=== PATIENT | male | born 1980 | race American Indian/Alaskan Native ===

== ENCOUNTER 2016-11-07 16:03 | Emergency (ER) | payer OTHER ==
[2016-11-07] MEDS ORDERED: MOTRIN PO ONE (19:18)
[2016-11-07] MEDS ORDERED: ULTRAM PO ONE (19:21)
[2016-11-07] MEDS ORDERED: MOTRIN ONE (19:38)
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
[2016-11-07 21:09] VITALS: BP 116/77
== END 2016-11-07 21:07 | disposition home or self-care (01) ==
LOC: ED 16:03
DX: S13.4XXA Sprain of ligaments of cervical spine, initial encounter (principal); S39.012A Strain of muscle, fascia and tendon of lower back, initial encounter; J45.909 Unspecified asthma, uncomplicated; V49.49XA Driver injured in collision with other motor vehicles in traffic accident, initial encounter; Y93.89 Activity, other specified; Y99.9 Unspecified external cause status; Y92.410 Unspecified street and highway as the place of occurrence of the external cause
CPT/HCPCS: 70450; 72072; 72100

== ENCOUNTER 2016-12-21 07:32 | Outpatient (CLI) | payer OTHER ==
[2016-12-21] MEDS ORDERED: PROVENTIL IH ONE (07:56)
== END 2016-12-21 07:33 | disposition home or self-care (01) ==
LOC: PF 07:32
PROVIDERS: ATTEND Internal Medicine
DX: J45.909 Unspecified asthma, uncomplicated (principal); J18.9 Pneumonia, unspecified organism; J47.9 Bronchiectasis, uncomplicated; Z22.321 Carrier or suspected carrier of Methicillin susceptible Staphylococcus aureus
CPT/HCPCS: 94060; 94640

== ENCOUNTER 2017-01-23 04:10 | Inpatient (IN) | payer OTHER ==
[~2017-01-23 04:10] MED LIST: INTROPIN DRIP 800 MG/D5W 250 ML IV ONE; SODIUM BICARBONATE IV ONE
[2017-01-23] MEDS ORDERED: PROVENTIL IH ONE ×2 (04:14→04:25)
[2017-01-23] MEDS ORDERED: ATROVENT IH ONE ×2 (04:14→04:25)
[2017-01-23] MEDS ORDERED: LEVOPHED DRIP 4 MG/NS 250 ML 4 MG/250 ML BAG IV ONE (04:23)
[2017-01-23] MEDS ORDERED: MAGNESIUM SULFATE 2GM/50ML 2 GM/50 ML BAG IV ONE (04:25)
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
[2017-01-23] MEDS ORDERED: XOPENEX IH ONE ×2 (04:43→05:19)
[2017-01-23 04:53] LABS: Urine Drugs of Abuse Note Disclamer
[2017-01-23] MEDS ORDERED: ARTIFICIAL TEARS OPHTH OINT OU PRN (04:53)
[2017-01-23] MEDS ORDERED: VASELINE LIP THERAPY TP PRN (04:53)
[2017-01-23] MEDS ORDERED: ATIVAN 100 MG in NACL 0.9% 50 ML, VIAFLEX EMPTY CONTAINER 0 ML IV SCH (05:00)
[2017-01-23] MEDS ORDERED: NACL 0.9% 500 ML IV SCH (05:00)
[2017-01-23] MEDS ORDERED: LEVOPHED DRIP 4 MG/NS 250 ML 4 MG/250 ML BAG IV SCH (05:00)
[2017-01-23] MEDS ORDERED: ATIVAN ONE (05:00)
[2017-01-23] MEDS ORDERED: ATIVAN IV ONE (05:01)
[2017-01-23 05:15] LABS: Bilirubin,Urine NEG (Negative); Blood,Urine NEG (Negative); Ketones,Urine NEG (Negative); Leukocyte Esterase,Urine NEG (Negative); Mucus,Urine FEW /HPF; Nitrite,Urine NEG (Negative); Protein,Urine <15 mg/dL mg/dL (Negative); Sperm,Urine 2+ /HPF (NP); Urobilinogen,Urine < 2.0 mg/dL (<2.0)
[2017-01-23 05:19] LABS: Hematocrit 46.3 % (35.5-45.6); Hemoglobin 14.9 gm/dl (11.8-15.2); Mean Corpuscular HGB Conc 32 % (32-34); Mean Corpuscular Hemoglobin 30 pg (28-32); Mean Corpuscular Volume 93 fl (84-94)
[2017-01-23 05:26] LABS: INR 0.98 (0.87-1.13); Partial Thromboplastin Time 27.6 Sec. (24.2-36.6)
[2017-01-23 05:29] LABS: ISTAT Base Excess 6; ISTAT HCO3 31.8; ISTAT PCO2 61.9 (35-45); ISTAT PH 7.318 (7.35-7.45); ISTAT PO2 325 (80-105); ISTAT SO2 100; ISTAT TCO2 34
[2017-01-23 05:29] LABS: ISTAT Base Excess 1; ISTAT HCO3 29.7; ISTAT PCO2 79.2 (35-45); ISTAT PH 7.182 (7.35-7.45); ISTAT PO2 50 (80-105); ISTAT SO2 74; ISTAT TCO2 32
[2017-01-23 05:31] LABS: White Blood Count 24.4 K/mm3 (4.5-11.0)
[2017-01-23] MEDS ORDERED: NACL 0.9% 1000 ML 500 ML IV ONE (05:38)
[2017-01-23 05:44] LABS: Creatine Kinase MB 7.1 ng/mL (0.0-4.0)
[2017-01-23 05:46] LABS: Alanine Aminotransferase 25 units/L (7-56); Albumin 4.8 g/dL (3.9-5); Albumin/Globulin Ratio 1.5 %; Alkaline Phosphatase 83 units/L (35-129); Anion Gap 29 mmol/L; BUN/Creatinine Ratio 11.11; Blood Urea Nitrogen 10 mg/dL (9-20); Calcium 9.9 mg/dL (8.4-10.2); Carbon Dioxide 23 mmol/L (22-30); Chloride 99.4 mmol/L (98-107); Creatine Kinase 471 units/L (55-170); Glucose 71 mg/dL (75-100); Potassium 5.6 mmol/L (3.6-5.0); Sodium 146 mmol/L (137-145); Total Protein 8.1 g/dL (6.3-8.2)
[2017-01-23 06:04] LABS: Basophils % (Manual) 0 % (0.0-1.8); Blastocytes % (Manual) 0 %; Platelet Clumps 1+
[2017-01-23 06:05] LABS: Anisocytosis 1+; Diff Status Complete; Platelet Estimate Appe
[2017-01-23 06:08] LABS: Platelet Count 55 K/mm3 (140-440)
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
[2017-01-23] MEDS ORDERED: DUONEB *Not for PRN Use IH ONE (07:47)
[2017-01-23] MEDS: DUONEB *Not for PRN Use IH SCH ×3 (07:49→13:42)
[2017-01-23 08:17] LABS: Creatine Kinase MB 6.9 ng/mL (0.0-4.0)
[2017-01-23 08:18] LABS: Creatine Kinase 503 units/L (55-170)
--- NOTE | 2017-01-23 08:56 | Event Note ---
Date: 01/23/17 Patient is 36yo presented with asthma exacerbation, then collapsed in ED, cardio -resp arrest.Code asif run for 12 mins , intubated,resuscitated and now admitted to ICU. I have seen and examined him. Will obtain CT head. Obtain cardiology consult, Echo. I discussed with his mother on phone.
--- NOTE | 2017-01-23 09:14 | XRay Report ---
AP CHEST :01/23/17 04:10:00 CLINICAL: Respiratory arrest. Post intubation. COMPARISON:11/22/15 FINDINGS: The endotracheal tube is in satisfactory position. A nasogastric tube tip is below the diaphragm and not included on the image. Normal heart and pulmonary vessels. The lungs are normally expanded and clear. No pneumothorax. IMPRESSION: Satisfactory position of the endotracheal tube.No CHF or pneumonia.
[2017-01-23] MEDS ORDERED: DIPRIVAN 10 MG/ML 1,000 MG/100 ML BOTTLE IV ONE (09:18)
[2017-01-23] MEDS: DIPRIVAN 10 MG/ML 1,000 MG/100 ML BOTTLE IV SCH ×2 (09:35→20:26)
[2017-01-23] MEDS: LOVENOX SUB-Q SCH (10:04)
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
[2017-01-23] MEDS: VITAMIN B-1 PO SCH (11:06)
[2017-01-23] MEDS ORDERED: PANCREAZE DR 10,500 UNIT FEEDTUBE PRN (11:06)
[2017-01-23] MEDS ORDERED: SODIUM BICARBONATE FEEDTUBE PRN (11:06)
[2017-01-23] MEDS ORDERED: SIMPLE SYRUP FEEDTUBE PRN ×2 (11:06)
[2017-01-23] MEDS: FOLVITE PO SCH (11:06)
[2017-01-23 12:53] LABS: Creatine Kinase MB 9.2 ng/mL (0.0-4.0)
[2017-01-23 12:54] LABS: Creatine Kinase 523 units/L (55-170)
[2017-01-23] MEDS ORDERED: SODIUM PHOSPHATE 30 MMOL in NACL 0.9% 500 ML 500 ML IV ONE (12:56)
[2017-01-23] MEDS ORDERED: MORPHINE IV ONE (15:24)
[2017-01-23] MEDS: TYLENOL PO PRN (15:56)
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
[2017-01-23] MEDS ORDERED: D5/0.45NS 1,000 ML IV SCH (17:00)
[2017-01-23] MEDS: NACL 0.45% 1000 ML 1,000 ML IV SCH (17:13)
[2017-01-23] MEDS: XOPENEX IH SCH ×2 (18:19→23:30)
[2017-01-23] MEDS: BROVANA NEBU IH SCH (19:39)
[2017-01-23] MEDS: PULMICORT IH SCH (19:39)
[2017-01-24] MEDS: NACL 0.45% 1000 ML 1,000 ML IV SCH (02:42)
[2017-01-24 05:04] LABS: Hematocrit 40.5 % (35.5-45.6); Hemoglobin 13.6 gm/dl (11.8-15.2); Mean Corpuscular HGB Conc 34 % (32-34); Mean Corpuscular Hemoglobin 30 pg (28-32); Mean Corpuscular Volume 90 fl (84-94); Red Blood Count 4.52 M/mm3 (3.65-5.03); Red Cell Distribution Width 14.5 % (13.2-15.2)
[2017-01-24 05:05] LABS: ISTAT Base Excess 6; ISTAT HCO3 29.6; ISTAT PCO2 40.5 (35-45); ISTAT PH 7.472 (7.35-7.45); ISTAT PO2 92 (80-105); ISTAT SO2 98; ISTAT TCO2 31
[2017-01-24 05:22] LABS: Anion Gap 18 mmol/L; BUN/Creatinine Ratio 17.14; Blood Urea Nitrogen 12 mg/dL (9-20); Calcium 8.6 mg/dL (8.4-10.2); Carbon Dioxide 25 mmol/L (22-30); Chloride 97.3 mmol/L (98-107); Glucose 197 mg/dL (75-100); Potassium 4.3 mmol/L (3.6-5.0); Sodium 136 mmol/L (137-145)
[2017-01-24 05:24] LABS: Platelet Count 45 K/mm3 (140-440); White Blood Count 24.7 K/mm3 (4.5-11.0)
[2017-01-24 06:12] LABS: Anisocytosis 1+; Basophils % (Manual) 0 % (0.0-1.8); Blastocytes % (Manual) 0 %; Eosinophils % (Manual) 0 % (0.0-4.3); Platelet Clumps 1+; Platelet Estimate Consistent w Auto
[2017-01-24 06:13] LABS: Diff Status Complete
[2017-01-24] MEDS ORDERED: NACL 0.9% 1000 ML 1,000 ML IV SCH (07:00)
--- NOTE | 2017-01-24 07:36 | XRay Report ---
AP CHEST: HISTORY: Followup respiratory failure The endotracheal tube and nasogastric tube remain in adequate position. AP view of the chest demonstrates a normal mediastinal and cardiac contour with clear lungs and normal bony and soft tissue structures. IMPRESSION: Unremarkable AP chest. No change since yesterday's exam.
--- NOTE | 2017-01-24 07:57 | Progress Note ---
Assessment and Plan Assessment and plan: Cardio-respiratory arrest. Patient collapsed as soon as he walked into ED. Donta asif was called and he was resuscitated, intubated. Pulm following Acute asthma exacerbation. On solu-medrol, Duoneb Acute respiratory failure due to asthma exacerbation. Cont vent management Fever may be SIRS. To rule out sepsis. Start iv Antibiotics. Leukocytosis. WBC 24.2. Start empiric Antibiotics Thrombocytopenia. etiology unclear. Platelets 45 today. requested records from [facility] DVT prophylaxis with SCDs only. Not on heparin/Lovenox because of thrombocytopenia Full code status History Interval history: Patient with asthma exacerbation, cardio-respiratory arrest, Still intubated, Now has fever Hospitalist Physical - Physical exam Narrative exam: Gen Appearance: Intubated, sedated HEENT: normocephalic, atraumatic Neck: supple, no JVD Lungs: clear to auscultation bilaterally, no crackles or wheezes Heart: S1 and S2 regular, no murmurs or gallop Abdomen: Soft, non-tender, non-distended, normal bowel sounds Extremity: No edema, clubbing or cyanosis Neuro : Intubated,sedated - Constitutional Vitals: Temp Pulse Resp BP Pulse Ox 100.9 F H 100 H 20 129/79 99 01/24/17 03:36 01/24/17 06:00 01/24/17 06:00 01/24/17 06:00 01/24/17 06:00 General appearance: Present: other (patient is intubated.) Results - Labs CBC & Chem 7: 01/24/17 03:38 01/24/17 03:38 Labs: Laboratory Last Values WBC 24.7 K/mm3 (4.5-11.0) H 01/24/17 03:38 RBC 4.52 M/mm3 (3.65-5.03) 01/24/17 03:38 Hgb 13.6 gm/dl (11.8-15.2) 01/24/17 03:38 Hct 40.5 % (35.5-45.6) 01/24/17 03:38 MCV 90 fl (84-94) D 01/24/17 03:38 MCH 30 pg (28-32) 01/24/17 03:38 MCHC 34 % (32-34) 01/24/17 03:38 RDW 14.5 % (13.2-15.2) 01/24/17 03:38 Plt Count 45 K/mm3 (140-440) L 01/24/17 03:38 Lymph # Frame Gate Mortiser Operator 01/23/17 04:22 Add Manual Diff Complete 01/24/17 03:38 Total Counted 100 01/24/17 03:38 Seg Neutrophils % Frame Gate Mortiser Operator 01/23/17 04:22 Seg Neuts % (Manual) 77.0 % (40.0-70.0) H 01/24/17 03:38 Band Neutrophils % 11.0 % 01/24/17 03:38 Lymphocytes % (Manual) 6.0 % (13.4-35.0) L 01/24/17 03:38 Reactive Lymphs % (Man) 0 % 01/24/17 03:38 Monocytes % (Manual) 6.0 % (0.0-7.3) 01/24/17 03:38 Eosinophils % (Manual) 0 % (0.0-4.3) 01/24/17 03:38 Basophils % (Manual) 0 % (0.0-1.8) 01/24/17 03:38 Metamyelocytes % 0 % 01/24/17 03:38 Myelocytes % 0 % 01/24/17 03:38 Promyelocytes % 0 % 01/24/17 03:38 Blast Cells % 0 % 01/24/17 03:38 Nucleated RBC % Not Reportable 01/24/17 03:38 Seg Neutrophils # Man 19.0 K/mm3 (1.8-7.7) H 01/24/17 03:38 Band Neutrophils # 2.7 K/mm3 01/24/17 03:38 Lymphocytes # (Manual) 1.5 K/mm3 (1.2-5.4) 01/24/17 03:38 Abs React Lymphs (Man) 0.0 K/mm3 01/24/17 03:38 Monocytes # (Manual) 1.5 K/mm3 (0.0-0.8) H 01/24/17 03:38 Eosinophils # (Manual) 0.0 K/mm3 (0.0-0.4) 01/24/17 03:38 Basophils # (Manual) 0.0 K/mm3 (0.0-0.1) 01/24/17 03:38 Metamyelocytes # 0.0 K/mm3 01/24/17 03:38 Myelocytes # 0.0 K/mm3 01/24/17 03:38 Promyelocytes # 0.0 K/mm3 01/24/17 03:38 Blast Cells # 0.0 K/mm3 01/24/17 03:38 WBC Morphology Not Reportable 01/24/17 03:38 Hypersegmented Neuts Not Reportable 01/24/17 03:38 Hyposegmented Neuts Not Reportable 01/24/17 03:38 Hypogranular Neuts Not Reportable 01/24/17 03:38 Smudge Cells Not Reportable 01/24/17 03:38 Toxic Granulation Not Reportable 01/24/17 03:38 Toxic Vacuolation Not Reportable 01/24/17 03:38 Dohle Bodies Not Reportable 01/24/17 03:38 Pelger-Huet Anomaly Not Reportable 01/24/17 03:38 Noe Rods Not Reportable 01/24/17 03:38 Platelet Estimate Consistent w auto 01/24/17 03:38 Clumped Platelets 1+ 01/24/17 03:38 Plt Clumps, EDTA Not Reportable 01/24/17 03:38 Large Platelets Not Reportable 01/24/17 03:38 Giant Platelets Not Reportable 01/24/17 03:38 Platelet Satelliting Not Reportable 01/24/17 03:38 Plt Morphology Comment Not Reportable 01/24/17 03:38 RBC Morphology Not Reportable 01/24/17 03:38 Dimorphic RBCs Not Reportable 01/24/17 03:38 Polychromasia Not Reportable 01/24/17 03:38 Hypochromasia Not Reportable 01/24/17 03:38 Poikilocytosis Not Reportable 01/24/17 03:38 Anisocytosis 1+ 01/24/17 03:38 Microcytosis Not Reportable 01/24/17 03:38 Macrocytosis Not Reportable 01/24/17 03:38 Spherocytes Not Reportable 01/24/17 03:38 Pappenheimer Bodies Not Reportable 01/24/17 03:38 Sickle Cells Not Reportable 01/24/17 03:38 Target Cells Not Reportable 01/24/17 03:38 Tear Drop Cells Not Reportable 01/24/17 03:38 Ovalocytes Not Reportable 01/24/17 03:38 Helmet Cells Not Reportable 01/24/17 03:38 Dawkins-Kismet Bodies Not Reportable 01/24/17 03:38 [place] Rings Not Reportable 01/24/17 03:38 [place] Cells Not Reportable 01/24/17 03:38 Bite Cells Not Reportable 01/24/17 03:38 Crenated Cell Not Reportable 01/24/17 03:38 Elliptocytes Not Reportable 01/24/17 03:38 Acanthocytes (Spur) Not Reportable 01/24/17 03:38 Rouleaux Not Reportable 01/24/17 03:38 Hemoglobin C Crystals Not Reportable 01/24/17 03:38 Schistocytes Not Reportable 01/24/17 03:38 Malaria parasites Not Reportable 01/24/17 03:38 Luis Carlos Bodies Not Reportable 01/24/17 03:38 Hem Pathologist Commnt No 01/24/17 03:38 PT 13.5 Sec. (12.2-14.9) 01/23/17 04:22 INR 0.98 (0.87-1.13) 01/23/17 04:22 APTT 27.6 Sec. (24.2-36.6) 01/23/17 04:22 D-Dimer 204.60 ng/mlDDU (0-234) 01/23/17 Unknown POC ABG pH 7.472 (7.35-7.45) H 01/24/17 04:46 POC ABG pCO2 40.5 (35-45) 01/24/17 04:46 POC ABG pO2 92 (80-105) 01/24/17 04:46 POC ABG HCO3 29.6 01/24/17 04:46 POC ABG Total CO2 31 01/24/17 04:46 POC ABG O2 Sat 98 01/24/17 04:46 POC ABG Base Excess 6 01/24/17 04:46 FiO2 40 % 01/24/17 04:46 Sodium 136 mmol/L (137-145) L D 01/24/17 03:38 Potassium 4.3 mmol/L (3.6-5.0) 01/24/17 03:38 Chloride 97.3 mmol/L (98-107) L 01/24/17 03:38 Carbon Dioxide 25 mmol/L (22-30) 01/24/17 03:38 Anion Gap 18 mmol/L 01/24/17 03:38 BUN 12 mg/dL (9-20) 01/24/17 03:38 Creatinine 0.7 mg/dL (0.8-1.5) L 01/24/17 03:38 Estimated GFR > 60 ml/min 01/24/17 03:38 BUN/Creatinine Ratio 17.14 % 01/24/17 03:38 Glucose 197 mg/dL (75-100) H 01/24/17 03:38 POC Glucose 193 (70-105) H 01/24/17 05:04 Calcium 8.6 mg/dL (8.4-10.2) 01/24/17 03:38 Phosphorus 1.30 mg/dL (2.5-4.5) L 01/23/17 12:27 Magnesium 3.30 mg/dL (1.7-2.3) H 01/23/17 10:24 Total Bilirubin 0.70 mg/dL (0.1-1.2) 01/23/17 04:23 AST 26 units/L (5-40) 01/23/17 04:23 ALT 25 units/L (7-56) 01/23/17 04:23 Alkaline Phosphatase 83 units/L (35-129) 01/23/17 04:23 Total Creatine Kinase 523 units/L (55-170) H 01/23/17 12:27 CK-MB (CK-2) 9.2 ng/mL (0.0-4.0) H 01/23/17 12:27 CK-MB (CK-2) Rel Index 1.7 (0-4) 01/23/17 12:27 Troponin T < 0.010 ng/mL (0.00-0.029) 01/23/17 12:27 NT-Pro-B Natriuret Pep 22.36 pg/mL (0-450) 01/23/17 04:23 Total Protein 8.1 g/dL (6.3-8.2) 01/23/17 04:23 Albumin 4.8 g/dL (3.9-5) 01/23/17 04:23 Albumin/Globulin Ratio 1.5 % 01/23/17 04:23 Urine Color Yellow (Yellow) 01/23/17 Unknown Urine Turbidity Clear (Clear) 01/23/17 Unknown Urine pH 5.0 (5.0-7.0) 01/23/17 Unknown Ur Specific [place] 1.018 (1.003-1.030) 01/23/17 Unknown Urine Protein <15 mg/dl mg/dL (Negative) 01/23/17 Unknown Urine Glucose (UA) Neg mg/dL (Negative) 01/23/17 Unknown Urine Ketones Neg mg/dL (Negative) 01/23/17 Unknown Urine Blood Neg (Negative) 01/23/17 Unknown Urine Nitrite Neg (Negative) 01/23/17 Unknown Urine Bilirubin Neg (Negative) 01/23/17 Unknown Urine Urobilinogen < 2.0 mg/dL (<2.0) 01/23/17 Unknown Ur Leukocyte Esterase Neg (Negative) 01/23/17 Unknown Urine WBC (Auto) 2.0 /HPF (0.0-6.0) 01/23/17 Unknown Urine RBC (Auto) 1.0 /HPF (0.0-6.0) 01/23/17 Unknown Urine Mucus Few /HPF 01/23/17 Unknown Urine Sperm 2+ /HPF (REGISTERED PHARMACIST) 01/23/17 Unknown Urine Opiates Screen Presumptive positive 01/23/17 Unknown Urine Methadone Screen Presumptive negative 01/23/17 Unknown Ur Barbiturates Screen Presumptive positive 01/23/17 Unknown Ur Phencyclidine Scrn Presumptive negative 01/23/17 Unknown Ur Amphetamines Screen Presumptive negative 01/23/17 Unknown U Benzodiazepines Scrn Presumptive positive 01/23/17 Unknown Urine Cocaine Screen Presumptive negative 01/23/17 Unknown U Marijuana (THC) Screen Presumptive negative 01/23/17 Unknown Drugs of Abuse Note Disclamer 01/23/17 Unknown
[2017-01-24] MEDS: PULMICORT IH SCH ×2 (08:05→20:18)
[2017-01-24] MEDS: BROVANA NEBU IH SCH ×2 (08:05→20:20)
[2017-01-24] MEDS: XOPENEX IH SCH ×2 (08:07→15:35)
[2017-01-24] MEDS: PEPCID PO SCH ×2 (09:34→22:20)
[2017-01-24] MEDS: FOLVITE PO SCH (09:34)
[2017-01-24] MEDS: VITAMIN B-1 PO SCH (09:34)
[2017-01-24] MEDS: LOVENOX SUB-Q SCH (09:35)
[2017-01-24] MEDS ORDERED: VANCOMYCIN VIAL IV ONE (10:49)
[2017-01-24] MEDS ORDERED: VANCOMYCIN PHARMACY TO DOSE IV SCH (11:00)
--- NOTE | 2017-01-24 11:48 | Progress Note ---
Assessment and Plan 36 y/o male with acute respiratory failure, thought secondary to asthma exacerbation. 1. Changed steroids to 60q6, continue 2. Added pulmicort and brovana, continue 3. continue scheduled short acting nebs 4. Will obtain EEG off sedation. Appreciate neuro assistance 5. DVT and GI prophylaxis 6. Feed patient, continue CCT 31 minutes. Subjective Date of service: 01/24/17 Interval history: No acute events. Still with jerking movements. Maintained with propofol. Family at bedside. I spoke with mom on yesterday. Platelets. Objective Vital Signs - 12hr 01/23/17 01/23/17 01/24/17 23:47 23:50 00:00 Temperature Pulse Rate 113 H 111 H Pulse Rate [ 112 H Anterior Bilateral Throughout] Respiratory 16 17 Rate Respiratory 18 Rate [Anterior Bilateral Throughout] Blood Pressure 136/82 128/80 O2 Sat by Pulse 98 98 Oximetry 01/24/17 01/24/17 01/24/17 00:10 00:20 00:30 Temperature Pulse Rate 110 H 109 H 116 H Pulse Rate [ Anterior Bilateral Throughout] Respiratory 18 19 19 Rate Respiratory Rate [Anterior Bilateral Throughout] Blood Pressure 128/80 135/80 131/78 O2 Sat by Pulse 98 99 97 Oximetry 01/24/17 01/24/17 01/24/17 00:40 00:50 01:00 Temperature Pulse Rate 114 H 117 H 117 H Pulse Rate [ Anterior Bilateral Throughout] Respiratory 18 18 18 Rate Respiratory Rate [Anterior Bilateral Throughout] Blood Pressure 131/78 135/80 123/78 O2 Sat by Pulse 99 98 97 Oximetry 01/24/17 01/24/17 01/24/17 01:10 01:20 01:30 Temperature Pulse Rate 114 H 108 H 112 H Pulse Rate [ Anterior Bilateral Throughout] Respiratory 19 19 19 Rate Respiratory Rate [Anterior Bilateral Throughout] Blood Pressure 123/78 136/78 138/76 O2 Sat by Pulse 98 98 97 Oximetry 01/24/17 01/24/17 01/24/17 01:40 01:50 02:00 Temperature Pulse Rate 108 H 111 H 118 H Pulse Rate [ Anterior Bilateral Throughout] Respiratory 19 19 17 Rate Respiratory Rate [Anterior Bilateral Throughout] Blood Pressure 138/76 134/82 134/83 O2 Sat by Pulse 98 98 97 Oximetry 01/24/17 01/24/17 01/24/17 02:10 02:20 02:30 Temperature Pulse Rate 119 H 123 H 126 H Pulse Rate [ Anterior Bilateral Throughout] Respiratory 18 20 24 Rate Respiratory Rate [Anterior Bilateral Throughout] Blood Pressure 134/83 133/91 122/92 O2 Sat by Pulse 98 99 97 Oximetry 01/24/17 01/24/17 01/24/17 02:40 02:50 03:00 Temperature Pulse Rate 122 H 116 H 105 H Pulse Rate [ Anterior Bilateral Throughout] Respiratory 21 19 18 Rate Respiratory Rate [Anterior Bilateral Throughout] Blood Pressure 122/92 134/83 132/87 O2 Sat by Pulse 99 98 Oximetry 01/24/17 01/24/17 01/24/17 03:10 03:20 03:30 Temperature Pulse Rate 105 H 109 H 105 H Pulse Rate [ Anterior Bilateral Throughout] Respiratory 19 19 18 Rate Respiratory Rate [Anterior Bilateral Throughout] Blood Pressure 132/87 139/81 139/81 O2 Sat by Pulse 99 98 98 Oximetry 01/24/17 01/24/17 01/24/17 03:36 03:40 03:41 Temperature 100.9 F H Pulse Rate 108 H 109 H Pulse Rate [ Anterior Bilateral Throughout] Respiratory 19 Rate Respiratory Rate [Anterior Bilateral Throughout] Blood Pressure 122/74 122/74 O2 Sat by Pulse 97 97 Oximetry 01/24/17 01/24/17 01/24/17 03:50 04:00 04:10 Temperature Pulse Rate 111 H 110 H 109 H Pulse Rate [ Anterior Bilateral Throughout] Respiratory 19 19 19 Rate Respiratory Rate [Anterior Bilateral Throughout] Blood Pressure 126/76 120/76 120/76 O2 Sat by Pulse 98 96 97 Oximetry 01/24/17 01/24/17 01/24/17 04:20 04:30 04:40 Temperature Pulse Rate 108 H 104 H 110 H Pulse Rate [ Anterior Bilateral Throughout] Respiratory 19 18 19 Rate Respiratory Rate [Anterior Bilateral Throughout] Blood Pressure 134/84 134/86 134/86 O2 Sat by Pulse 97 95 99 Oximetry 01/24/17 01/24/17 01/24/17 04:50 05:00 05:10 Temperature Pulse Rate 111 H Pulse Rate [ Anterior Bilateral Throughout] Respiratory 19 Rate Respiratory Rate [Anterior Bilateral Throughout] Blood Pressure 134/86 134/84 134/84 O2 Sat by Pulse 100 100 100 Oximetry 01/24/17 01/24/17 01/24/17 05:20 05:30 05:40 Temperature Pulse Rate 101 H 97 H 94 H Pulse Rate [ Anterior Bilateral Throughout] Respiratory 18 20 20 Rate Respiratory Rate [Anterior Bilateral Throughout] Blood Pressure 135/84 141/83 141/83 O2 Sat by Pulse 100 100 100 Oximetry 01/24/17 01/24/17 01/24/17 05:50 06:00 06:10 Temperature Pulse Rate 97 H 100 H 102 H Pulse Rate [ Anterior Bilateral Throughout] Respiratory 20 20 20 Rate Respiratory Rate [Anterior Bilateral Throughout] Blood Pressure 141/83 129/79 129/79 O2 Sat by Pulse 99 99 99 Oximetry 01/24/17 01/24/17 01/24/17 06:20 06:30 06:40 Temperature Pulse Rate 105 H 109 H 100 H Pulse Rate [ Anterior Bilateral Throughout] Respiratory 17 18 21 Rate Respiratory Rate [Anterior Bilateral Throughout] Blood Pressure 129/79 116/86 116/86 O2 Sat by Pulse 96 97 99 Oximetry 01/24/17 01/24/17 01/24/17 06:50 07:00 07:10 Temperature Pulse Rate 102 H 105 H 101 H Pulse Rate [ Anterior Bilateral Throughout] Respiratory 17 21 18 Rate Respiratory Rate [Anterior Bilateral Throughout] Blood Pressure 116/86 136/77 136/77 O2 Sat by Pulse 99 98 98 Oximetry 01/24/17 01/24/17 01/24/17 07:20 07:30 07:40 Temperature Pulse Rate 105 H 94 H 96 H Pulse Rate [ Anterior Bilateral Throughout] Respiratory 19 19 20 Rate Respiratory Rate [Anterior Bilateral Throughout] Blood Pressure 136/77 139/69 139/69 O2 Sat by Pulse 98 98 98 Oximetry 01/24/17 01/24/17 01/24/17 07:50 08:00 08:10 Temperature 99.9 F H Pulse Rate 116 H 102 H 117 H Pulse Rate [ 115 H Anterior Bilateral Throughout] Respiratory 20 16 19 Rate Respiratory 20 Rate [Anterior Bilateral Throughout] Blood Pressure 139/69 132/98 132/98 O2 Sat by Pulse 97 98 97 Oximetry 01/24/17 01/24/17 01/24/17 08:15 08:20 08:30 Temperature Pulse Rate 114 H 112 H 100 H Pulse Rate [ 114 H Anterior Bilateral Throughout] Respiratory 19 19 Rate Respiratory 18 Rate [Anterior Bilateral Throughout] Blood Pressure 132/98 132/98 131/89 O2 Sat by Pulse 97 97 100 Oximetry 01/24/17 11:23 Temperature Pulse Rate 112 H Pulse Rate [ Anterior Bilateral Throughout] Respiratory Rate Respiratory Rate [Anterior Bilateral Throughout] Blood Pressure 148/90 O2 Sat by Pulse 98 Oximetry Constitutional: no acute distress, comatose (secondary to medications) Eyes: non-icteric ENT: other (orally intubated sedated) Neck: supple Effort: mildly labored Ascultation: Bilateral: clear Percussion: Bilateral: not dull Cardiovascular: regular rate and rhythm (but sinus tach) Gastrointestinal: normoactive bowel sounds, other (abdominal muscles are contracted) Integumentary: normal Extremities: no cyanosis, no edema, pink and warm, pulses normal CBC and BMP: 01/24/17 03:38 01/24/17 03:38 ABG, PT/INR, D-dimer: ABG POC ABG pH 7.472 (7.35-7.45) H 01/24/17 04:46 POC ABG pCO2 40.5 (35-45) 01/24/17 04:46 POC ABG pO2 92 (80-105) 01/24/17 04:46 POC ABG HCO3 29.6 01/24/17 04:46 POC ABG Total CO2 31 01/24/17 04:46 POC ABG O2 Sat 98 01/24/17 04:46 PT/INR, D-dimer PT 13.5 Sec. (12.2-14.9) 01/23/17 04:22 INR 0.98 (0.87-1.13) 01/23/17 04:22 D-Dimer 204.60 ng/mlDDU (0-234) 01/23/17 Unknown Abnormal lab findings: Abnormal Labs 01/23/17 01/23/17 01/23/17 07:37 10:24 12:27 WBC Plt Count Seg Neuts % (Manual) Lymphocytes % (Manual) Seg Neutrophils # Man Monocytes # (Manual) POC ABG pH Sodium Chloride Creatinine Glucose POC Glucose Phosphorus Magnesium 3.30 H Total Creatine Kinase 503 H 523 H CK-MB (CK-2) 6.9 H 9.2 H 01/23/17 01/23/17 01/23/17 12:27 16:50 21:21 WBC Plt Count Seg Neuts % (Manual) Lymphocytes % (Manual) Seg Neutrophils # Man Monocytes # (Manual) POC ABG pH Sodium Chloride Creatinine Glucose POC Glucose 166 H 158 H Phosphorus 1.30 L Magnesium Total Creatine Kinase CK-MB (CK-2) 01/24/17 01/24/17 01/24/17 01:49 03:38 03:38 WBC 24.7 H Plt Count 45 L Seg Neuts % (Manual) 77.0 H Lymphocytes % (Manual) 6.0 L Seg Neutrophils # Man 19.0 H Monocytes # (Manual) 1.5 H POC ABG pH Sodium 136 L D Chloride 97.3 L Creatinine 0.7 L Glucose 197 H POC Glucose 183 H Phosphorus Magnesium Total Creatine Kinase CK-MB (CK-2) 01/24/17 01/24/17 01/24/17 04:46 05:04 09:00 WBC Plt Count Seg Neuts % (Manual) Lymphocytes % (Manual) Seg Neutrophils # Man Monocytes # (Manual) POC ABG pH 7.472 H Sodium Chloride Creatinine Glucose POC Glucose 193 H 220 H Phosphorus Magnesium Total Creatine Kinase CK-MB (CK-2)
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
--- NOTE | 2017-01-24 12:28 | Cat Scan Report ---
CT HEAD WITHOUT CONTRAST INDICATION: Collapse, jerky movement. COMPARISON: 11/07/2016. FINDINGS: Noncontrast head CT repeated for motion, though again suggests normal ventricles and sulci. No definite acute infarct, hemorrhage, mass effect or midline shift. No abnormal extra axial fluid collections. Normal posterior fossa with preserved basilar cisterns. Normal eye globes. A new nasogastric tube courses the left nasal passage. Mild pansinusitis also seen except for right frontal sinus involvement. Clear bilateral mastoid air cells. Normal calvarium and scalp. Few radiopaque dental material. ET tube also now noted. CONCLUSION: Interval intubation, nasogastric tube placement and mild increased sinusitis without definite acute intracranial CT abnormality on this limited exam, as described. Please correlate. Thank you for the opportunity to participate in this patient's care.
--- NOTE | 2017-01-24 12:58 | Progress Note ---
Assessment and Plan To continue present management. Possible anoxic encephalopathy. Prognosis is guarded. Discussed with family members at bedside. - Patient Problems (1) Cardiorespiratory arrest Current Visit: Yes Status: Acute (2) Myoclonus Current Visit: Yes Status: Acute (3) Shortness of breath Current Visit: Yes Status: Acute (4) Status asthmaticus Current Visit: Yes Status: Acute Qualifiers: Asthma severity: A Subjective Date of service: 01/24/17 Interval history: Remains comatose, not responding to painful stimuli. Intubated on assisted mechanical ventilation. Known to have normal left ventricular systolic function by echocardiogram. He has thrombocytopenia with platelet count of 45.Has myoclonic jerks. (Seen by Neurologist). Objective Vital Signs Temp Pulse Pulse Pulse Pulse Resp Resp 01/24/17 12:10 126 H 01/24/17 12:00 100.2 F H 01/24/17 11:23 112 H 01/24/17 08:30 100 H 01/24/17 08:20 112 H 01/24/17 08:15 114 H 114 H 18 01/24/17 08:10 117 H 19 01/24/17 08:00 99.9 F H 102 H 115 H 16 01/24/17 07:50 116 H 20 01/24/17 07:40 96 H 20 01/24/17 07:30 94 H 01/24/17 07:20 105 H 01/24/17 07:10 101 H 01/24/17 07:00 105 H 01/24/17 06:50 102 H 01/24/17 06:40 100 H 01/24/17 06:30 109 H 18 01/24/17 06:20 105 H 01/24/17 06:10 102 H 01/24/17 06:00 100 H 01/24/17 05:50 97 H 01/24/17 05:40 94 H 01/24/17 05:30 97 H 01/24/17 05:20 101 H 01/24/17 05:10 111 H 01/24/17 05:00 01/24/17 04:50 01/24/17 04:40 110 H 01/24/17 04:30 104 H 01/24/17 04:20 108 H 01/24/17 04:10 109 H 19 01/24/17 04:00 110 H 19 01/24/17 03:50 111 H 19 01/24/17 03:41 109 H 01/24/17 03:40 108 H 01/24/17 03:36 100.9 F H 01/24/17 03:30 105 H 18 01/24/17 03:20 109 H 19 01/24/17 03:10 105 H 19 01/24/17 03:00 105 H 18 01/24/17 02:50 116 H 19 01/24/17 02:40 122 H 21 01/24/17 02:30 126 H 24 01/24/17 02:20 123 H 20 01/24/17 02:10 119 H 18 01/24/17 02:00 118 H 17 01/24/17 01:50 111 H 01/24/17 01:40 108 H 01/24/17 01:30 112 H 01/24/17 01:20 108 H 01/24/17 01:10 114 H 01/24/17 01:00 117 H 18 01/24/17 00:50 117 H 18 01/24/17 00:40 114 H 18 01/24/17 00:30 116 H 01/24/17 00:20 109 H 01/24/17 00:10 110 H 18 01/24/17 00:00 111 H 01/23/17 23:50 113 H 16 01/23/17 23:47 112 H 18 01/23/17 23:40 112 H 01/23/17 23:30 113 H 109 H 16 01/23/17 23:27 106 H 01/23/17 23:26 100.1 F H 01/23/17 23:20 109 H 18 01/23/17 23:10 107 H 18 01/23/17 23:00 104 H 18 01/23/17 22:50 113 H 16 01/23/17 22:40 115 H 19 01/23/17 22:30 115 H 20 01/23/17 22:20 121 H 18 01/23/17 22:10 111 H 19 01/23/17 22:00 115 H 19 01/23/17 21:50 116 H 19 01/23/17 21:40 117 H 18 01/23/17 21:36 119 H 19 01/23/17 21:30 120 H 19 01/23/17 21:20 123 H 20 01/23/17 21:10 117 H 19 01/23/17 21:09 121 H 19 01/23/17 21:00 122 H 19 01/23/17 20:50 118 H 18 01/23/17 20:40 122 H 18 01/23/17 20:30 122 H 18 01/23/17 20:20 120 H 16 01/23/17 20:10 116 H 16 01/23/17 20:00 99.4 F 122 H 16 01/23/17 19:55 125 H 16 01/23/17 19:51 121 H 18 01/23/17 19:41 124 H 16 01/23/17 19:39 120 H 01/23/17 19:35 122 H 01/23/17 19:30 119 H 18 01/23/17 19:21 122 H 19 01/23/17 19:11 118 H 20 01/23/17 19:00 115 H 19 01/23/17 18:51 123 H 18 01/23/17 18:41 118 H 19 01/23/17 18:30 119 H 18 01/23/17 18:21 122 H 16 01/23/17 18:19 123 H 18 01/23/17 18:11 122 H 20 01/23/17 18:00 126 H 118 H 18 01/23/17 17:51 122 H 18 01/23/17 17:41 123 H 18 01/23/17 17:30 124 H 21 01/23/17 17:21 121 H 19 01/23/17 17:11 122 H 19 01/23/17 17:00 124 H 19 01/23/17 16:52 138 H 01/23/17 16:51 138 H 20 01/23/17 16:41 139 H 22 01/23/17 16:30 136 H 21 01/23/17 16:21 138 H 21 01/23/17 16:11 140 H 22 01/23/17 16:00 141 H 140 H 21 01/23/17 15:51 145 H 25 H 01/23/17 15:41 144 H 22 01/23/17 15:30 137 H 21 01/23/17 15:21 140 H 21 01/23/17 15:11 146 H 21 01/23/17 15:00 155 H 24 01/23/17 14:51 152 H 22 01/23/17 14:41 140 H 19 01/23/17 14:30 133 H 18 01/23/17 14:21 117 H 16 01/23/17 14:11 112 H 16 01/23/17 14:00 119 H 113 H 16 01/23/17 13:53 113 H 16 01/23/17 13:51 112 H 16 01/23/17 13:42 134 H 26 H 01/23/17 13:41 132 H 17 01/23/17 13:31 132 H 26 H 01/23/17 13:21 127 H 23 01/23/17 13:11 128 H 24 01/23/17 13:00 126 H 22 01/23/17 12:51 126 H 21 Resp BP Pulse Ox 01/24/17 12:10 145/88 97 01/24/17 12:00 01/24/17 11:23 148/90 98 01/24/17 08:30 131/89 100 01/24/17 08:20 132/98 97 01/24/17 08:15 132/98 97 01/24/17 08:10 132/98 97 01/24/17 08:00 132/98 98 01/24/17 07:50 139/69 97 01/24/17 07:40 139/69 98 01/24/17 07:30 139/69 98 01/24/17 07:20 136/77 98 01/24/17 07:10 136/77 98 01/24/17 07:00 136/77 98 01/24/17 06:50 116/86 99 01/24/17 06:40 116/86 99 01/24/17 06:30 116/86 97 01/24/17 06:20 129/79 96 01/24/17 06:10 129/79 99 01/24/17 06:00 129/79 99 01/24/17 05:50 141/83 99 01/24/17 05:40 141/83 100 01/24/17 05:30 141/83 100 01/24/17 05:20 135/84 100 01/24/17 05:10 134/84 100 01/24/17 05:00 134/84 100 01/24/17 04:50 134/86 100 01/24/17 04:40 134/86 99 01/24/17 04:30 134/86 95 01/24/17 04:20 134/84 97 01/24/17 04:10 120/76 97 01/24/17 04:00 120/76 96 01/24/17 03:50 126/76 98 01/24/17 03:41 122/74 97 01/24/17 03:40 122/74 97 01/24/17 03:36 01/24/17 03:30 139/81 98 01/24/17 03:20 139/81 98 01/24/17 03:10 132/87 99 01/24/17 03:00 132/87 01/24/17 02:50 134/83 98 01/24/17 02:40 122/92 99 01/24/17 02:30 122/92 97 01/24/17 02:20 133/91 99 01/24/17 02:10 134/83 98 01/24/17 02:00 134/83 97 01/24/17 01:50 134/82 98 01/24/17 01:40 138/76 98 01/24/17 01:30 138/76 97 01/24/17 01:20 136/78 98 01/24/17 01:10 123/78 98 01/24/17 01:00 123/78 97 01/24/17 00:50 135/80 98 01/24/17 00:40 131/78 99 01/24/17 00:30 131/78 97 01/24/17 00:20 135/80 99 01/24/17 00:10 128/80 98 01/24/17 00:00 128/80 98 01/23/17 23:50 136/82 98 01/23/17 23:47 01/23/17 23:40 145/82 96 01/23/17 23:30 145/82 93 01/23/17 23:27 138/80 99 01/23/17 23:26 01/23/17 23:20 138/80 98 01/23/17 23:10 130/79 99 01/23/17 23:00 130/79 100 01/23/17 22:50 127/71 99 01/23/17 22:40 129/69 98 01/23/17 22:30 129/69 96 01/23/17 22:20 136/75 97 01/23/17 22:10 129/80 98 01/23/17 22:00 129/80 96 01/23/17 21:50 133/77 99 01/23/17 21:40 130/77 98 01/23/17 21:36 130/77 98 01/23/17 21:30 130/77 97 01/23/17 21:20 122/78 98 01/23/17 21:10 138/75 99 01/23/17 21:09 138/75 98 01/23/17 21:00 138/75 97 01/23/17 20:50 131/81 100 01/23/17 20:40 141/72 100 01/23/17 20:30 141/72 99 01/23/17 20:20 123/78 100 01/23/17 20:10 141/80 99 01/23/17 20:00 135/82 97 01/23/17 19:55 99 01/23/17 19:51 01/23/17 19:41 138/84 97 01/23/17 19:39 18 01/23/17 19:35 119/75 98 01/23/17 19:30 138/84 97 01/23/17 19:21 119/75 98 01/23/17 19:11 134/80 97 01/23/17 19:00 134/80 96 01/23/17 18:51 142/84 97 01/23/17 18:41 132/86 98 01/23/17 18:30 132/86 01/23/17 18:21 137/87 98 01/23/17 18:19 01/23/17 18:11 135/82 98 01/23/17 18:00 135/82 95 01/23/17 17:51 119/71 96 01/23/17 17:41 126/69 96 01/23/17 17:30 126/69 94 01/23/17 17:21 127/70 96 01/23/17 17:11 126/77 96 01/23/17 17:00 126/77 93 01/23/17 16:52 136/80 97 01/23/17 16:51 136/80 97 01/23/17 16:41 124/75 97 01/23/17 16:30 124/75 94 01/23/17 16:21 137/73 96 01/23/17 16:11 137/73 97 01/23/17 16:00 137/73 94 01/23/17 15:51 137/75 96 01/23/17 15:41 138/79 98 01/23/17 15:30 138/79 95 01/23/17 15:21 130/81 98 01/23/17 15:11 150/80 99 01/23/17 15:00 150/80 97 01/23/17 14:51 138/78 100 01/23/17 14:41 133/82 100 01/23/17 14:30 133/82 94 01/23/17 14:21 139/75 98 01/23/17 14:11 126/80 98 01/23/17 14:00 126/80 95 01/23/17 13:53 01/23/17 13:51 139/81 98 01/23/17 13:42 01/23/17 13:41 127/79 98 01/23/17 13:31 127/79 96 01/23/17 13:21 150/90 98 01/23/17 13:11 153/88 98 01/23/17 13:00 153/88 96 01/23/17 12:51 148/90 98 - Physical Examination General: Other (In) HEENT: Positive: Other (Pupils - not responding to painful stimuli.) Neck: Positive: neck supple. Negative: JVD/HJR Cardiac: Positive: Reg Rate and Rhythm, Tachycardia Lungs: Positive: No Wheeze, Rales, Rhonchi Neuro: Positive: Other (Comatose) Abdomen: Positive: Soft Extremities: Present: normal. Absent: edema - Labs and Meds Cardiac Enzymes 01/23/17 Range/Units 12:27 CK-MB (CK-2) 9.2 H (0.0-4.0) ng/mL CBC 01/24/17 Range/Units 03:38 WBC 24.7 H (4.5-11.0) K/mm3 RBC 4.52 (3.65-5.03) M/mm3 Hgb 13.6 (11.8-15.2) gm/dl Hct 40.5 (35.5-45.6) % Plt Count 45 L (140-440) K/mm3 Comprehensive Metabolic Panel 01/24/17 Range/Units 03:38 Sodium 136 L D (137-145) mmol/L Potassium 4.3 (3.6-5.0) mmol/L Chloride 97.3 L (98-107) mmol/L Carbon Dioxide 25 (22-30) mmol/L BUN 12 (9-20) mg/dL Creatinine 0.7 L (0.8-1.5) mg/dL Glucose 197 H (75-100) mg/dL Calcium 8.6 (8.4-10.2) mg/dL - Imaging and Cardiology EKG: report reviewed, image reviewed - Telemetry EKG Rhythm: Sinus Tachycardia - EKG Sinus rhythms and dysrhythmias: sinus tachycardia
[2017-01-24] MEDS: KEPPRA 500 MG in D5W 100 ML IV SCH ×2 (13:05→22:20)
[2017-01-24] MEDS ORDERED: ZOSYN/NS 4.5GM/100ML 4.5 GM/100 ML VIAL IV SCH (14:00)
--- NOTE | 2017-01-24 15:54 | Admit Criteria Form ---
Admission Criteria Documentation: RESPIRATORY FAILURE GRG Clinical Indications for Admission to Inpatient Care (Place 'X' for any and all applicable criteria): Hospital admission is needed for appropriate care of the patient because of acute respiratory failure or insufficiency as indicated by ANY ONE of the following(1)(2)(3)(4)(5)(6)(7)(8): [X ]I. Mechanical ventilation needed (acute invasive or noninvasive) [ ]II. Severe ventilation deficit as indicated by ANY ONE of the following (9) [ ]a) Respiratory acidosis (pH less than 7.32 and partial pressure of carbon dioxide greater than 40 mm Hg (5.3 kPa)) [ ]b) Partial pressure of carbon dioxide greater than 44 mm Hg (5.9 kPa ) (new) [ ]c) Airflow measurements less than 25% of predicted (eg, peak expiratory flow rate less than 100 L/minute) [ ]d) Forced vital capacity less than 15 mL/kg of ideal body weight, or 50% decrease in vital capacity from baseline [ ]III. Noncardiac pulmonary edema not resolving with rapid emergency treatment (8) [ ]IV. Severe respiratory distress as indicated by ANY ONE of the following: [ ]a) Severe tachypnea (respiratory rate greater than 30, greater than 45 for 6-month-old, greater than 60 for ) [ ]b) Severe hypoxemia (partial pressure of oxygen less than 50 mm Hg ( 6.7 kPa) on greater than 50% oxygen or partial pressure of oxygen to FIO2 ratio less than 200) [ ]c) Mental status deterioration from respiratory disease [ ]V. Airway obstruction or inadequate protection [A](10)(11) The original [employer] content created by [employer] has been revised. The portions of the content which have been revised are identified through the use of italic text or in bold, and [employer] has neither reviewed nor approved the modified material. All other unmodified content is copyright [employer]. Please see references footnoted in the original [employer] edition 2016 Admission Criteria Met: Yes
[2017-01-24] MEDS: DIPRIVAN 10 MG/ML 1,000 MG/100 ML BOTTLE IV SCH (18:33)
[2017-01-24] MEDS: ATIVAN IV PRN ×2 (20:10→20:45)
[2017-01-24] MEDS ORDERED: ATIVAN IM PRN (20:21)
[2017-01-25] MEDS: XOPENEX IH SCH ×3 (00:37→16:18)
[2017-01-25 05:29] LABS: ISTAT Base Excess 6; ISTAT HCO3 30.3; ISTAT PCO2 46.7 (35-45); ISTAT PO2 90 (80-105); ISTAT SO2 97; ISTAT TCO2 32
[2017-01-25 08:00] LABS: Alanine Aminotransferase 26 units/L (7-56); Alkaline Phosphatase 64 units/L (35-129); Anion Gap 19 mmol/L; BUN/Creatinine Ratio 25.71; Blood Urea Nitrogen 18 mg/dL (9-20); Calcium 9.1 mg/dL (8.4-10.2); Carbon Dioxide 27 mmol/L (22-30); Chloride 98.4 mmol/L (98-107); Glucose 180 mg/dL (75-100); Potassium 4.7 mmol/L (3.6-5.0); Sodium 140 mmol/L (137-145); Total Protein 7.9 g/dL (6.3-8.2)
--- NOTE | 2017-01-25 08:29 | XRay Report ---
AP chest x-ray. History: Followup respiratory failure. Findings: The heart and lungs are within normal limits. The endotracheal tube is in satisfactory position.
[2017-01-25 08:37] LABS: Hematocrit 45.3 % (35.5-45.6); Hemoglobin 14.8 gm/dl (11.8-15.2); Mean Corpuscular HGB Conc 33 % (32-34); Mean Corpuscular Hemoglobin 29 pg (28-32); Mean Corpuscular Volume 90 fl (84-94); Red Blood Count 5.03 M/mm3 (3.65-5.03); Red Cell Distribution Width 14.2 % (13.2-15.2)
[2017-01-25 08:43] LABS: White Blood Count 34.5 K/mm3 (4.5-11.0)
[2017-01-25] MEDS: PULMICORT IH SCH ×2 (08:55→19:53)
[2017-01-25] MEDS: BROVANA NEBU IH SCH ×2 (08:55→19:53)
--- NOTE | 2017-01-25 09:14 | Progress Note ---
Assessment and Plan 36 y/o male with acute respiratory failure, thought secondary to asthma exacerbation. 1. Continue roids at 60q6, still wheezing this am. 2. Continue Pulmicort and brovana 3. continue scheduled short acting nebs 4. Will obtain EEG off sedation. Appreciate neuro assistance 5. DVT and GI prophylaxis 6. Feed patient, continue 7. Need to obtain a peripheral smear and consider heme consult for low platelets. CCT 31 minutes. Subjective Date of service: 01/25/17 Interval history: No acute events. EEG not done yet. Off propofol now. Eyes open but not following commands. No family at bedside. Platelets pending this am. Objective Vital Signs - 12hr 01/24/17 01/24/17 01/24/17 21:30 22:00 22:30 Temperature Pulse Rate 98 H 123 H 123 H Pulse Rate [ Anterior Bilateral Throughout] Pulse Rate [ Anterior Throughout] Pulse Rate [ From Monitor] Respiratory 18 18 23 Rate Respiratory Rate [Anterior Bilateral Throughout] Respiratory Rate [Anterior Throughout] Blood Pressure 120/71 126/84 129/75 O2 Sat by Pulse 97 97 97 Oximetry 01/24/17 01/24/17 01/24/17 23:00 23:04 23:30 Temperature Pulse Rate 109 H 115 H 105 H Pulse Rate [ Anterior Bilateral Throughout] Pulse Rate [ Anterior Throughout] Pulse Rate [ From Monitor] Respiratory 22 21 19 Rate Respiratory Rate [Anterior Bilateral Throughout] Respiratory Rate [Anterior Throughout] Blood Pressure 137/81 137/81 120/78 O2 Sat by Pulse 97 96 96 Oximetry 01/24/17 01/25/17 01/25/17 23:51 00:00 00:30 Temperature 100.8 F H Pulse Rate 114 H 113 H Pulse Rate [ 115 H Anterior Bilateral Throughout] Pulse Rate [ Anterior Throughout] Pulse Rate [ 107 H From Monitor] Respiratory 22 16 Rate Respiratory 17 Rate [Anterior Bilateral Throughout] Respiratory Rate [Anterior Throughout] Blood Pressure 124/84 116/79 O2 Sat by Pulse 96 97 Oximetry 01/25/17 01/25/17 01/25/17 00:41 00:44 01:00 Temperature Pulse Rate 113 H 115 H Pulse Rate [ 109 H Anterior Bilateral Throughout] Pulse Rate [ Anterior Throughout] Pulse Rate [ From Monitor] Respiratory 22 Rate Respiratory 14 Rate [Anterior Bilateral Throughout] Respiratory Rate [Anterior Throughout] Blood Pressure 116/79 116/79 O2 Sat by Pulse 96 99 Oximetry 01/25/17 01/25/17 01/25/17 01:30 02:00 02:30 Temperature Pulse Rate 112 H 116 H 117 H Pulse Rate [ Anterior Bilateral Throughout] Pulse Rate [ Anterior Throughout] Pulse Rate [ From Monitor] Respiratory 21 22 24 Rate Respiratory Rate [Anterior Bilateral Throughout] Respiratory Rate [Anterior Throughout] Blood Pressure 122/79 112/88 119/89 O2 Sat by Pulse 97 97 96 Oximetry 01/25/17 01/25/17 01/25/17 03:00 03:25 03:30 Temperature Pulse Rate 110 H 82 90 Pulse Rate [ Anterior Bilateral Throughout] Pulse Rate [ Anterior Throughout] Pulse Rate [ From Monitor] Respiratory 21 18 Rate Respiratory Rate [Anterior Bilateral Throughout] Respiratory Rate [Anterior Throughout] Blood Pressure 126/84 126/84 120/67 O2 Sat by Pulse 97 97 98 Oximetry 01/25/17 01/25/17 01/25/17 04:00 04:30 05:00 Temperature 100.8 F H Pulse Rate 99 H 109 H 103 H Pulse Rate [ Anterior Bilateral Throughout] Pulse Rate [ Anterior Throughout] Pulse Rate [ From Monitor] Respiratory 15 24 22 Rate Respiratory Rate [Anterior Bilateral Throughout] Respiratory Rate [Anterior Throughout] Blood Pressure 125/78 143/89 136/83 O2 Sat by Pulse 98 98 99 Oximetry 01/25/17 01/25/17 01/25/17 05:30 06:00 06:30 Temperature Pulse Rate 109 H 103 H 106 H Pulse Rate [ Anterior Bilateral Throughout] Pulse Rate [ Anterior Throughout] Pulse Rate [ From Monitor] Respiratory 19 18 19 Rate Respiratory Rate [Anterior Bilateral Throughout] Respiratory Rate [Anterior Throughout] Blood Pressure 133/69 123/80 117/90 O2 Sat by Pulse 95 96 96 Oximetry 01/25/17 01/25/17 01/25/17 07:00 07:30 08:00 Temperature 98.3 F Pulse Rate 102 H 88 93 H Pulse Rate [ Anterior Bilateral Throughout] Pulse Rate [ Anterior Throughout] Pulse Rate [ From Monitor] Respiratory 21 17 17 Rate Respiratory Rate [Anterior Bilateral Throughout] Respiratory Rate [Anterior Throughout] Blood Pressure 130/77 109/66 107/64 O2 Sat by Pulse 97 96 97 Oximetry 01/25/17 01/25/17 08:52 08:56 Temperature Pulse Rate 112 H Pulse Rate [ Anterior Bilateral Throughout] Pulse Rate [ 112 H Anterior Throughout] Pulse Rate [ From Monitor] Respiratory Rate Respiratory Rate [Anterior Bilateral Throughout] Respiratory 21 Rate [Anterior Throughout] Blood Pressure 118/69 O2 Sat by Pulse 97 Oximetry Constitutional: no acute distress, comatose (secondary to medications) Eyes: non-icteric ENT: other (orally intubated sedated) Neck: supple Effort: mildly labored Ascultation: Bilateral: clear Percussion: Bilateral: not dull Cardiovascular: regular rate and rhythm (but sinus tach) Gastrointestinal: normoactive bowel sounds, soft, non-distended Integumentary: normal Extremities: no cyanosis, no edema, pink and warm, pulses normal CBC and BMP: 01/25/17 05:37 01/25/17 05:37 ABG, PT/INR, D-dimer: ABG POC ABG pH 7.420 (7.35-7.45) 01/25/17 04:36 POC ABG pCO2 46.7 (35-45) H 01/25/17 04:36 POC ABG pO2 90 (80-105) 01/25/17 04:36 POC ABG HCO3 30.3 01/25/17 04:36 POC ABG Total CO2 32 01/25/17 04:36 POC ABG O2 Sat 97 01/25/17 04:36 PT/INR, D-dimer PT 13.5 Sec. (12.2-14.9) 01/23/17 04:22 INR 0.98 (0.87-1.13) 01/23/17 04:22 D-Dimer 204.60 ng/mlDDU (0-234) 01/23/17 Unknown Abnormal lab findings: Abnormal Labs 01/23/17 01/23/17 01/23/17 07:37 10:24 12:27 WBC Plt Count Seg Neuts % (Manual) Lymphocytes % (Manual) Seg Neutrophils # Man Monocytes # (Manual) POC ABG pH POC ABG pCO2 Sodium Chloride Creatinine Glucose POC Glucose Lactic Acid Phosphorus Magnesium 3.30 H Total Creatine Kinase 503 H 523 H CK-MB (CK-2) 6.9 H 9.2 H 01/23/17 01/23/17 01/23/17 12:27 16:50 21:21 WBC Plt Count Seg Neuts % (Manual) Lymphocytes % (Manual) Seg Neutrophils # Man Monocytes # (Manual) POC ABG pH POC ABG pCO2 Sodium Chloride Creatinine Glucose POC Glucose 166 H 158 H Lactic Acid Phosphorus 1.30 L Magnesium Total Creatine Kinase CK-MB (CK-2) 01/24/17 01/24/17 01/24/17 01:49 03:38 03:38 WBC 24.7 H Plt Count 45 L Seg Neuts % (Manual) 77.0 H Lymphocytes % (Manual) 6.0 L Seg Neutrophils # Man 19.0 H Monocytes # (Manual) 1.5 H POC ABG pH POC ABG pCO2 Sodium 136 L D Chloride 97.3 L Creatinine 0.7 L Glucose 197 H POC Glucose 183 H Lactic Acid Phosphorus Magnesium Total Creatine Kinase CK-MB (CK-2) 01/24/17 01/24/17 01/24/17 04:46 05:04 09:00 WBC Plt Count Seg Neuts % (Manual) Lymphocytes % (Manual) Seg Neutrophils # Man Monocytes # (Manual) POC ABG pH 7.472 H POC ABG pCO2 Sodium Chloride Creatinine Glucose POC Glucose 193 H 220 H Lactic Acid Phosphorus Magnesium Total Creatine Kinase CK-MB (CK-2) 01/24/17 01/24/17 01/24/17 12:26 14:07 18:00 WBC Plt Count Seg Neuts % (Manual) Lymphocytes % (Manual) Seg Neutrophils # Man Monocytes # (Manual) POC ABG pH POC ABG pCO2 Sodium Chloride Creatinine Glucose POC Glucose 194 H 163 H Lactic Acid 2.30 H* Phosphorus Magnesium Total Creatine Kinase CK-MB (CK-2) 01/24/17 01/25/17 01/25/17 22:39 02:20 04:36 WBC Plt Count Seg Neuts % (Manual) Lymphocytes % (Manual) Seg Neutrophils # Man Monocytes # (Manual) POC ABG pH POC ABG pCO2 46.7 H Sodium Chloride Creatinine Glucose POC Glucose 215 H 194 H Lactic Acid Phosphorus Magnesium Total Creatine Kinase CK-MB (CK-2) 01/25/17 01/25/17 01/25/17 05:37 05:37 06:03 WBC 34.5 H Plt Count Seg Neuts % (Manual) Lymphocytes % (Manual) Seg Neutrophils # Man Monocytes # (Manual) POC ABG pH POC ABG pCO2 Sodium Chloride Creatinine 0.7 L Glucose 180 H POC Glucose 172 H Lactic Acid Phosphorus Magnesium Total Creatine Kinase CK-MB (CK-2)
[2017-01-25] MEDS: PEPCID PO SCH ×2 (10:08→22:58)
[2017-01-25] MEDS: VITAMIN B-1 PO SCH (10:08)
[2017-01-25] MEDS: FOLVITE PO SCH (10:08)
[2017-01-25] MEDS: KEPPRA 500 MG in D5W 100 ML IV SCH ×2 (10:15→22:58)
--- NOTE | 2017-01-25 10:56 | Progress Note ---
Assessment and Plan Assessment: S/p Cardiorespiratory arrest - Leonid negative for AMI; ECG with no ischemic changes; EF 55-60%. Acute respiratory failure / Status asthmaticus - intubated Encephalopathy - head CT without definite acute intracranial abnormality. Leukocytosis / ? sepsis Sinus Tachycardia Transient atrial flutter - remains ST on tele; CHADS score 0. Myoclonus - EEG pending. Thrombocytopenia - improved this AM. Mild - moderate TR Plan: To continue present management. Avoid beta-blockers in setting of asthma. Possible anoxic encephalopathy. Prognosis is guarded. No family at bedside. The patient has been seen in conjunction with Dr. Barajas who agrees with the assessment and plan of care. Subjective Date of service: 01/25/17 Principal diagnosis: s/p cardiopulmonary arrest Interval history: Pt resting in bed, remains intubated, propofol currently held, muscular twitching noted, eyes open but not following commands. In ST on tele with BPs stable. Objective Last Vital Signs Temp 98.3 F 01/25/17 08:00 Pulse 105 H 01/25/17 10:30 Resp 21 01/25/17 10:30 BP 142/88 01/25/17 10:30 Pulse Ox 95 01/25/17 10:30 - Physical Examination General: Other (inbuated) Neck: Positive: neck supple. Negative: JVD/HJR Lungs: Positive: Rhonchi, Oxygen, Ventilated Respirations Neuro: Positive: Other (Comatose) Abdomen: Positive: Soft Extremities: Present: normal. Absent: edema - Labs and Meds Cardiac Enzymes 01/25/17 Range/Units 05:37 AST 14 (5-40) units/L CBC 01/25/17 Range/Units 05:37 WBC 34.5 H (4.5-11.0) K/mm3 RBC 5.03 (3.65-5.03) M/mm3 Hgb 14.8 (11.8-15.2) gm/dl Hct 45.3 (35.5-45.6) % Comprehensive Metabolic Panel 01/25/17 Range/Units 05:37 Sodium 140 (137-145) mmol/L Potassium 4.7 (3.6-5.0) mmol/L Chloride 98.4 (98-107) mmol/L Carbon Dioxide 27 (22-30) mmol/L BUN 18 (9-20) mg/dL Creatinine 0.7 L (0.8-1.5) mg/dL Glucose 180 H (75-100) mg/dL Calcium 9.1 (8.4-10.2) mg/dL AST 14 (5-40) units/L ALT 26 (7-56) units/L Alkaline Phosphatase 64 (35-129) units/L Total Protein 7.9 (6.3-8.2) g/dL Albumin 4.0 (3.9-5) g/dL - Imaging and Cardiology EKG: report reviewed, image reviewed Echo: report reviewed - Telemetry EKG Rhythm: Sinus Tachycardia - EKG Sinus rhythms and dysrhythmias: sinus tachycardia
[2017-01-25 11:06] LABS: Platelet Count 264 K/mm3 (140-440)
[2017-01-25] MEDS: DIPRIVAN 10 MG/ML 1,000 MG/100 ML BOTTLE IV SCH ×2 (11:27→18:35)
--- NOTE | 2017-01-25 11:39 | Progress Note ---
Assessment and Plan Assessment and plan: Cardio-respiratory arrest. Patient collapsed as soon as he walked into ED. Donta asif was called and he was resuscitated, intubated. Patient currently remains intubated and sedated. Pulm following Acute asthma exacerbation. Continue IV solu-medrol, Duoneb, Pulmicort and Brovana Acute respiratory failure due to asthma exacerbation. Cont vent management Encephalopathy. Etiology may be anoxic. EEG off sedation. Sepsis. Present on admission. Patient with fever and significant leukocytosis. Continue IV antibiotics and follow cultures. Thrombocytopenia. Await old records from [facility]. Consider hematology consultation. DVT prophylaxis with SCDs only. Not on heparin/Lovenox because of thrombocytopenia Full code status History Interval history: No new issues overnight. Hospitalist Physical - Constitutional Vitals: Temp Pulse Resp BP Pulse Ox 98.3 F 105 H 21 142/88 95 01/25/17 08:00 01/25/17 10:30 01/25/17 10:30 01/25/17 10:30 01/25/17 10:30 General appearance: Present: other (patient is intubated.) - EENT Eyes: Present: PERRL, EOM intact ENT: hearing intact, clear oral mucosa, dentition normal - Neck Neck: Present: supple, normal ROM - Respiratory Respiratory effort: normal Respiratory: bilateral: diminished, rhonchi - Cardiovascular Rhythm: regular Heart Sounds: Present: S1 & S2. Absent: gallop, rub - Extremities Extremities: no ischemia, No edema, Full ROM - Abdominal General gastrointestinal: soft, non-tender, non-distended, normal bowel sounds - Integumentary Integumentary: Present: clear, warm, dry - Neurologic Neurologic: CNII-XII intact, moves all extremities Results - Labs CBC & Chem 7: 01/25/17 05:37 01/25/17 05:37 Labs: Laboratory Last Values WBC 34.5 K/mm3 (4.5-11.0) H 01/25/17 05:37 RBC 5.03 M/mm3 (3.65-5.03) 01/25/17 05:37 Hgb 14.8 gm/dl (11.8-15.2) 01/25/17 05:37 Hct 45.3 % (35.5-45.6) 01/25/17 05:37 MCV 90 fl (84-94) 01/25/17 05:37 MCH 29 pg (28-32) 01/25/17 05:37 MCHC 33 % (32-34) 01/25/17 05:37 RDW 14.2 % (13.2-15.2) 01/25/17 05:37 Plt Count 264 K/mm3 (140-440) D 01/25/17 05:37 Lymph # Screener And Blender 01/23/17 04:22 Add Manual Diff Complete 01/24/17 03:38 Total Counted 100 01/24/17 03:38 Seg Neutrophils % Screener And Blender 01/23/17 04:22 Seg Neuts % (Manual) 77.0 % (40.0-70.0) H 01/24/17 03:38 Band Neutrophils % 11.0 % 01/24/17 03:38 Lymphocytes % (Manual) 6.0 % (13.4-35.0) L 01/24/17 03:38 Reactive Lymphs % (Man) 0 % 01/24/17 03:38 Monocytes % (Manual) 6.0 % (0.0-7.3) 01/24/17 03:38 Eosinophils % (Manual) 0 % (0.0-4.3) 01/24/17 03:38 Basophils % (Manual) 0 % (0.0-1.8) 01/24/17 03:38 Metamyelocytes % 0 % 01/24/17 03:38 Myelocytes % 0 % 01/24/17 03:38 Promyelocytes % 0 % 01/24/17 03:38 Blast Cells % 0 % 01/24/17 03:38 Nucleated RBC % Not Reportable 01/24/17 03:38 Seg Neutrophils # Man 19.0 K/mm3 (1.8-7.7) H 01/24/17 03:38 Band Neutrophils # 2.7 K/mm3 01/24/17 03:38 Lymphocytes # (Manual) 1.5 K/mm3 (1.2-5.4) 01/24/17 03:38 Abs React Lymphs (Man) 0.0 K/mm3 01/24/17 03:38 Monocytes # (Manual) 1.5 K/mm3 (0.0-0.8) H 01/24/17 03:38 Eosinophils # (Manual) 0.0 K/mm3 (0.0-0.4) 01/24/17 03:38 Basophils # (Manual) 0.0 K/mm3 (0.0-0.1) 01/24/17 03:38 Metamyelocytes # 0.0 K/mm3 01/24/17 03:38 Myelocytes # 0.0 K/mm3 01/24/17 03:38 Promyelocytes # 0.0 K/mm3 01/24/17 03:38 Blast Cells # 0.0 K/mm3 01/24/17 03:38 WBC Morphology Not Reportable 01/24/17 03:38 Hypersegmented Neuts Not Reportable 01/24/17 03:38 Hyposegmented Neuts Not Reportable 01/24/17 03:38 Hypogranular Neuts Not Reportable 01/24/17 03:38 Smudge Cells Not Reportable 01/24/17 03:38 Toxic Granulation Not Reportable 01/24/17 03:38 Toxic Vacuolation Not Reportable 01/24/17 03:38 Dohle Bodies Not Reportable 01/24/17 03:38 Pelger-Huet Anomaly Not Reportable 01/24/17 03:38 Noe Rods Not Reportable 01/24/17 03:38 Platelet Estimate Consistent w auto 01/24/17 03:38 Clumped Platelets 1+ 01/24/17 03:38 Plt Clumps, EDTA Not Reportable 01/24/17 03:38 Large Platelets Not Reportable 01/24/17 03:38 Giant Platelets Not Reportable 01/24/17 03:38 Platelet Satelliting Not Reportable 01/24/17 03:38 Plt Morphology Comment Not Reportable 01/24/17 03:38 RBC Morphology Not Reportable 01/24/17 03:38 Dimorphic RBCs Not Reportable 01/24/17 03:38 Polychromasia Not Reportable 01/24/17 03:38 Hypochromasia Not Reportable 01/24/17 03:38 Poikilocytosis Not Reportable 01/24/17 03:38 Anisocytosis 1+ 01/24/17 03:38 Microcytosis Not Reportable 01/24/17 03:38 Macrocytosis Not Reportable 01/24/17 03:38 Spherocytes Not Reportable 01/24/17 03:38 Pappenheimer Bodies Not Reportable 01/24/17 03:38 Sickle Cells Not Reportable 01/24/17 03:38 Target Cells Not Reportable 01/24/17 03:38 Tear Drop Cells Not Reportable 01/24/17 03:38 Ovalocytes Not Reportable 01/24/17 03:38 Helmet Cells Not Reportable 01/24/17 03:38 [place] Bodies Not Reportable 01/24/17 03:38 Cosmos Rings Not Reportable 01/24/17 03:38 [place] Cells Not Reportable 01/24/17 03:38 Bite Cells Not Reportable 01/24/17 03:38 Crenated Cell Not Reportable 01/24/17 03:38 Elliptocytes Not Reportable 01/24/17 03:38 Acanthocytes (Spur) Not Reportable 01/24/17 03:38 Rouleaux Not Reportable 01/24/17 03:38 Hemoglobin C Crystals Not Reportable 01/24/17 03:38 Schistocytes Not Reportable 01/24/17 03:38 Malaria parasites Not Reportable 01/24/17 03:38 [place] Bodies Not Reportable 01/24/17 03:38 Hem Pathologist Commnt No 01/24/17 03:38 PT 13.5 Sec. (12.2-14.9) 01/23/17 04:22 INR 0.98 (0.87-1.13) 01/23/17 04:22 APTT 27.6 Sec. (24.2-36.6) 01/23/17 04:22 D-Dimer 204.60 ng/mlDDU (0-234) 01/23/17 Unknown POC ABG pH 7.420 (7.35-7.45) 01/25/17 04:36 POC ABG pCO2 46.7 (35-45) H 01/25/17 04:36 POC ABG pO2 90 (80-105) 01/25/17 04:36 POC ABG HCO3 30.3 01/25/17 04:36 POC ABG Total CO2 32 01/25/17 04:36 POC ABG O2 Sat 97 01/25/17 04:36 POC ABG Base Excess 6 01/25/17 04:36 FiO2 35 % 01/25/17 04:36 Sodium 140 mmol/L (137-145) 01/25/17 05:37 Potassium 4.7 mmol/L (3.6-5.0) 01/25/17 05:37 Chloride 98.4 mmol/L (98-107) 01/25/17 05:37 Carbon Dioxide 27 mmol/L (22-30) 01/25/17 05:37 Anion Gap 19 mmol/L 01/25/17 05:37 BUN 18 mg/dL (9-20) 01/25/17 05:37 Creatinine 0.7 mg/dL (0.8-1.5) L 01/25/17 05:37 Estimated GFR > 60 ml/min 01/25/17 05:37 BUN/Creatinine Ratio 25.71 % 01/25/17 05:37 Glucose 180 mg/dL (75-100) H 01/25/17 05:37 POC Glucose 177 (70-105) H 01/25/17 09:42 Lactic Acid 1.80 mmol/L (0.7-2.0) 01/24/17 16:08 Calcium 9.1 mg/dL (8.4-10.2) 01/25/17 05:37 Phosphorus 2.60 mg/dL (2.5-4.5) D 01/24/17 07:31 Magnesium 3.30 mg/dL (1.7-2.3) H 01/23/17 10:24 Total Bilirubin 0.80 mg/dL (0.1-1.2) 01/25/17 05:37 AST 14 units/L (5-40) 01/25/17 05:37 ALT 26 units/L (7-56) 01/25/17 05:37 Alkaline Phosphatase 64 units/L (35-129) 01/25/17 05:37 Total Creatine Kinase 523 units/L (55-170) H 01/23/17 12:27 CK-MB (CK-2) 9.2 ng/mL (0.0-4.0) H 01/23/17 12:27 CK-MB (CK-2) Rel Index 1.7 (0-4) 01/23/17 12:27 Troponin T < 0.010 ng/mL (0.00-0.029) 01/23/17 12:27 NT-Pro-B Natriuret Pep 22.36 pg/mL (0-450) 01/23/17 04:23 Total Protein 7.9 g/dL (6.3-8.2) 01/25/17 05:37 Albumin 4.0 g/dL (3.9-5) 01/25/17 05:37 Albumin/Globulin Ratio 1.0 % 01/25/17 05:37 Urine Color Yellow (Yellow) 01/23/17 Unknown Urine Turbidity Clear (Clear) 01/23/17 Unknown Urine pH 5.0 (5.0-7.0) 01/23/17 Unknown Ur Specific [place] 1.018 (1.003-1.030) 01/23/17 Unknown Urine Protein <15 mg/dl mg/dL (Negative) 01/23/17 Unknown Urine Glucose (UA) Neg mg/dL (Negative) 01/23/17 Unknown Urine Ketones Neg mg/dL (Negative) 01/23/17 Unknown Urine Blood Neg (Negative) 01/23/17 Unknown Urine Nitrite Neg (Negative) 01/23/17 Unknown Urine Bilirubin Neg (Negative) 01/23/17 Unknown Urine Urobilinogen < 2.0 mg/dL (<2.0) 01/23/17 Unknown Ur Leukocyte Esterase Neg (Negative) 01/23/17 Unknown Urine WBC (Auto) 2.0 /HPF (0.0-6.0) 01/23/17 Unknown Urine RBC (Auto) 1.0 /HPF (0.0-6.0) 01/23/17 Unknown Urine Mucus Few /HPF 01/23/17 Unknown Urine Sperm 2+ /HPF (SHIPPING LEAD PERSON) 01/23/17 Unknown Urine Opiates Screen Presumptive positive 01/23/17 Unknown Urine Methadone Screen Presumptive negative 01/23/17 Unknown Ur Barbiturates Screen Presumptive positive 01/23/17 Unknown Ur Phencyclidine Scrn Presumptive negative 01/23/17 Unknown Ur Amphetamines Screen Presumptive negative 01/23/17 Unknown U Benzodiazepines Scrn Presumptive positive 01/23/17 Unknown Urine Cocaine Screen Presumptive negative 01/23/17 Unknown U Marijuana (THC) Screen Presumptive negative 01/23/17 Unknown Drugs of Abuse Note Disclamer 01/23/17 Unknown Blood Type O POSITIVE 01/24/17 11:15 Antibody Screen TNR 01/24/17 11:15 HENRY Antibody Screen Negative 01/24/17 11:15
--- NOTE | 2017-01-25 12:21 | XRay Report ---
Single view abdomen: History: Vomiting. Findings: Distended stomach and proximal small bowel with air. Tip of NG tube in stomach. Radiopaque density overlying right upper lumbar area and pelvis. No radiopaque calculus or abnormal calcification. Impression: Early incomplete small bowel obstruction or early ileus.
--- NOTE | 2017-01-25 12:42 | Electroencephalogram Report ---
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 Impression: Abnormal awake and drowsy 20 minute routine EEG. There are findings to suggest moderate nonspecific diffuse cerebral dysfunction. There are no findings to suggest cortical irritability, epileptiform discharges or electrographic seizures. Description: The waking background shows a continuous inappropriate organization with poorly- defined anterior posterior voltage and frequency gradients. Posteriorly, there is a poorly-developed mixed theta, non posterior dominant alpha and delta frequency background which is symmetrical with some ? reactivity. There is no variability. There are no features of sleep. Throughout, the recording there are no epileptiform abnormalities, focal or lateralizing features, or significant interhemispheric findings. Interpretation: This is a digitally acquired 21-channel electroencephalogram. Both bipolar and referential montages were used in interpretation. Electrodes were placed in accordance with the International 10-20 system.
[2017-01-25] MEDS ORDERED: VERSED IV ONE ×2 (13:00→15:00)
[2017-01-25] MEDS ORDERED: HALDOL IV ONE (13:00)
[2017-01-25] MEDS ORDERED: SUBLIMAZE IV ONE ×2 (13:00→15:00)
[2017-01-25] MEDS ORDERED: BENADRYL IV ONE (14:26)
[2017-01-25] MEDS ORDERED: MIDAZOLAM 100 MG in NACL 0.9% 80 ML IV SCH (15:00)
[2017-01-26] MEDS: XOPENEX IH SCH ×2 (00:27→07:55)
[2017-01-26] MEDS: DIPRIVAN 10 MG/ML 1,000 MG/100 ML BOTTLE IV SCH (00:58)
[2017-01-26] MEDS: ZOFRAN IV PRN (05:09)
[2017-01-26 06:16] LABS: Hematocrit 44.5 % (35.5-45.6); Hemoglobin 14.9 gm/dl (11.8-15.2); Mean Corpuscular HGB Conc 34 % (32-34); Mean Corpuscular Hemoglobin 30 pg (28-32); Mean Corpuscular Volume 89 fl (84-94); Red Blood Count 4.99 M/mm3 (3.65-5.03)
[2017-01-26 06:35] LABS: White Blood Count 30.6 K/mm3 (4.5-11.0)
[2017-01-26 06:41] LABS: ISTAT Base Excess 10; ISTAT HCO3 33.5; ISTAT PCO2 45.8 (35-45); ISTAT PH 7.472 (7.35-7.45); ISTAT PO2 82 (80-105); ISTAT SO2 97; ISTAT TCO2 35
[2017-01-26 07:11] LABS: Anion Gap 22 mmol/L; Blood Urea Nitrogen 28 mg/dL (9-20); Calcium 8.7 mg/dL (8.4-10.2); Carbon Dioxide 23 mmol/L (22-30); Chloride 100.9 mmol/L (98-107); Glucose 187 mg/dL (75-100); Potassium 4.6 mmol/L (3.6-5.0); Sodium 141 mmol/L (137-145)
[2017-01-26 07:18] LABS: Basophils % (Manual) 0 % (0.0-1.8); Blastocytes % (Manual) 0 %; Eosinophils % (Manual) 0 % (0.0-4.3)
[2017-01-26 07:19] LABS: Diff Status Complete; Platelet Clumps 3+
[2017-01-26] MEDS: PULMICORT IH SCH ×2 (07:56→20:33)
[2017-01-26] MEDS: BROVANA NEBU IH SCH ×2 (07:56→20:33)
--- NOTE | 2017-01-26 08:24 | Progress Note ---
Assessment and Plan 36 y/o male with acute respiratory failure, thought secondary to asthma exacerbation. 1. Continue roids at 60q6. Will drop to q12 tomorrow. 2. Continue Pulmicort and brovana 3. continue scheduled short acting nebs 4. Follow up new Neuro recs today. Will start to wean off sedative and attempt to control with PRN pushes 5. DVT and GI prophylaxis 6. Holding Feeds right now. Had projectile vomiting on yesterday. KUB consistent with incomplete vs small bowel obstruction vs ileus. Will repeat KUB today. 7. Ordered smear. yesterday platelets came back at 234? Today not reportable. Will follow up. Still may need heme consult. CCT 31 minutes. Subjective Date of service: 01/26/17 Principal diagnosis: s/p cardiopulmonary arrest Interval history: Agitated last night and yesterday afternoon. Required additional sedation and a second drip. EEG done off sedation showing no seizure activity. No family currently at bedside. Objective Vital Signs - 12hr 01/25/17 01/25/17 01/25/17 20:30 21:00 21:30 Temperature Pulse Rate 89 89 91 H Pulse Rate [ Anterior Bilateral Throughout] Pulse Rate [ Anterior Right Upper Lobe] Respiratory 16 16 16 Rate Respiratory Rate [Anterior Bilateral Throughout] Respiratory Rate [Anterior Right Upper Lobe] Blood Pressure 126/84 131/83 130/85 O2 Sat by Pulse 96 95 97 Oximetry 01/25/17 01/25/17 01/25/17 21:37 22:00 22:30 Temperature Pulse Rate 86 89 88 Pulse Rate [ Anterior Bilateral Throughout] Pulse Rate [ Anterior Right Upper Lobe] Respiratory 16 16 16 Rate Respiratory Rate [Anterior Bilateral Throughout] Respiratory Rate [Anterior Right Upper Lobe] Blood Pressure 130/85 133/85 135/85 O2 Sat by Pulse 96 97 97 Oximetry 01/25/17 01/25/17 01/26/17 23:00 23:30 00:00 Temperature 99.6 F Pulse Rate 89 91 H 92 H Pulse Rate [ Anterior Bilateral Throughout] Pulse Rate [ Anterior Right Upper Lobe] Respiratory 17 16 23 Rate Respiratory Rate [Anterior Bilateral Throughout] Respiratory Rate [Anterior Right Upper Lobe] Blood Pressure 125/88 130/86 141/94 O2 Sat by Pulse 97 95 Oximetry 01/26/17 01/26/17 01/26/17 00:20 00:30 00:31 Temperature Pulse Rate 89 Pulse Rate [ 89 91 H Anterior Bilateral Throughout] Pulse Rate [ Anterior Right Upper Lobe] Respiratory 16 Rate Respiratory 16 16 Rate [Anterior Bilateral Throughout] Respiratory Rate [Anterior Right Upper Lobe] Blood Pressure 126/86 O2 Sat by Pulse 93 Oximetry 01/26/17 01/26/17 01/26/17 00:33 01:00 01:30 Temperature Pulse Rate 88 92 H 93 H Pulse Rate [ Anterior Bilateral Throughout] Pulse Rate [ Anterior Right Upper Lobe] Respiratory 16 16 Rate Respiratory Rate [Anterior Bilateral Throughout] Respiratory Rate [Anterior Right Upper Lobe] Blood Pressure 135/85 129/87 130/89 O2 Sat by Pulse 94 92 Oximetry 01/26/17 01/26/17 01/26/17 02:00 02:30 03:00 Temperature Pulse Rate 96 H 94 H 89 Pulse Rate [ Anterior Bilateral Throughout] Pulse Rate [ Anterior Right Upper Lobe] Respiratory 16 18 17 Rate Respiratory Rate [Anterior Bilateral Throughout] Respiratory Rate [Anterior Right Upper Lobe] Blood Pressure 127/84 128/91 135/95 O2 Sat by Pulse 92 92 Oximetry 01/26/17 01/26/17 01/26/17 03:30 03:44 04:00 Temperature 99.7 F H Pulse Rate 87 91 H 94 H Pulse Rate [ Anterior Bilateral Throughout] Pulse Rate [ Anterior Right Upper Lobe] Respiratory 17 21 Rate Respiratory Rate [Anterior Bilateral Throughout] Respiratory Rate [Anterior Right Upper Lobe] Blood Pressure 127/84 127/84 140/89 O2 Sat by Pulse 96 96 Oximetry 01/26/17 01/26/17 01/26/17 04:30 05:00 05:30 Temperature Pulse Rate 97 H 99 H 98 H Pulse Rate [ Anterior Bilateral Throughout] Pulse Rate [ Anterior Right Upper Lobe] Respiratory 17 17 18 Rate Respiratory Rate [Anterior Bilateral Throughout] Respiratory Rate [Anterior Right Upper Lobe] Blood Pressure 128/89 123/77 122/79 O2 Sat by Pulse 93 93 Oximetry 01/26/17 01/26/17 01/26/17 06:00 06:30 07:00 Temperature Pulse Rate 99 H 93 H 74 Pulse Rate [ Anterior Bilateral Throughout] Pulse Rate [ Anterior Right Upper Lobe] Respiratory 18 18 15 Rate Respiratory Rate [Anterior Bilateral Throughout] Respiratory Rate [Anterior Right Upper Lobe] Blood Pressure 116/77 121/81 119/80 O2 Sat by Pulse 92 96 95 Oximetry 01/26/17 01/26/17 01/26/17 07:30 07:49 07:54 Temperature Pulse Rate 67 73 Pulse Rate [ Anterior Bilateral Throughout] Pulse Rate [ 70 Anterior Right Upper Lobe] Respiratory 16 Rate Respiratory Rate [Anterior Bilateral Throughout] Respiratory 18 Rate [Anterior Right Upper Lobe] Blood Pressure 114/73 114/73 O2 Sat by Pulse 96 97 Oximetry Constitutional: no acute distress, comatose (secondary to medications) Eyes: non-icteric ENT: other (orally intubated sedated) Neck: supple Effort: mildly labored Ascultation: Bilateral: clear Percussion: Bilateral: not dull Cardiovascular: regular rate and rhythm (but sinus tach) Gastrointestinal: normoactive bowel sounds, soft, non-distended Integumentary: normal Extremities: no cyanosis, no edema, pink and warm, pulses normal CBC and BMP: 01/26/17 05:46 01/26/17 05:46 ABG, PT/INR, D-dimer: ABG POC ABG pH 7.472 (7.35-7.45) H 01/26/17 05:58 POC ABG pCO2 45.8 (35-45) H 01/26/17 05:58 POC ABG pO2 82 (80-105) 01/26/17 05:58 POC ABG HCO3 33.5 01/26/17 05:58 POC ABG Total CO2 35 01/26/17 05:58 POC ABG O2 Sat 97 01/26/17 05:58 PT/INR, D-dimer PT 13.5 Sec. (12.2-14.9) 01/23/17 04:22 INR 0.98 (0.87-1.13) 01/23/17 04:22 D-Dimer 204.60 ng/mlDDU (0-234) 01/23/17 Unknown Abnormal lab findings: Abnormal Labs 01/23/17 01/23/17 01/23/17 07:37 10:24 12:27 WBC Plt Count Seg Neuts % (Manual) Lymphocytes % (Manual) Seg Neutrophils # Man Monocytes # (Manual) POC ABG pH POC ABG pCO2 Sodium Chloride BUN Creatinine Glucose POC Glucose Lactic Acid Phosphorus Magnesium 3.30 H Total Creatine Kinase 503 H 523 H CK-MB (CK-2) 6.9 H 9.2 H 01/23/17 01/23/17 01/23/17 12:27 16:50 21:21 WBC Plt Count Seg Neuts % (Manual) Lymphocytes % (Manual) Seg Neutrophils # Man Monocytes # (Manual) POC ABG pH POC ABG pCO2 Sodium Chloride BUN Creatinine Glucose POC Glucose 166 H 158 H Lactic Acid Phosphorus 1.30 L Magnesium Total Creatine Kinase CK-MB (CK-2) 01/24/17 01/24/17 01/24/17 01:49 03:38 03:38 WBC 24.7 H Plt Count 45 L Seg Neuts % (Manual) 77.0 H Lymphocytes % (Manual) 6.0 L Seg Neutrophils # Man 19.0 H Monocytes # (Manual) 1.5 H POC ABG pH POC ABG pCO2 Sodium 136 L D Chloride 97.3 L BUN Creatinine 0.7 L Glucose 197 H POC Glucose 183 H Lactic Acid Phosphorus Magnesium Total Creatine Kinase CK-MB (CK-2) 01/24/17 01/24/17 01/24/17 04:46 05:04 09:00 WBC Plt Count Seg Neuts % (Manual) Lymphocytes % (Manual) Seg Neutrophils # Man Monocytes # (Manual) POC ABG pH 7.472 H POC ABG pCO2 Sodium Chloride BUN Creatinine Glucose POC Glucose 193 H 220 H Lactic Acid Phosphorus Magnesium Total Creatine Kinase CK-MB (CK-2) 01/24/17 01/24/17 01/24/17 12:26 14:07 18:00 WBC Plt Count Seg Neuts % (Manual) Lymphocytes % (Manual) Seg Neutrophils # Man Monocytes # (Manual) POC ABG pH POC ABG pCO2 Sodium Chloride BUN Creatinine Glucose POC Glucose 194 H 163 H Lactic Acid 2.30 H* Phosphorus Magnesium Total Creatine Kinase CK-MB (CK-2) 01/24/17 01/25/17 01/25/17 22:39 02:20 04:36 WBC Plt Count Seg Neuts % (Manual) Lymphocytes % (Manual) Seg Neutrophils # Man Monocytes # (Manual) POC ABG pH POC ABG pCO2 46.7 H Sodium Chloride BUN Creatinine Glucose POC Glucose 215 H 194 H Lactic Acid Phosphorus Magnesium Total Creatine Kinase CK-MB (CK-2) 01/25/17 01/25/17 01/25/17 05:37 05:37 06:03 WBC 34.5 H Plt Count Seg Neuts % (Manual) Lymphocytes % (Manual) Seg Neutrophils # Man Monocytes # (Manual) POC ABG pH POC ABG pCO2 Sodium Chloride BUN Creatinine 0.7 L Glucose 180 H POC Glucose 172 H Lactic Acid Phosphorus Magnesium Total Creatine Kinase CK-MB (CK-2) 01/25/17 01/25/17 01/25/17 09:42 13:10 17:30 WBC Plt Count Seg Neuts % (Manual) Lymphocytes % (Manual) Seg Neutrophils # Man Monocytes # (Manual) POC ABG pH POC ABG pCO2 Sodium Chloride BUN Creatinine Glucose POC Glucose 177 H 190 H 179 H Lactic Acid Phosphorus Magnesium Total Creatine Kinase CK-MB (CK-2) 01/25/17 01/26/17 01/26/17 21:25 00:00 05:23 WBC Plt Count Seg Neuts % (Manual) Lymphocytes % (Manual) Seg Neutrophils # Man Monocytes # (Manual) POC ABG pH POC ABG pCO2 Sodium Chloride BUN Creatinine Glucose POC Glucose 168 H 179 H 173 H Lactic Acid Phosphorus Magnesium Total Creatine Kinase CK-MB (CK-2) 01/26/17 01/26/17 01/26/17 05:46 05:46 05:58 WBC 30.6 H Plt Count Seg Neuts % (Manual) 93.0 H Lymphocytes % (Manual) 5.0 L Seg Neutrophils # Man 28.5 H Monocytes # (Manual) POC ABG pH 7.472 H POC ABG pCO2 45.8 H Sodium Chloride BUN 28 H Creatinine Glucose 187 H POC Glucose Lactic Acid Phosphorus Magnesium Total Creatine Kinase CK-MB (CK-2)
--- NOTE | 2017-01-26 08:26 | XRay Report ---
AP CHEST :01/26/17 CLINICAL: Intubated.Follow up respiratory failure. COMPARISON:The previous day. FINDINGS: The endotracheal tube is in satisfactory position. The nasogastric tube has been pulled back and the tip is in the proximal one third of the esophagus. Normal heart and pulmonary vessels. The lungs are normally expanded and clear. No pneumothorax. IMPRESSION: Nasogastric tube tip in the proximal esophagus.No congestive heart failure or pneumonia.
[2017-01-26] MEDS ORDERED: VERSED IV PRN (08:42)
--- NOTE | 2017-01-26 09:15 | XRay Report ---
KUB: 01/26/17 08:28:00 CLINICAL: Abdominal distention. COMPARISON: 01/25/17 FINDINGS: The nasogastric tube has been removed. The bowel gas pattern is now normal with resolution of proximal small bowel dilatation and resolution of gastric dilatation. Radiopaque object in the right upper quadrant and radiopaque tip in the pelvis overlying the right pubic bone are stable. IMPRESSION: Normal abdomen with resolution of small bowel dilatation.
--- NOTE | 2017-01-26 10:11 | Progress Note ---
Assessment and Plan Assessment: S/p Cardiorespiratory arrest - Leonid negative for AMI; ECG with no ischemic changes; EF 55-60%. Acute respiratory failure / Status asthmaticus - intubated Encephalopathy - head CT without definite acute intracranial abnormality. Leukocytosis / ? sepsis Sinus Tachycardia Transient atrial flutter - remains ST on tele; CHADS score 0. Myoclonus - EEG pending. Thrombocytopenia - improved this AM. Mild - moderate TR Plan: Currently stable cardiac status. Avoid BB in setting of asthma. No indication for any further cardiac evaluation at this time in setting of normal LVEF and suspected respiratory etiology of cardiorespiratory arrest. Possible anoxic encephalopathy. Prognosis is guarded. Will see PRN. The patient has been seen in conjunction with Dr. Barajas who agrees with the assessment and plan of care. Subjective Date of service: 01/26/17 Principal diagnosis: s/p cardiopulmonary arrest Interval history: Pt resting in bed, remains intubated, no muscular twitching noted today, eyes open but not following commands. In SR on tele with BPs WNL. Friend at bedside. Objective Last Vital Signs Temp 98.4 F 01/26/17 08:00 Pulse 74 01/26/17 09:51 Resp 24 01/26/17 09:51 BP 123/79 01/26/17 08:30 Pulse Ox 99 01/26/17 08:30 - Physical Examination General: Other (inbuated) Neck: Positive: neck supple. Negative: JVD/HJR Cardiac: Positive: Reg Rate and Rhythm, S1/S2 Lungs: Positive: Decreased Breath Sounds, Ventilated Respirations Neuro: Positive: Other (Comatose) Abdomen: Positive: Soft Extremities: Present: normal. Absent: edema - Labs and Meds Lipids 01/26/17 Range/Units 08:00 Triglycerides 235 H (2-149) mg/dL CBC 01/25/17 01/26/17 Range/Units 05:37 05:46 WBC 30.6 H (4.5-11.0) K/mm3 RBC 4.99 (3.65-5.03) M/mm3 Hgb 14.9 (11.8-15.2) gm/dl Hct 44.5 (35.5-45.6) % Plt Count 264 D Not Reportable (140-440) K/mm3 Comprehensive Metabolic Panel 01/26/17 Range/Units 05:46 Sodium 141 (137-145) mmol/L Potassium 4.6 (3.6-5.0) mmol/L Chloride 100.9 (98-107) mmol/L Carbon Dioxide 23 (22-30) mmol/L BUN 28 H (9-20) mg/dL Creatinine 0.8 (0.8-1.5) mg/dL Glucose 187 H (75-100) mg/dL Calcium 8.7 (8.4-10.2) mg/dL - Imaging and Cardiology EKG: report reviewed, image reviewed Echo: report reviewed - EKG Sinus rhythms and dysrhythmias: sinus tachycardia
[2017-01-26] MEDS: VITAMIN B-1 PO SCH (10:17)
[2017-01-26] MEDS: KEPPRA 500 MG in D5W 100 ML IV SCH ×2 (10:17→21:53)
[2017-01-26] MEDS: PEPCID PO SCH ×2 (10:17→21:53)
[2017-01-26] MEDS: FOLVITE PO SCH (10:17)
[2017-01-26 11:09] LABS: Smear for Schistocytes None Seen; Smear for Spherocytes None Seen
--- NOTE | 2017-01-26 13:01 | Progress Note ---
Assessment and Plan 36 YO M Hx asthma p/w SOB c/b cardiopulmonary arrest requiring ACLS for 12 mins in hospital on 01/23 @ approx 3 AM. 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 On neuro exam as of 01/26 11 AM pt has all intact brainstem reflexes but no purposeful movements as UE and LE movement limited to myoclonus but pt on high doses of Propofol/Versed. CTH neg and EEG mod nonspecific diffuse cerebral dysfunction some ? reactivity but no seizures. Final neuro prognosis cannot be given at this time as 72 hrs will need to elapse after arrest, return to physiologic temp and OFF sedative however @ this time pt does NOT meet AAN criteria for poor neuro prognosis (, unconsciousness after one month, or unconsciousness or severe disability after six months) however further time thresholds will need to be met.He will likely have some at least mild anoxic encephalopathy Recs: 1. Neuro checks Q4hrs 2. LEV 500mg IV BID to help control myoclonus 3. Will return in f/u consultation 01/31 or when off sedation > 72 hrs. We can return earlier as needed. Subjective Date of service: 01/26/17 Principal diagnosis: s/p cardiopulmonary arrest Interval history: still on Versed/Propofol but weanign attempted although limited by elevated HR/ BP Objective - Vital Sign Vital Signs - 12hr 01/26/17 01/26/17 01/26/17 01:00 01:30 02:00 Temperature Pulse Rate 92 H 93 H 96 H Pulse Rate [ Anterior Right Upper Lobe] Pulse Rate [ From Monitor] Respiratory 16 16 16 Rate Respiratory Rate [Anterior Right Upper Lobe] Blood Pressure 129/87 130/89 127/84 O2 Sat by Pulse 92 92 Oximetry 01/26/17 01/26/17 01/26/17 02:30 03:00 03:30 Temperature Pulse Rate 94 H 89 87 Pulse Rate [ Anterior Right Upper Lobe] Pulse Rate [ From Monitor] Respiratory 18 17 17 Rate Respiratory Rate [Anterior Right Upper Lobe] Blood Pressure 128/91 135/95 127/84 O2 Sat by Pulse 92 Oximetry 01/26/17 01/26/17 01/26/17 03:44 04:00 04:30 Temperature 99.7 F H Pulse Rate 91 H 94 H 97 H Pulse Rate [ Anterior Right Upper Lobe] Pulse Rate [ From Monitor] Respiratory 21 17 Rate Respiratory Rate [Anterior Right Upper Lobe] Blood Pressure 127/84 140/89 128/89 O2 Sat by Pulse 96 96 Oximetry 01/26/17 01/26/17 01/26/17 05:00 05:30 06:00 Temperature Pulse Rate 99 H 98 H 99 H Pulse Rate [ Anterior Right Upper Lobe] Pulse Rate [ From Monitor] Respiratory 17 18 18 Rate Respiratory Rate [Anterior Right Upper Lobe] Blood Pressure 123/77 122/79 116/77 O2 Sat by Pulse 93 93 92 Oximetry 01/26/17 01/26/17 01/26/17 06:30 07:00 07:30 Temperature Pulse Rate 93 H 74 67 Pulse Rate [ Anterior Right Upper Lobe] Pulse Rate [ From Monitor] Respiratory 18 15 16 Rate Respiratory Rate [Anterior Right Upper Lobe] Blood Pressure 121/81 119/80 114/73 O2 Sat by Pulse 96 95 96 Oximetry 01/26/17 01/26/17 01/26/17 07:49 07:54 08:00 Temperature 98.4 F Pulse Rate 73 58 L Pulse Rate [ 70 Anterior Right Upper Lobe] Pulse Rate [ 57 L From Monitor] Respiratory 16 Rate Respiratory 18 Rate [Anterior Right Upper Lobe] Blood Pressure 114/73 123/81 O2 Sat by Pulse 97 98 Oximetry 01/26/17 01/26/17 01/26/17 08:30 09:00 09:30 Temperature Pulse Rate 57 L 74 88 Pulse Rate [ Anterior Right Upper Lobe] Pulse Rate [ From Monitor] Respiratory 16 16 16 Rate Respiratory Rate [Anterior Right Upper Lobe] Blood Pressure 123/79 122/82 128/83 O2 Sat by Pulse 99 Oximetry 01/26/17 01/26/17 01/26/17 09:51 10:00 10:30 Temperature Pulse Rate 87 76 Pulse Rate [ 74 Anterior Right Upper Lobe] Pulse Rate [ From Monitor] Respiratory 16 15 Rate Respiratory 24 Rate [Anterior Right Upper Lobe] Blood Pressure 129/85 127/80 O2 Sat by Pulse 95 Oximetry 01/26/17 01/26/17 01/26/17 11:00 11:30 12:00 Temperature 99 F Pulse Rate 75 80 82 Pulse Rate [ Anterior Right Upper Lobe] Pulse Rate [ From Monitor] Respiratory 16 16 16 Rate Respiratory Rate [Anterior Right Upper Lobe] Blood Pressure 131/80 125/83 126/82 O2 Sat by Pulse 93 94 95 Oximetry 01/26/17 12:45 Temperature Pulse Rate 66 Pulse Rate [ Anterior Right Upper Lobe] Pulse Rate [ From Monitor] Respiratory Rate Respiratory Rate [Anterior Right Upper Lobe] Blood Pressure 124/80 O2 Sat by Pulse 96 Oximetry - General Apperance Constitutional: acutely ill - EENT EENT: ATNC, PERRL, mucous membranes dry - Respiratory Respiratory: chest non-tender, decreased breath sounds - Cardiovascular Cardiovascular: regular rate Extremities: no peripheral edema bilat, no clubbing, cyanosis, no inflammation, no ischemia or petechiae - Gastrointestinal Gastrointestinal: normoactive bowel sounds, soft, non-distended - Integumentary Integumentary: normal - Neurologic Cranial nerve examination: PERRL, V1/V2/V3 grossly intact, face symmetric, tongue midline, Intact Vestibulo-ocular r, intact corneal reflex Speech examination: other (no speech not followign commands) Detailed motor examination: other (myoclonic nonpurposeful movements diffusely) - Musculoskeletal Musculoskeletal: no fluid collection, no pain, normal range of motion - Laboratory Findings CBC and BMP: 01/26/17 05:46 01/26/17 05:46 Abnormal Lab Findings: Abnormal Labs 01/23/17 01/23/17 01/23/17 07:37 10:24 12:27 WBC Plt Count Seg Neuts % (Manual) Lymphocytes % (Manual) Seg Neutrophils # Man Monocytes # (Manual) POC ABG pH POC ABG pCO2 Sodium Chloride BUN Creatinine Glucose POC Glucose Lactic Acid Phosphorus Magnesium 3.30 H Total Creatine Kinase 503 H 523 H CK-MB (CK-2) 6.9 H 9.2 H Triglycerides 01/23/17 01/23/17 01/23/17 12:27 16:50 21:21 WBC Plt Count Seg Neuts % (Manual) Lymphocytes % (Manual) Seg Neutrophils # Man Monocytes # (Manual) POC ABG pH POC ABG pCO2 Sodium Chloride BUN Creatinine Glucose POC Glucose 166 H 158 H Lactic Acid Phosphorus 1.30 L Magnesium Total Creatine Kinase CK-MB (CK-2) Triglycerides 01/24/17 01/24/17 01/24/17 01:49 03:38 03:38 WBC 24.7 H Plt Count 45 L Seg Neuts % (Manual) 77.0 H Lymphocytes % (Manual) 6.0 L Seg Neutrophils # Man 19.0 H Monocytes # (Manual) 1.5 H POC ABG pH POC ABG pCO2 Sodium 136 L D Chloride 97.3 L BUN Creatinine 0.7 L Glucose 197 H POC Glucose 183 H Lactic Acid Phosphorus Magnesium Total Creatine Kinase CK-MB (CK-2) Triglycerides 01/24/17 01/24/17 01/24/17 04:46 05:04 09:00 WBC Plt Count Seg Neuts % (Manual) Lymphocytes % (Manual) Seg Neutrophils # Man Monocytes # (Manual) POC ABG pH 7.472 H POC ABG pCO2 Sodium Chloride BUN Creatinine Glucose POC Glucose 193 H 220 H Lactic Acid Phosphorus Magnesium Total Creatine Kinase CK-MB (CK-2) Triglycerides 01/24/17 01/24/17 01/24/17 12:26 14:07 18:00 WBC Plt Count Seg Neuts % (Manual) Lymphocytes % (Manual) Seg Neutrophils # Man Monocytes # (Manual) POC ABG pH POC ABG pCO2 Sodium Chloride BUN Creatinine Glucose POC Glucose 194 H 163 H Lactic Acid 2.30 H* Phosphorus Magnesium Total Creatine Kinase CK-MB (CK-2) Triglycerides 01/24/17 01/25/17 01/25/17 22:39 02:20 04:36 WBC Plt Count Seg Neuts % (Manual) Lymphocytes % (Manual) Seg Neutrophils # Man Monocytes # (Manual) POC ABG pH POC ABG pCO2 46.7 H Sodium Chloride BUN Creatinine Glucose POC Glucose 215 H 194 H Lactic Acid Phosphorus Magnesium Total Creatine Kinase CK-MB (CK-2) Triglycerides 01/25/17 01/25/17 01/25/17 05:37 05:37 06:03 WBC 34.5 H Plt Count Seg Neuts % (Manual) Lymphocytes % (Manual) Seg Neutrophils # Man Monocytes # (Manual) POC ABG pH POC ABG pCO2 Sodium Chloride BUN Creatinine 0.7 L Glucose 180 H POC Glucose 172 H Lactic Acid Phosphorus Magnesium Total Creatine Kinase CK-MB (CK-2) Triglycerides 01/25/17 01/25/17 01/25/17 09:42 13:10 17:30 WBC Plt Count Seg Neuts % (Manual) Lymphocytes % (Manual) Seg Neutrophils # Man Monocytes # (Manual) POC ABG pH POC ABG pCO2 Sodium Chloride BUN Creatinine Glucose POC Glucose 177 H 190 H 179 H Lactic Acid Phosphorus Magnesium Total Creatine Kinase CK-MB (CK-2) Triglycerides 01/25/17 01/26/17 01/26/17 21:25 00:00 05:23 WBC Plt Count Seg Neuts % (Manual) Lymphocytes % (Manual) Seg Neutrophils # Man Monocytes # (Manual) POC ABG pH POC ABG pCO2 Sodium Chloride BUN Creatinine Glucose POC Glucose 168 H 179 H 173 H Lactic Acid Phosphorus Magnesium Total Creatine Kinase CK-MB (CK-2) Triglycerides 01/26/17 01/26/17 01/26/17 05:46 05:46 05:58 WBC 30.6 H Plt Count Seg Neuts % (Manual) 93.0 H Lymphocytes % (Manual) 5.0 L Seg Neutrophils # Man 28.5 H Monocytes # (Manual) POC ABG pH 7.472 H POC ABG pCO2 45.8 H Sodium Chloride BUN 28 H Creatinine Glucose 187 H POC Glucose Lactic Acid Phosphorus Magnesium Total Creatine Kinase CK-MB (CK-2) Triglycerides 01/26/17 01/26/17 08:00 09:55 WBC Plt Count Seg Neuts % (Manual) Lymphocytes % (Manual) Seg Neutrophils # Man Monocytes # (Manual) POC ABG pH POC ABG pCO2 Sodium Chloride BUN Creatinine Glucose POC Glucose 162 H Lactic Acid Phosphorus Magnesium Total Creatine Kinase CK-MB (CK-2) Triglycerides 235 H
--- NOTE | 2017-01-26 13:16 | Progress Note ---
Assessment and Plan Assessment and plan: Cardiopulmonary arrest. Continue supportive care. Cardiac isoenzymes negative for acute AL. EKG with no ischemic changes. Echocardiogram okay. Acute asthma exacerbation. Continue IV solu-medrol, Duoneb, Pulmicort and Brovana Acute respiratory failure due to asthma exacerbation. Cont vent management Anoxic Encephalopathy. Neurology following. 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 CT head negative. Sepsis. Present on admission. Patient with fever and significant leukocytosis. Continue IV antibiotics and follow cultures. Thrombocytopenia. Improved. DVT prophylaxis with SCDs only. Not on heparin/Lovenox because of thrombocytopenia Full code status History Interval history: No new issues overnight. Hospitalist Physical - Constitutional Vitals: Temp Pulse Resp BP Pulse Ox 99 F 66 16 124/80 96 01/26/17 12:00 01/26/17 12:45 01/26/17 12:00 01/26/17 12:45 01/26/17 12:45 General appearance: Present: other (patient is intubated.) - EENT Eyes: Present: PERRL, EOM intact ENT: hearing intact, clear oral mucosa, dentition normal - Neck Neck: Present: supple, normal ROM - Respiratory Respiratory effort: normal Respiratory: bilateral: diminished, rhonchi - Cardiovascular Rhythm: regular Heart Sounds: Present: S1 & S2. Absent: gallop, rub - Extremities Extremities: no ischemia, No edema, Full ROM - Abdominal General gastrointestinal: soft, non-tender, non-distended, normal bowel sounds - Integumentary Integumentary: Present: clear, warm, dry - Neurologic Neurologic: CNII-XII intact, moves all extremities Results - Labs CBC & Chem 7: 01/26/17 05:46 01/26/17 05:46 Labs: Laboratory Last Values WBC 30.6 K/mm3 (4.5-11.0) H 01/26/17 05:46 RBC 4.99 M/mm3 (3.65-5.03) 01/26/17 05:46 Hgb 14.9 gm/dl (11.8-15.2) 01/26/17 05:46 Hct 44.5 % (35.5-45.6) 01/26/17 05:46 MCV 89 fl (84-94) 01/26/17 05:46 MCH 30 pg (28-32) 01/26/17 05:46 MCHC 34 % (32-34) 01/26/17 05:46 RDW 14.0 % (13.2-15.2) 01/26/17 05:46 Plt Count Not Reportable 01/26/17 05:46 Lymph # Condenser Winder 01/23/17 04:22 Add Manual Diff Complete 01/26/17 05:46 Total Counted 100 01/26/17 05:46 Seg Neutrophils % Condenser Winder 01/23/17 04:22 Seg Neuts % (Manual) 93.0 % (40.0-70.0) H 01/26/17 05:46 Band Neutrophils % 0 % 01/26/17 05:46 Lymphocytes % (Manual) 5.0 % (13.4-35.0) L 01/26/17 05:46 Reactive Lymphs % (Man) 0 % 01/26/17 05:46 Monocytes % (Manual) 2.0 % (0.0-7.3) 01/26/17 05:46 Eosinophils % (Manual) 0 % (0.0-4.3) 01/26/17 05:46 Basophils % (Manual) 0 % (0.0-1.8) 01/26/17 05:46 Metamyelocytes % 0 % 01/26/17 05:46 Myelocytes % 0 % 01/26/17 05:46 Promyelocytes % 0 % 01/26/17 05:46 Blast Cells % 0 % 01/26/17 05:46 Nucleated RBC % Not Reportable 01/26/17 05:46 Seg Neutrophils # Man 28.5 K/mm3 (1.8-7.7) H 01/26/17 05:46 Band Neutrophils # 0.0 K/mm3 01/26/17 05:46 Lymphocytes # (Manual) 1.5 K/mm3 (1.2-5.4) 01/26/17 05:46 Abs React Lymphs (Man) 0.0 K/mm3 01/26/17 05:46 Monocytes # (Manual) 0.6 K/mm3 (0.0-0.8) 01/26/17 05:46 Eosinophils # (Manual) 0.0 K/mm3 (0.0-0.4) 01/26/17 05:46 Basophils # (Manual) 0.0 K/mm3 (0.0-0.1) 01/26/17 05:46 Metamyelocytes # 0.0 K/mm3 01/26/17 05:46 Myelocytes # 0.0 K/mm3 01/26/17 05:46 Promyelocytes # 0.0 K/mm3 01/26/17 05:46 Blast Cells # 0.0 K/mm3 01/26/17 05:46 WBC Morphology Not Reportable 01/26/17 05:46 Hypersegmented Neuts Not Reportable 01/26/17 05:46 Hyposegmented Neuts Not Reportable 01/26/17 05:46 Hypogranular Neuts Not Reportable 01/26/17 05:46 Smudge Cells Not Reportable 01/26/17 05:46 Toxic Granulation Not Reportable 01/26/17 05:46 Toxic Vacuolation Not Reportable 01/26/17 05:46 Dohle Bodies Not Reportable 01/26/17 05:46 Pelger-Huet Anomaly Not Reportable 01/26/17 05:46 Noe Rods Not Reportable 01/26/17 05:46 Platelet Estimate Not Reportable 01/26/17 05:46 Clumped Platelets 3+ 01/26/17 05:46 Plt Clumps, EDTA Not Reportable 01/26/17 05:46 Large Platelets Not Reportable 01/26/17 05:46 Giant Platelets Not Reportable 01/26/17 05:46 Platelet Satelliting Not Reportable 01/26/17 05:46 Plt Morphology Comment Not Reportable 01/26/17 05:46 RBC Morphology Not Reportable 01/26/17 05:46 Dimorphic RBCs Not Reportable 01/26/17 05:46 Polychromasia Not Reportable 01/26/17 05:46 Hypochromasia Not Reportable 01/26/17 05:46 Poikilocytosis Not Reportable 01/26/17 05:46 Anisocytosis Not Reportable 01/26/17 05:46 Microcytosis Not Reportable 01/26/17 05:46 Macrocytosis Not Reportable 01/26/17 05:46 Spherocytes None seen 01/26/17 09:25 Pappenheimer Bodies Not Reportable 01/26/17 05:46 Sickle Cells Not Reportable 01/26/17 05:46 Target Cells Not Reportable 01/26/17 05:46 Tear Drop Cells Not Reportable 01/26/17 05:46 Ovalocytes Not Reportable 01/26/17 05:46 Helmet Cells Not Reportable 01/26/17 05:46 [place] Bodies Not Reportable 01/26/17 05:46 [place] Rings Not Reportable 01/26/17 05:46 [place] Cells Not Reportable 01/26/17 05:46 Bite Cells Not Reportable 01/26/17 05:46 Crenated Cell Not Reportable 01/26/17 05:46 Elliptocytes Not Reportable 01/26/17 05:46 Acanthocytes (Spur) Not Reportable 01/26/17 05:46 Rouleaux Not Reportable 01/26/17 05:46 Hemoglobin C Crystals Not Reportable 01/26/17 05:46 Schistocytes Not Reportable 01/26/17 05:46 Malaria parasites Not Reportable 01/26/17 05:46 [place] Bodies Not Reportable 01/26/17 05:46 Hem Pathologist Commnt No 01/26/17 05:46 PT 13.5 Sec. (12.2-14.9) 01/23/17 04:22 INR 0.98 (0.87-1.13) 01/23/17 04:22 APTT 27.6 Sec. (24.2-36.6) 01/23/17 04:22 D-Dimer 204.60 ng/mlDDU (0-234) 01/23/17 Unknown POC ABG pH 7.472 (7.35-7.45) H 01/26/17 05:58 POC ABG pCO2 45.8 (35-45) H 01/26/17 05:58 POC ABG pO2 82 (80-105) 01/26/17 05:58 POC ABG HCO3 33.5 01/26/17 05:58 POC ABG Total CO2 35 01/26/17 05:58 POC ABG O2 Sat 97 01/26/17 05:58 POC ABG Base Excess 10 01/26/17 05:58 FiO2 35 % 01/26/17 05:58 Sodium 141 mmol/L (137-145) 01/26/17 05:46 Potassium 4.6 mmol/L (3.6-5.0) 01/26/17 05:46 Chloride 100.9 mmol/L (98-107) 01/26/17 05:46 Carbon Dioxide 23 mmol/L (22-30) 01/26/17 05:46 Anion Gap 22 mmol/L 01/26/17 05:46 BUN 28 mg/dL (9-20) H 01/26/17 05:46 Creatinine 0.8 mg/dL (0.8-1.5) 01/26/17 05:46 Estimated GFR > 60 ml/min 01/26/17 05:46 BUN/Creatinine Ratio 35.00 % 01/26/17 05:46 Glucose 187 mg/dL (75-100) H 01/26/17 05:46 POC Glucose 162 (70-105) H 01/26/17 09:55 Lactic Acid 1.80 mmol/L (0.7-2.0) 01/24/17 16:08 Calcium 8.7 mg/dL (8.4-10.2) 01/26/17 05:46 Phosphorus 2.60 mg/dL (2.5-4.5) D 01/24/17 07:31 Magnesium 3.30 mg/dL (1.7-2.3) H 01/23/17 10:24 Total Bilirubin 0.80 mg/dL (0.1-1.2) 01/25/17 05:37 AST 14 units/L (5-40) 01/25/17 05:37 ALT 26 units/L (7-56) 01/25/17 05:37 Alkaline Phosphatase 64 units/L (35-129) 01/25/17 05:37 Total Creatine Kinase 523 units/L (55-170) H 01/23/17 12:27 CK-MB (CK-2) 9.2 ng/mL (0.0-4.0) H 01/23/17 12:27 CK-MB (CK-2) Rel Index 1.7 (0-4) 01/23/17 12:27 Troponin T < 0.010 ng/mL (0.00-0.029) 01/23/17 12:27 NT-Pro-B Natriuret Pep 22.36 pg/mL (0-450) 01/23/17 04:23 Total Protein 7.9 g/dL (6.3-8.2) 01/25/17 05:37 Albumin 4.0 g/dL (3.9-5) 01/25/17 05:37 Albumin/Globulin Ratio 1.0 % 01/25/17 05:37 Triglycerides 235 mg/dL (2-149) H 01/26/17 08:00 Urine Color Yellow (Yellow) 01/23/17 Unknown Urine Turbidity Clear (Clear) 01/23/17 Unknown Urine pH 5.0 (5.0-7.0) 01/23/17 Unknown Ur Specific [place] 1.018 (1.003-1.030) 01/23/17 Unknown Urine Protein <15 mg/dl mg/dL (Negative) 01/23/17 Unknown Urine Glucose (UA) Neg mg/dL (Negative) 01/23/17 Unknown Urine Ketones Neg mg/dL (Negative) 01/23/17 Unknown Urine Blood Neg (Negative) 01/23/17 Unknown Urine Nitrite Neg (Negative) 01/23/17 Unknown Urine Bilirubin Neg (Negative) 01/23/17 Unknown Urine Urobilinogen < 2.0 mg/dL (<2.0) 01/23/17 Unknown Ur Leukocyte Esterase Neg (Negative) 01/23/17 Unknown Urine WBC (Auto) 2.0 /HPF (0.0-6.0) 01/23/17 Unknown Urine RBC (Auto) 1.0 /HPF (0.0-6.0) 01/23/17 Unknown Urine Mucus Few /HPF 01/23/17 Unknown Urine Sperm 2+ /HPF (GENERAL UTILITY MAINTENANCE REPAIRER) 01/23/17 Unknown Urine Opiates Screen Presumptive positive 01/23/17 Unknown Urine Methadone Screen Presumptive negative 01/23/17 Unknown Ur Barbiturates Screen Presumptive positive 01/23/17 Unknown Ur Phencyclidine Scrn Presumptive negative 01/23/17 Unknown Ur Amphetamines Screen Presumptive negative 01/23/17 Unknown U Benzodiazepines Scrn Presumptive positive 01/23/17 Unknown Urine Cocaine Screen Presumptive negative 01/23/17 Unknown U Marijuana (THC) Screen Presumptive negative 01/23/17 Unknown Drugs of Abuse Note Disclamer 01/23/17 Unknown Schistocytes Smear None seen 01/26/17 09:25 Blood Type O POSITIVE 01/24/17 11:15 Antibody Screen TNR 01/24/17 11:15 HENRY Antibody Screen Negative 01/24/17 11:15
[2017-01-26] MEDS: SUBLIMAZE IV PRN ×2 (14:06→17:50)
--- NOTE | 2017-01-26 16:11 | XRay Report ---
KUB: 01/26/17 CLINICAL: Feeding tube placement. FINDINGS: Since the previous exam done earlier on the same day, a feeding tube has been placed. The tip is in the distal stomach in satisfactory position. The abdomen is otherwise unchanged. IMPRESSION: Satisfactory position of the feeding tube.
[2017-01-27] MEDS: SUBLIMAZE IV PRN (03:01)
[2017-01-27] MEDS: PROVENTIL IH PRN ×2 (03:33→15:10)
[2017-01-27 05:17] LABS: Hematocrit 29.4 % (35.5-45.6); Hemoglobin 9.4 gm/dl (11.8-15.2); Mean Corpuscular HGB Conc 32 % (32-34); Mean Corpuscular Hemoglobin 29 pg (28-32); Mean Corpuscular Volume 90 fl (84-94); Platelet Count 113 K/mm3 (140-440); Red Blood Count 3.27 M/mm3 (3.65-5.03); Red Cell Distribution Width 18.2 % (13.2-15.2); White Blood Count 4.7 K/mm3 (4.5-11.0)
[2017-01-27 05:31] LABS: ISTAT Base Excess 7; ISTAT HCO3 31.6; ISTAT PH 7.417 (7.35-7.45); ISTAT PO2 95 (80-105); ISTAT SO2 97; ISTAT TCO2 33
[2017-01-27 05:35] LABS: Anion Gap 16 mmol/L; Blood Urea Nitrogen 33 mg/dL (9-20); Calcium 8.5 mg/dL (8.4-10.2); Carbon Dioxide 26 mmol/L (22-30); Chloride 100.1 mmol/L (98-107); Glucose 226 mg/dL (75-100); Potassium 3.8 mmol/L (3.6-5.0); Sodium 138 mmol/L (137-145)
[2017-01-27 06:35] LABS: Anisocytosis 1+; Basophils % (Manual) 0 % (0.0-1.8); Blastocytes % (Manual) 0 %; Diff Status Complete; Eosinophils % (Manual) 0 % (0.0-4.3); Platelet Estimate Consistent w Auto; Schistocytes Rare
--- NOTE | 2017-01-27 07:52 | XRay Report ---
AP CHEST: HISTORY: Followup respiratory failure Lines and tubes remain in good position. The nasogastric tube has been replaced with a feeding tube. AP view of the chest demonstrates a normal mediastinal and cardiac contour with clear lungs and normal bony and soft tissue structures. IMPRESSION: No change.
[2017-01-27] MEDS: PULMICORT IH SCH ×2 (08:33→19:39)
[2017-01-27] MEDS: BROVANA NEBU IH SCH ×2 (08:33→19:39)
[2017-01-27] MEDS: PEPCID PO SCH (10:26)
[2017-01-27] MEDS: FOLVITE PO SCH (10:27)
[2017-01-27] MEDS: VITAMIN B-1 PO SCH (10:27)
[2017-01-27] MEDS: KEPPRA 500 MG in D5W 100 ML IV SCH (11:02)
[2017-01-27] MEDS ORDERED: ATIVAN IV ONE (11:15)
--- NOTE | 2017-01-27 11:39 | Progress Note ---
Assessment and Plan 36 y/o male with acute respiratory failure, thought secondary to asthma exacerbation. 1. Continue roids, dropped to q12 today. 2. Continue Pulmicort and brovana 3. continue scheduled short acting nebs 4. stop all sedation. Added PRN haldol for agitation. 5. DVT and GI prophylaxis 6. Feedings restarted, tolerating. KUB was normal 7. Still would recommend heme consult. I stopped pepcid today but of note, platelets were low on admission. Need to follow up smear (schistiocytes are not seen) CCT 31 minutes. Subjective Date of service: 01/27/17 Principal diagnosis: s/p cardiopulmonary arrest Interval history: No acute events. Off all sedation now. Received 1 PRN dose last night. Remainder is negative. No further myoclonus. Objective Vital Signs - 12hr 01/27/17 01/27/17 01/27/17 00:00 00:30 01:00 Temperature 99.5 F Pulse Rate 68 64 52 L Pulse Rate [ Anterior Right Upper Lobe] Pulse Rate [ Anterior Throughout] Pulse Rate [ 64 From Monitor] Respiratory 14 16 16 Rate Respiratory Rate [Anterior Right Upper Lobe] Respiratory Rate [Anterior Throughout] Blood Pressure 128/74 118/68 110/58 O2 Sat by Pulse 96 90 92 Oximetry 01/27/17 01/27/17 01/27/17 01:30 02:00 02:30 Temperature Pulse Rate 63 75 58 L Pulse Rate [ Anterior Right Upper Lobe] Pulse Rate [ Anterior Throughout] Pulse Rate [ From Monitor] Respiratory 14 14 16 Rate Respiratory Rate [Anterior Right Upper Lobe] Respiratory Rate [Anterior Throughout] Blood Pressure 130/85 122/80 124/75 O2 Sat by Pulse 99 98 Oximetry 01/27/17 01/27/17 01/27/17 03:00 03:31 03:47 Temperature Pulse Rate 59 L 58 L Pulse Rate [ 67 Anterior Right Upper Lobe] Pulse Rate [ Anterior Throughout] Pulse Rate [ From Monitor] Respiratory 16 14 Rate Respiratory 21 Rate [Anterior Right Upper Lobe] Respiratory Rate [Anterior Throughout] Blood Pressure 111/66 141/98 O2 Sat by Pulse 97 100 Oximetry 01/27/17 01/27/17 01/27/17 04:00 04:30 05:00 Temperature 98.4 F Pulse Rate 57 L 56 L 47 L Pulse Rate [ Anterior Right Upper Lobe] Pulse Rate [ Anterior Throughout] Pulse Rate [ From Monitor] Respiratory 16 16 16 Rate Respiratory Rate [Anterior Right Upper Lobe] Respiratory Rate [Anterior Throughout] Blood Pressure 127/71 117/72 111/72 O2 Sat by Pulse 98 97 98 Oximetry 01/27/17 01/27/17 01/27/17 05:30 05:45 06:00 Temperature Pulse Rate 45 L 49 L 59 L Pulse Rate [ Anterior Right Upper Lobe] Pulse Rate [ Anterior Throughout] Pulse Rate [ From Monitor] Respiratory 16 15 Rate Respiratory Rate [Anterior Right Upper Lobe] Respiratory Rate [Anterior Throughout] Blood Pressure 131/73 123/71 143/91 O2 Sat by Pulse 98 97 98 Oximetry 01/27/17 01/27/17 01/27/17 06:30 07:00 08:00 Temperature 99.2 F Pulse Rate 60 55 L Pulse Rate [ Anterior Right Upper Lobe] Pulse Rate [ Anterior Throughout] Pulse Rate [ From Monitor] Respiratory 16 14 Rate Respiratory Rate [Anterior Right Upper Lobe] Respiratory Rate [Anterior Throughout] Blood Pressure 130/66 119/66 O2 Sat by Pulse 96 95 Oximetry 01/27/17 01/27/17 01/27/17 08:28 08:33 08:59 Temperature Pulse Rate 63 Pulse Rate [ Anterior Right Upper Lobe] Pulse Rate [ 56 L 51 L Anterior Throughout] Pulse Rate [ From Monitor] Respiratory Rate Respiratory Rate [Anterior Right Upper Lobe] Respiratory 17 16 Rate [Anterior Throughout] Blood Pressure 132/75 O2 Sat by Pulse 96 Oximetry Constitutional: no acute distress, comatose (secondary to medications) Eyes: non-icteric ENT: other (orally intubated sedated) Neck: supple Effort: mildly labored Ascultation: Bilateral: clear Percussion: Bilateral: not dull Cardiovascular: regular rate and rhythm (but sinus tach) Gastrointestinal: normoactive bowel sounds, soft, non-distended Integumentary: normal Extremities: no cyanosis, no edema, pink and warm, pulses normal CBC and BMP: 01/27/17 04:14 01/27/17 04:14 ABG, PT/INR, D-dimer: ABG POC ABG pH 7.417 (7.35-7.45) 01/27/17 05:03 POC ABG pCO2 49.0 (35-45) H 01/27/17 05:03 POC ABG pO2 95 (80-105) 01/27/17 05:03 POC ABG HCO3 31.6 01/27/17 05:03 POC ABG Total CO2 33 01/27/17 05:03 POC ABG O2 Sat 97 01/27/17 05:03 PT/INR, D-dimer PT 13.5 Sec. (12.2-14.9) 01/23/17 04:22 INR 0.98 (0.87-1.13) 01/23/17 04:22 D-Dimer 204.60 ng/mlDDU (0-234) 01/23/17 Unknown Abnormal lab findings: Abnormal Labs 01/23/17 01/23/17 01/23/17 07:37 10:24 12:27 WBC RBC Hgb Hct RDW Plt Count Seg Neuts % (Manual) Lymphocytes % (Manual) Seg Neutrophils # Man Lymphocytes # (Manual) Monocytes # (Manual) POC ABG pH POC ABG pCO2 Sodium Chloride BUN Creatinine Glucose POC Glucose Lactic Acid Phosphorus Magnesium 3.30 H Total Creatine Kinase 503 H 523 H CK-MB (CK-2) 6.9 H 9.2 H Triglycerides 01/23/17 01/23/17 01/23/17 12:27 16:50 21:21 WBC RBC Hgb Hct RDW Plt Count Seg Neuts % (Manual) Lymphocytes % (Manual) Seg Neutrophils # Man Lymphocytes # (Manual) Monocytes # (Manual) POC ABG pH POC ABG pCO2 Sodium Chloride BUN Creatinine Glucose POC Glucose 166 H 158 H Lactic Acid Phosphorus 1.30 L Magnesium Total Creatine Kinase CK-MB (CK-2) Triglycerides 01/24/17 01/24/17 01/24/17 01:49 03:38 03:38 WBC 24.7 H RBC Hgb Hct RDW Plt Count 45 L Seg Neuts % (Manual) 77.0 H Lymphocytes % (Manual) 6.0 L Seg Neutrophils # Man 19.0 H Lymphocytes # (Manual) Monocytes # (Manual) 1.5 H POC ABG pH POC ABG pCO2 Sodium 136 L D Chloride 97.3 L BUN Creatinine 0.7 L Glucose 197 H POC Glucose 183 H Lactic Acid Phosphorus Magnesium Total Creatine Kinase CK-MB (CK-2) Triglycerides 01/24/17 01/24/17 01/24/17 04:46 05:04 09:00 WBC RBC Hgb Hct RDW Plt Count Seg Neuts % (Manual) Lymphocytes % (Manual) Seg Neutrophils # Man Lymphocytes # (Manual) Monocytes # (Manual) POC ABG pH 7.472 H POC ABG pCO2 Sodium Chloride BUN Creatinine Glucose POC Glucose 193 H 220 H Lactic Acid Phosphorus Magnesium Total Creatine Kinase CK-MB (CK-2) Triglycerides 01/24/17 01/24/17 01/24/17 12:26 14:07 18:00 WBC RBC Hgb Hct RDW Plt Count Seg Neuts % (Manual) Lymphocytes % (Manual) Seg Neutrophils # Man Lymphocytes # (Manual) Monocytes # (Manual) POC ABG pH POC ABG pCO2 Sodium Chloride BUN Creatinine Glucose POC Glucose 194 H 163 H Lactic Acid 2.30 H* Phosphorus Magnesium Total Creatine Kinase CK-MB (CK-2) Triglycerides 01/24/17 01/25/17 01/25/17 22:39 02:20 04:36 WBC RBC Hgb Hct RDW Plt Count Seg Neuts % (Manual) Lymphocytes % (Manual) Seg Neutrophils # Man Lymphocytes # (Manual) Monocytes # (Manual) POC ABG pH POC ABG pCO2 46.7 H Sodium Chloride BUN Creatinine Glucose POC Glucose 215 H 194 H Lactic Acid Phosphorus Magnesium Total Creatine Kinase CK-MB (CK-2) Triglycerides 01/25/17 01/25/17 01/25/17 05:37 05:37 06:03 WBC 34.5 H RBC Hgb Hct RDW Plt Count Seg Neuts % (Manual) Lymphocytes % (Manual) Seg Neutrophils # Man Lymphocytes # (Manual) Monocytes # (Manual) POC ABG pH POC ABG pCO2 Sodium Chloride BUN Creatinine 0.7 L Glucose 180 H POC Glucose 172 H Lactic Acid Phosphorus Magnesium Total Creatine Kinase CK-MB (CK-2) Triglycerides 01/25/17 01/25/17 01/25/17 09:42 13:10 17:30 WBC RBC Hgb Hct RDW Plt Count Seg Neuts % (Manual) Lymphocytes % (Manual) Seg Neutrophils # Man Lymphocytes # (Manual) Monocytes # (Manual) POC ABG pH POC ABG pCO2 Sodium Chloride BUN Creatinine Glucose POC Glucose 177 H 190 H 179 H Lactic Acid Phosphorus Magnesium Total Creatine Kinase CK-MB (CK-2) Triglycerides 01/25/17 01/26/17 01/26/17 21:25 00:00 05:23 WBC RBC Hgb Hct RDW Plt Count Seg Neuts % (Manual) Lymphocytes % (Manual) Seg Neutrophils # Man Lymphocytes # (Manual) Monocytes # (Manual) POC ABG pH POC ABG pCO2 Sodium Chloride BUN Creatinine Glucose POC Glucose 168 H 179 H 173 H Lactic Acid Phosphorus Magnesium Total Creatine Kinase CK-MB (CK-2) Triglycerides 01/26/17 01/26/17 01/26/17 05:46 05:46 05:58 WBC 30.6 H RBC Hgb Hct RDW Plt Count Seg Neuts % (Manual) 93.0 H Lymphocytes % (Manual) 5.0 L Seg Neutrophils # Man 28.5 H Lymphocytes # (Manual) Monocytes # (Manual) POC ABG pH 7.472 H POC ABG pCO2 45.8 H Sodium Chloride BUN 28 H Creatinine Glucose 187 H POC Glucose Lactic Acid Phosphorus Magnesium Total Creatine Kinase CK-MB (CK-2) Triglycerides 01/26/17 01/26/17 01/26/17 08:00 09:55 13:23 WBC RBC Hgb Hct RDW Plt Count Seg Neuts % (Manual) Lymphocytes % (Manual) Seg Neutrophils # Man Lymphocytes # (Manual) Monocytes # (Manual) POC ABG pH POC ABG pCO2 Sodium Chloride BUN Creatinine Glucose POC Glucose 162 H 191 H Lactic Acid Phosphorus Magnesium Total Creatine Kinase CK-MB (CK-2) Triglycerides 235 H 01/26/17 01/26/17 01/27/17 17:53 21:30 01:49 WBC RBC Hgb Hct RDW Plt Count Seg Neuts % (Manual) Lymphocytes % (Manual) Seg Neutrophils # Man Lymphocytes # (Manual) Monocytes # (Manual) POC ABG pH POC ABG pCO2 Sodium Chloride BUN Creatinine Glucose POC Glucose 182 H 247 H 210 H Lactic Acid Phosphorus Magnesium Total Creatine Kinase CK-MB (CK-2) Triglycerides 01/27/17 01/27/17 01/27/17 04:14 04:14 05:03 WBC RBC 3.27 L Hgb 9.4 L D Hct 29.4 L D RDW 18.2 H Plt Count 113 L Seg Neuts % (Manual) 84.0 H Lymphocytes % (Manual) 4.0 L Seg Neutrophils # Man Lymphocytes # (Manual) 0.2 L Monocytes # (Manual) POC ABG pH POC ABG pCO2 49.0 H Sodium Chloride BUN 33 H Creatinine Glucose 226 H POC Glucose Lactic Acid Phosphorus Magnesium Total Creatine Kinase CK-MB (CK-2) Triglycerides 01/27/17 05:45 WBC RBC Hgb Hct RDW Plt Count Seg Neuts % (Manual) Lymphocytes % (Manual) Seg Neutrophils # Man Lymphocytes # (Manual) Monocytes # (Manual) POC ABG pH POC ABG pCO2 Sodium Chloride BUN Creatinine Glucose POC Glucose 229 H Lactic Acid Phosphorus Magnesium Total Creatine Kinase CK-MB (CK-2) Triglycerides
--- NOTE | 2017-01-27 11:54 | Progress Note ---
Assessment and Plan Assessment and plan: Cardiopulmonary arrest. Continue supportive care. Cardiac isoenzymes negative for acute OK. EKG with no ischemic changes. Echocardiogram okay. Acute asthma exacerbation. Continue IV solu-medrol, Duoneb, Pulmicort and Brovana Acute respiratory failure due to asthma exacerbation. Cont vent management Anoxic Encephalopathy. Neurology following. 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 CT head negative. Sepsis. Present on admission. Patient with fever and significant leukocytosis. Continue IV antibiotics and follow cultures. Thrombocytopenia. Improved. DVT prophylaxis with SCDs only. Not on heparin/Lovenox because of thrombocytopenia Full code status History Interval history: No new issues overnight. Hospitalist Physical - Constitutional Vitals: Temp Pulse Resp BP Pulse Ox 99.2 F 56 L 15 130/78 96 01/27/17 08:00 01/27/17 11:30 01/27/17 11:30 01/27/17 11:30 01/27/17 11:30 General appearance: Present: other (patient is intubated.) - EENT Eyes: Present: PERRL, EOM intact ENT: hearing intact, clear oral mucosa, dentition normal - Neck Neck: Present: supple, normal ROM - Respiratory Respiratory effort: normal Respiratory: bilateral: CTA - Cardiovascular Rhythm: regular Heart Sounds: Present: S1 & S2. Absent: gallop, rub - Extremities Extremities: no ischemia, No edema, Full ROM - Abdominal General gastrointestinal: soft, non-tender, non-distended, normal bowel sounds - Integumentary Integumentary: Present: clear, warm, dry - Neurologic Neurologic: CNII-XII intact, moves all extremities Results - Labs CBC & Chem 7: 01/27/17 04:14 01/27/17 04:14 Labs: Laboratory Last Values WBC 4.7 K/mm3 (4.5-11.0) 01/27/17 04:14 RBC 3.27 M/mm3 (3.65-5.03) L 01/27/17 04:14 Hgb 9.4 gm/dl (11.8-15.2) L D 01/27/17 04:14 Hct 29.4 % (35.5-45.6) L D 01/27/17 04:14 MCV 90 fl (84-94) 01/27/17 04:14 MCH 29 pg (28-32) 01/27/17 04:14 MCHC 32 % (32-34) 01/27/17 04:14 RDW 18.2 % (13.2-15.2) H 01/27/17 04:14 Plt Count 113 K/mm3 (140-440) L 01/27/17 04:14 Lymph # Wire Basket Maker 01/23/17 04:22 Add Manual Diff Complete 01/27/17 04:14 Total Counted 100 01/27/17 04:14 Seg Neutrophils % Wire Basket Maker 01/27/17 04:14 Seg Neuts % (Manual) 84.0 % (40.0-70.0) H 01/27/17 04:14 Band Neutrophils % 8.0 % 01/27/17 04:14 Lymphocytes % (Manual) 4.0 % (13.4-35.0) L 01/27/17 04:14 Reactive Lymphs % (Man) 0 % 01/27/17 04:14 Monocytes % (Manual) 4.0 % (0.0-7.3) 01/27/17 04:14 Eosinophils % (Manual) 0 % (0.0-4.3) 01/27/17 04:14 Basophils % (Manual) 0 % (0.0-1.8) 01/27/17 04:14 Metamyelocytes % 0 % 01/27/17 04:14 Myelocytes % 0 % 01/27/17 04:14 Promyelocytes % 0 % 01/27/17 04:14 Blast Cells % 0 % 01/27/17 04:14 Nucleated RBC % Not Reportable 01/27/17 04:14 Seg Neutrophils # Man 3.9 K/mm3 (1.8-7.7) 01/27/17 04:14 Band Neutrophils # 0.4 K/mm3 01/27/17 04:14 Lymphocytes # (Manual) 0.2 K/mm3 (1.2-5.4) L 01/27/17 04:14 Abs React Lymphs (Man) 0.0 K/mm3 01/27/17 04:14 Monocytes # (Manual) 0.2 K/mm3 (0.0-0.8) 01/27/17 04:14 Eosinophils # (Manual) 0.0 K/mm3 (0.0-0.4) 01/27/17 04:14 Basophils # (Manual) 0.0 K/mm3 (0.0-0.1) 01/27/17 04:14 Metamyelocytes # 0.0 K/mm3 01/27/17 04:14 Myelocytes # 0.0 K/mm3 01/27/17 04:14 Promyelocytes # 0.0 K/mm3 01/27/17 04:14 Blast Cells # 0.0 K/mm3 01/27/17 04:14 WBC Morphology Not Reportable 01/27/17 04:14 Hypersegmented Neuts Not Reportable 01/27/17 04:14 Hyposegmented Neuts Not Reportable 01/27/17 04:14 Hypogranular Neuts Not Reportable 01/27/17 04:14 Smudge Cells Not Reportable 01/27/17 04:14 Toxic Granulation Not Reportable 01/27/17 04:14 Toxic Vacuolation Not Reportable 01/27/17 04:14 Dohle Bodies Not Reportable 01/27/17 04:14 Pelger-Huet Anomaly Not Reportable 01/27/17 04:14 Noe Rods Not Reportable 01/27/17 04:14 Platelet Estimate Consistent w auto 01/27/17 04:14 Clumped Platelets Not Reportable 01/27/17 04:14 Plt Clumps, EDTA Not Reportable 01/27/17 04:14 Large Platelets Not Reportable 01/27/17 04:14 Giant Platelets Not Reportable 01/27/17 04:14 Platelet Satelliting Not Reportable 01/27/17 04:14 Plt Morphology Comment Not Reportable 01/27/17 04:14 RBC Morphology Not Reportable 01/27/17 04:14 Dimorphic RBCs Not Reportable 01/27/17 04:14 Polychromasia Not Reportable 01/27/17 04:14 Hypochromasia Not Reportable 01/27/17 04:14 Poikilocytosis Not Reportable 01/27/17 04:14 Anisocytosis 1+ 01/27/17 04:14 Microcytosis Not Reportable 01/27/17 04:14 Macrocytosis Not Reportable 01/27/17 04:14 Spherocytes Not Reportable 01/27/17 04:14 Pappenheimer Bodies Not Reportable 01/27/17 04:14 Sickle Cells Not Reportable 01/27/17 04:14 Target Cells Not Reportable 01/27/17 04:14 Tear Drop Cells Not Reportable 01/27/17 04:14 Ovalocytes Not Reportable 01/27/17 04:14 Helmet Cells Not Reportable 01/27/17 04:14 [place] Bodies Not Reportable 01/27/17 04:14 [place] Rings Not Reportable 01/27/17 04:14 Lisa Cells Not Reportable 01/27/17 04:14 Bite Cells Not Reportable 01/27/17 04:14 Crenated Cell Not Reportable 01/27/17 04:14 Elliptocytes Not Reportable 01/27/17 04:14 Acanthocytes (Spur) Not Reportable 01/27/17 04:14 Rouleaux Not Reportable 01/27/17 04:14 Hemoglobin C Crystals Not Reportable 01/27/17 04:14 Schistocytes Rare 01/27/17 04:14 Malaria parasites Not Reportable 01/27/17 04:14 [place] Bodies Not Reportable 01/27/17 04:14 Hem Pathologist Commnt No 01/27/17 04:14 PT 13.5 Sec. (12.2-14.9) 01/23/17 04:22 INR 0.98 (0.87-1.13) 01/23/17 04:22 APTT 27.6 Sec. (24.2-36.6) 01/23/17 04:22 D-Dimer 204.60 ng/mlDDU (0-234) 01/23/17 Unknown POC ABG pH 7.417 (7.35-7.45) 01/27/17 05:03 POC ABG pCO2 49.0 (35-45) H 01/27/17 05:03 POC ABG pO2 95 (80-105) 01/27/17 05:03 POC ABG HCO3 31.6 01/27/17 05:03 POC ABG Total CO2 33 01/27/17 05:03 POC ABG O2 Sat 97 01/27/17 05:03 POC ABG Base Excess 7 01/27/17 05:03 FiO2 35 % 01/27/17 05:03 Sodium 138 mmol/L (137-145) 01/27/17 04:14 Potassium 3.8 mmol/L (3.6-5.0) 01/27/17 04:14 Chloride 100.1 mmol/L (98-107) 01/27/17 04:14 Carbon Dioxide 26 mmol/L (22-30) 01/27/17 04:14 Anion Gap 16 mmol/L 01/27/17 04:14 BUN 33 mg/dL (9-20) H 01/27/17 04:14 Creatinine 1.5 mg/dL (0.8-1.5) D 01/27/17 04:14 Estimated GFR > 60 ml/min 01/27/17 04:14 BUN/Creatinine Ratio 22.00 % 01/27/17 04:14 Glucose 226 mg/dL (75-100) H 01/27/17 04:14 POC Glucose 229 (70-105) H 01/27/17 05:45 Lactic Acid 1.80 mmol/L (0.7-2.0) 01/24/17 16:08 Calcium 8.5 mg/dL (8.4-10.2) 01/27/17 04:14 Phosphorus 2.60 mg/dL (2.5-4.5) D 01/24/17 07:31 Magnesium 3.30 mg/dL (1.7-2.3) H 01/23/17 10:24 Total Bilirubin 0.80 mg/dL (0.1-1.2) 01/25/17 05:37 AST 14 units/L (5-40) 01/25/17 05:37 ALT 26 units/L (7-56) 01/25/17 05:37 Alkaline Phosphatase 64 units/L (35-129) 01/25/17 05:37 Total Creatine Kinase 523 units/L (55-170) H 01/23/17 12:27 CK-MB (CK-2) 9.2 ng/mL (0.0-4.0) H 01/23/17 12:27 CK-MB (CK-2) Rel Index 1.7 (0-4) 01/23/17 12:27 Troponin T < 0.010 ng/mL (0.00-0.029) 01/23/17 12:27 NT-Pro-B Natriuret Pep 22.36 pg/mL (0-450) 01/23/17 04:23 Total Protein 7.9 g/dL (6.3-8.2) 01/25/17 05:37 Albumin 4.0 g/dL (3.9-5) 01/25/17 05:37 Albumin/Globulin Ratio 1.0 % 01/25/17 05:37 Triglycerides 235 mg/dL (2-149) H 01/26/17 08:00 Urine Color Yellow (Yellow) 01/23/17 Unknown Urine Turbidity Clear (Clear) 01/23/17 Unknown Urine pH 5.0 (5.0-7.0) 01/23/17 Unknown Ur Specific [place] 1.018 (1.003-1.030) 01/23/17 Unknown Urine Protein <15 mg/dl mg/dL (Negative) 01/23/17 Unknown Urine Glucose (UA) Neg mg/dL (Negative) 01/23/17 Unknown Urine Ketones Neg mg/dL (Negative) 01/23/17 Unknown Urine Blood Neg (Negative) 01/23/17 Unknown Urine Nitrite Neg (Negative) 01/23/17 Unknown Urine Bilirubin Neg (Negative) 01/23/17 Unknown Urine Urobilinogen < 2.0 mg/dL (<2.0) 01/23/17 Unknown Ur Leukocyte Esterase Neg (Negative) 01/23/17 Unknown Urine WBC (Auto) 2.0 /HPF (0.0-6.0) 01/23/17 Unknown Urine RBC (Auto) 1.0 /HPF (0.0-6.0) 01/23/17 Unknown Urine Mucus Few /HPF 01/23/17 Unknown Urine Sperm 2+ /HPF (APARTMENT LEASING SPECIALIST) 01/23/17 Unknown Urine Opiates Screen Presumptive positive 01/23/17 Unknown Urine Methadone Screen Presumptive negative 01/23/17 Unknown Ur Barbiturates Screen Presumptive positive 01/23/17 Unknown Ur Phencyclidine Scrn Presumptive negative 01/23/17 Unknown Ur Amphetamines Screen Presumptive negative 01/23/17 Unknown U Benzodiazepines Scrn Presumptive positive 01/23/17 Unknown Urine Cocaine Screen Presumptive negative 01/23/17 Unknown U Marijuana (THC) Screen Presumptive negative 01/23/17 Unknown Drugs of Abuse Note Disclamer 01/23/17 Unknown Schistocytes Smear None seen 01/26/17 09:25 Blood Type O POSITIVE 01/24/17 11:15 Antibody Screen TNR 01/24/17 11:15 HERNY Antibody Screen Negative 01/24/17 11:15
[2017-01-27] MEDS ORDERED: LEVEMIR SUB-Q SCH (12:00)
[2017-01-27] MEDS: PROTONIX FEEDTUBE SCH (13:41)
[2017-01-27] MEDS: KEPPRA PO SCH (21:21)
[2017-01-27] MEDS: TYLENOL PO PRN (23:49)
[2017-01-28] MEDS ORDERED: ATIVAN ONE (02:34)
--- NOTE | 2017-01-28 03:07 | Event Note ---
Date: 01/28/17 Patient was noted by the nurse on duty to be having jerky movement of the body and also movement without attempts to pull out the endotracheal tube. Patient was also vomiting, the head of the bed was raised up and patient given 1 mg of Ativan IV and 4 mg of Zofran IV but he continue to jerk despite 1 mg of Ativan given. Patient was subsequently started on IV propofol for by propofol for sedation so as tocalm patient down and prevent him from putting out the ET tube. patient finally settled down after the IV propofol was started.
[2017-01-28] MEDS: ZOFRAN IV PRN (03:33)
[2017-01-28] MEDS: DIPRIVAN 10 MG/ML 1,000 MG/100 ML BOTTLE IV SCH (03:33)
[2017-01-28 05:27] LABS: ISTAT Base Excess 4; ISTAT HCO3 29.1; ISTAT PCO2 47.4 (35-45); ISTAT PH 7.397 (7.35-7.45); ISTAT PO2 112 (80-105); ISTAT SO2 98; ISTAT TCO2 31
[2017-01-28 06:05] LABS: BUN/Creatinine Ratio 54.28; Blood Urea Nitrogen 38 mg/dL (9-20); Calcium 9.2 mg/dL (8.4-10.2); Carbon Dioxide 33 mmol/L (22-30); Glucose 270 mg/dL (75-100); Potassium 4.8 mmol/L (3.6-5.0); Sodium 143 mmol/L (137-145)
[2017-01-28 06:09] LABS: Anion Gap 14 mmol/L
--- NOTE | 2017-01-28 07:11 | Progress Note ---
Assessment and Plan 36 y/o male with acute respiratory failure, thought secondary to asthma exacerbation. 1. Decrease roids to daily starting today. 2. Continue Pulmicort and brovana 3. continue scheduled short acting nebs 4. Will add back versed prn and continue haldol prn. Will stop diprivan drip again. 5. DVT and GI prophylaxis 6. Repeat KUB this am, abdomen is soft but had more vomiting, no residuals per nursing. 7. Still would recommend heme consult. Will order today, pending results of CBC. had a large drop in hemoglobin and hematocrit with increase in BUN. If the CBC is the same from yesterday, will order heme consult, GI consult and start on BID PPI as there is not active or visible evidence of bleeding. CCT 31 minutes. Subjective Date of service: 01/28/17 Principal diagnosis: s/p cardiopulmonary arrest Interval history: Reviewed chart and discussed with nursing. last evening, early this am patient started with jerking movements again. Of note an EEG has been obtained and this is not consistent with seizure activity. Patient had been off of medication/sedation all day yesterday and the evening before without these movements. IMS called and gave patient ativan, 1 mg with no improvement. Then started back on propofol. This am, sedated, no family at bedside. Objective Vital Signs - 12hr 01/27/17 01/27/17 01/27/17 19:30 19:33 19:39 Temperature Pulse Rate 60 60 Pulse Rate [ 62 Anterior Throughout] Respiratory 14 Rate Respiratory 17 Rate [Anterior Throughout] Blood Pressure 130/75 132/74 O2 Sat by Pulse 95 95 Oximetry 01/27/17 01/27/17 01/27/17 19:43 19:48 20:00 Temperature 99.1 F Pulse Rate 63 Pulse Rate [ 66 Anterior Throughout] Respiratory 15 Rate Respiratory 18 Rate [Anterior Throughout] Blood Pressure 128/73 O2 Sat by Pulse 97 Oximetry 01/27/17 01/27/17 01/27/17 20:30 21:01 21:30 Temperature Pulse Rate 65 63 53 L Pulse Rate [ Anterior Throughout] Respiratory 14 28 H 17 Rate Respiratory Rate [Anterior Throughout] Blood Pressure 129/61 130/61 124/66 O2 Sat by Pulse 96 Oximetry 01/27/17 01/27/17 01/27/17 22:00 22:01 22:31 Temperature Pulse Rate 65 62 72 Pulse Rate [ Anterior Throughout] Respiratory 16 30 H Rate Respiratory Rate [Anterior Throughout] Blood Pressure 127/67 117/60 O2 Sat by Pulse Oximetry 01/27/17 01/27/17 01/27/17 23:00 23:07 23:30 Temperature Pulse Rate 57 L 62 66 Pulse Rate [ Anterior Throughout] Respiratory 17 18 14 Rate Respiratory Rate [Anterior Throughout] Blood Pressure 116/68 116/68 126/74 O2 Sat by Pulse 96 96 96 Oximetry 01/27/17 01/27/17 01/28/17 23:44 23:53 00:00 Temperature 100.4 F H Pulse Rate 63 57 L Pulse Rate [ Anterior Throughout] Respiratory 15 Rate Respiratory Rate [Anterior Throughout] Blood Pressure 126/74 120/62 O2 Sat by Pulse 96 97 Oximetry 01/28/17 01/28/17 01/28/17 00:30 01:00 01:30 Temperature Pulse Rate 66 66 54 L Pulse Rate [ Anterior Throughout] Respiratory 16 18 15 Rate Respiratory Rate [Anterior Throughout] Blood Pressure 119/72 133/67 132/75 O2 Sat by Pulse 97 96 97 Oximetry 01/28/17 01/28/17 01/28/17 02:00 02:30 03:01 Temperature Pulse Rate 63 86 62 Pulse Rate [ Anterior Throughout] Respiratory 13 16 13 Rate Respiratory Rate [Anterior Throughout] Blood Pressure 137/78 166/91 166/91 O2 Sat by Pulse 95 96 96 Oximetry 01/28/17 01/28/17 01/28/17 03:29 03:30 03:50 Temperature 99 F Pulse Rate 72 66 Pulse Rate [ Anterior Throughout] Respiratory 15 Rate Respiratory Rate [Anterior Throughout] Blood Pressure 128/81 127/78 O2 Sat by Pulse 97 96 Oximetry 01/28/17 01/28/17 01/28/17 04:00 04:30 05:00 Temperature Pulse Rate 58 L 60 75 Pulse Rate [ Anterior Throughout] Respiratory 17 15 16 Rate Respiratory Rate [Anterior Throughout] Blood Pressure 123/72 109/68 123/73 O2 Sat by Pulse 97 97 96 Oximetry 01/28/17 01/28/17 01/28/17 05:30 06:00 06:30 Temperature Pulse Rate 65 64 65 Pulse Rate [ Anterior Throughout] Respiratory 16 16 15 Rate Respiratory Rate [Anterior Throughout] Blood Pressure 108/64 111/67 124/80 O2 Sat by Pulse 97 97 96 Oximetry Constitutional: no acute distress, comatose (secondary to medications) Eyes: non-icteric ENT: other (orally intubated sedated) Neck: supple Effort: mildly labored Ascultation: Bilateral: clear Percussion: Bilateral: not dull Cardiovascular: regular rate and rhythm (but sinus tach) Gastrointestinal: normoactive bowel sounds, soft, non-distended Integumentary: normal Extremities: no cyanosis, no edema, pink and warm, pulses normal CBC and BMP: 01/27/17 04:14 01/28/17 05:17 ABG, PT/INR, D-dimer: ABG POC ABG pH 7.397 (7.35-7.45) 01/28/17 04:43 POC ABG pCO2 47.4 (35-45) H 01/28/17 04:43 POC ABG pO2 112 (80-105) H 01/28/17 04:43 POC ABG HCO3 29.1 01/28/17 04:43 POC ABG Total CO2 31 01/28/17 04:43 POC ABG O2 Sat 98 01/28/17 04:43 PT/INR, D-dimer PT 13.5 Sec. (12.2-14.9) 01/23/17 04:22 INR 0.98 (0.87-1.13) 01/23/17 04:22 D-Dimer 204.60 ng/mlDDU (0-234) 01/23/17 Unknown Abnormal lab findings: Abnormal Labs 01/23/17 01/23/17 01/23/17 07:37 10:24 12:27 WBC RBC Hgb Hct RDW Plt Count Seg Neuts % (Manual) Lymphocytes % (Manual) Seg Neutrophils # Man Lymphocytes # (Manual) Monocytes # (Manual) POC ABG pH POC ABG pCO2 POC ABG pO2 Sodium Chloride Carbon Dioxide BUN Creatinine Glucose POC Glucose Lactic Acid Phosphorus Magnesium 3.30 H Total Creatine Kinase 503 H 523 H CK-MB (CK-2) 6.9 H 9.2 H Triglycerides 01/23/17 01/23/17 01/23/17 12:27 16:50 21:21 WBC RBC Hgb Hct RDW Plt Count Seg Neuts % (Manual) Lymphocytes % (Manual) Seg Neutrophils # Man Lymphocytes # (Manual) Monocytes # (Manual) POC ABG pH POC ABG pCO2 POC ABG pO2 Sodium Chloride Carbon Dioxide BUN Creatinine Glucose POC Glucose 166 H 158 H Lactic Acid Phosphorus 1.30 L Magnesium Total Creatine Kinase CK-MB (CK-2) Triglycerides 01/24/17 01/24/17 01/24/17 01:49 03:38 03:38 WBC 24.7 H RBC Hgb Hct RDW Plt Count 45 L Seg Neuts % (Manual) 77.0 H Lymphocytes % (Manual) 6.0 L Seg Neutrophils # Man 19.0 H Lymphocytes # (Manual) Monocytes # (Manual) 1.5 H POC ABG pH POC ABG pCO2 POC ABG pO2 Sodium 136 L D Chloride 97.3 L Carbon Dioxide BUN Creatinine 0.7 L Glucose 197 H POC Glucose 183 H Lactic Acid Phosphorus Magnesium Total Creatine Kinase CK-MB (CK-2) Triglycerides 01/24/17 01/24/17 01/24/17 04:46 05:04 09:00 WBC RBC Hgb Hct RDW Plt Count Seg Neuts % (Manual) Lymphocytes % (Manual) Seg Neutrophils # Man Lymphocytes # (Manual) Monocytes # (Manual) POC ABG pH 7.472 H POC ABG pCO2 POC ABG pO2 Sodium Chloride Carbon Dioxide BUN Creatinine Glucose POC Glucose 193 H 220 H Lactic Acid Phosphorus Magnesium Total Creatine Kinase CK-MB (CK-2) Triglycerides 01/24/17 01/24/17 01/24/17 12:26 14:07 18:00 WBC RBC Hgb Hct RDW Plt Count Seg Neuts % (Manual) Lymphocytes % (Manual) Seg Neutrophils # Man Lymphocytes # (Manual) Monocytes # (Manual) POC ABG pH POC ABG pCO2 POC ABG pO2 Sodium Chloride Carbon Dioxide BUN Creatinine Glucose POC Glucose 194 H 163 H Lactic Acid 2.30 H* Phosphorus Magnesium Total Creatine Kinase CK-MB (CK-2) Triglycerides 01/24/17 01/25/17 01/25/17 22:39 02:20 04:36 WBC RBC Hgb Hct RDW Plt Count Seg Neuts % (Manual) Lymphocytes % (Manual) Seg Neutrophils # Man Lymphocytes # (Manual) Monocytes # (Manual) POC ABG pH POC ABG pCO2 46.7 H POC ABG pO2 Sodium Chloride Carbon Dioxide BUN Creatinine Glucose POC Glucose 215 H 194 H Lactic Acid Phosphorus Magnesium Total Creatine Kinase CK-MB (CK-2) Triglycerides 01/25/17 01/25/17 01/25/17 05:37 05:37 06:03 WBC 34.5 H RBC Hgb Hct RDW Plt Count Seg Neuts % (Manual) Lymphocytes % (Manual) Seg Neutrophils # Man Lymphocytes # (Manual) Monocytes # (Manual) POC ABG pH POC ABG pCO2 POC ABG pO2 Sodium Chloride Carbon Dioxide BUN Creatinine 0.7 L Glucose 180 H POC Glucose 172 H Lactic Acid Phosphorus Magnesium Total Creatine Kinase CK-MB (CK-2) Triglycerides 01/25/17 01/25/17 01/25/17 09:42 13:10 17:30 WBC RBC Hgb Hct RDW Plt Count Seg Neuts % (Manual) Lymphocytes % (Manual) Seg Neutrophils # Man Lymphocytes # (Manual) Monocytes # (Manual) POC ABG pH POC ABG pCO2 POC ABG pO2 Sodium Chloride Carbon Dioxide BUN Creatinine Glucose POC Glucose 177 H 190 H 179 H Lactic Acid Phosphorus Magnesium Total Creatine Kinase CK-MB (CK-2) Triglycerides 01/25/17 01/26/17 01/26/17 21:25 00:00 05:23 WBC RBC Hgb Hct RDW Plt Count Seg Neuts % (Manual) Lymphocytes % (Manual) Seg Neutrophils # Man Lymphocytes # (Manual) Monocytes # (Manual) POC ABG pH POC ABG pCO2 POC ABG pO2 Sodium Chloride Carbon Dioxide BUN Creatinine Glucose POC Glucose 168 H 179 H 173 H Lactic Acid Phosphorus Magnesium Total Creatine Kinase CK-MB (CK-2) Triglycerides 01/26/17 01/26/17 01/26/17 05:46 05:46 05:58 WBC 30.6 H RBC Hgb Hct RDW Plt Count Seg Neuts % (Manual) 93.0 H Lymphocytes % (Manual) 5.0 L Seg Neutrophils # Man 28.5 H Lymphocytes # (Manual) Monocytes # (Manual) POC ABG pH 7.472 H POC ABG pCO2 45.8 H POC ABG pO2 Sodium Chloride Carbon Dioxide BUN 28 H Creatinine Glucose 187 H POC Glucose Lactic Acid Phosphorus Magnesium Total Creatine Kinase CK-MB (CK-2) Triglycerides 01/26/17 01/26/17 01/26/17 08:00 09:55 13:23 WBC RBC Hgb Hct RDW Plt Count Seg Neuts % (Manual) Lymphocytes % (Manual) Seg Neutrophils # Man Lymphocytes # (Manual) Monocytes # (Manual) POC ABG pH POC ABG pCO2 POC ABG pO2 Sodium Chloride Carbon Dioxide BUN Creatinine Glucose POC Glucose 162 H 191 H Lactic Acid Phosphorus Magnesium Total Creatine Kinase CK-MB (CK-2) Triglycerides 235 H 01/26/17 01/26/17 01/27/17 17:53 21:30 01:49 WBC RBC Hgb Hct RDW Plt Count Seg Neuts % (Manual) Lymphocytes % (Manual) Seg Neutrophils # Man Lymphocytes # (Manual) Monocytes # (Manual) POC ABG pH POC ABG pCO2 POC ABG pO2 Sodium Chloride Carbon Dioxide BUN Creatinine Glucose POC Glucose 182 H 247 H 210 H Lactic Acid Phosphorus Magnesium Total Creatine Kinase CK-MB (CK-2) Triglycerides 01/27/17 01/27/17 01/27/17 04:14 04:14 05:03 WBC RBC 3.27 L Hgb 9.4 L D Hct 29.4 L D RDW 18.2 H Plt Count 113 L Seg Neuts % (Manual) 84.0 H Lymphocytes % (Manual) 4.0 L Seg Neutrophils # Man Lymphocytes # (Manual) 0.2 L Monocytes # (Manual) POC ABG pH POC ABG pCO2 49.0 H POC ABG pO2 Sodium Chloride Carbon Dioxide BUN 33 H Creatinine Glucose 226 H POC Glucose Lactic Acid Phosphorus Magnesium Total Creatine Kinase CK-MB (CK-2) Triglycerides 01/27/17 01/27/17 01/27/17 05:45 09:59 14:42 WBC RBC Hgb Hct RDW Plt Count Seg Neuts % (Manual) Lymphocytes % (Manual) Seg Neutrophils # Man Lymphocytes # (Manual) Monocytes # (Manual) POC ABG pH POC ABG pCO2 POC ABG pO2 Sodium Chloride Carbon Dioxide BUN Creatinine Glucose POC Glucose 229 H 266 H 257 H Lactic Acid Phosphorus Magnesium Total Creatine Kinase CK-MB (CK-2) Triglycerides 01/27/17 01/27/17 01/28/17 17:28 21:54 02:00 WBC RBC Hgb Hct RDW Plt Count Seg Neuts % (Manual) Lymphocytes % (Manual) Seg Neutrophils # Man Lymphocytes # (Manual) Monocytes # (Manual) POC ABG pH POC ABG pCO2 POC ABG pO2 Sodium Chloride Carbon Dioxide BUN Creatinine Glucose POC Glucose 236 H 254 H 288 H Lactic Acid Phosphorus Magnesium Total Creatine Kinase CK-MB (CK-2) Triglycerides 01/28/17 01/28/17 01/28/17 04:43 05:17 05:18 WBC RBC Hgb Hct RDW Plt Count Seg Neuts % (Manual) Lymphocytes % (Manual) Seg Neutrophils # Man Lymphocytes # (Manual) Monocytes # (Manual) POC ABG pH POC ABG pCO2 47.4 H POC ABG pO2 112 H Sodium Chloride Carbon Dioxide 33 H D BUN 38 H Creatinine 0.7 L D Glucose 270 H POC Glucose 198 H Lactic Acid Phosphorus Magnesium Total Creatine Kinase CK-MB (CK-2) Triglycerides
--- NOTE | 2017-01-28 07:21 | XRay Report ---
Single view chest: Compared to 01/27/17. History: Followup of respiratory failure. Findings: Normal cardiomediastinal silhouette. Trachea is midline. No consolidation, pneumothorax or pleural effusion. Impression: No acute cardiopulmonary findings.
[2017-01-28] MEDS: PULMICORT IH SCH ×2 (08:43→20:22)
[2017-01-28] MEDS: BROVANA NEBU IH SCH ×2 (08:43→20:22)
[2017-01-28 09:17] LABS: Mean Corpuscular HGB Conc 32 % (32-34); Mean Corpuscular Hemoglobin 30 pg (28-32); Mean Corpuscular Volume 92 fl (84-94); Red Blood Count 4.91 M/mm3 (3.65-5.03); Red Cell Distribution Width 14.1 % (13.2-15.2)
[2017-01-28 09:26] LABS: Platelet Count 237 K/mm3 (140-440)
[2017-01-28 09:28] LABS: Hemoglobin 14.5 gm/dl (11.8-15.2)
[2017-01-28] MEDS: VITAMIN B-1 PO SCH (09:44)
[2017-01-28] MEDS: LEVEMIR SUB-Q SCH (09:44)
[2017-01-28] MEDS: KEPPRA PO SCH ×2 (09:44→21:57)
[2017-01-28] MEDS: PROTONIX FEEDTUBE SCH (09:44)
[2017-01-28] MEDS: FOLVITE PO SCH (09:44)
--- NOTE | 2017-01-28 12:10 | Progress Note ---
Assessment and Plan Assessment and plan: Cardiopulmonary arrest. Continue supportive care. Cardiac isoenzymes negative for acute VA. EKG with no ischemic changes. Echocardiogram okay. Acute asthma exacerbation. Continue IV solu-medrol, Duoneb, Pulmicort and Brovana. Pulmonology to decrease steroids today. Acute respiratory failure due to asthma exacerbation. Cont vent management Anoxic Encephalopathy. Neurology following. 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 CT head negative. Continue Haldol. Sepsis. Present on admission. Patient with fever and significant leukocytosis. Continue IV antibiotics and follow cultures. Anemia. ? Lab error. Consider hematology GI consultations. Thrombocytopenia. Improved. Nausea/vomiting. Check KUB to rule out obstruction/ileus DVT prophylaxis with SCDs only. Not on heparin/Lovenox because of thrombocytopenia Full code status History Interval history: No new issues overnight. Hospitalist Physical - Constitutional Vitals: Temp Pulse Resp BP Pulse Ox 99.1 F 85 17 112/70 97 01/28/17 08:00 01/28/17 11:13 01/28/17 11:00 01/28/17 11:13 01/28/17 11:13 General appearance: Present: other (patient is intubated.) - EENT Eyes: Present: PERRL, EOM intact ENT: hearing intact, clear oral mucosa, dentition normal - Neck Neck: Present: supple, normal ROM - Respiratory Respiratory effort: normal Respiratory: bilateral: CTA - Cardiovascular Rhythm: regular Heart Sounds: Present: S1 & S2. Absent: gallop, rub - Extremities Extremities: no ischemia, No edema, Full ROM - Abdominal General gastrointestinal: soft, non-tender, non-distended, normal bowel sounds - Integumentary Integumentary: Present: clear, warm, dry - Neurologic Neurologic: CNII-XII intact, moves all extremities Results - Labs CBC & Chem 7: 01/28/17 07:06 01/28/17 05:17 Labs: Laboratory Last Values WBC 31.0 K/mm3 (4.5-11.0) H 01/28/17 07:06 RBC 4.91 M/mm3 (3.65-5.03) 01/28/17 07:06 Hgb 14.5 gm/dl (11.8-15.2) D 01/28/17 07:06 Hct 45.0 % (35.5-45.6) D 01/28/17 07:06 MCV 92 fl (84-94) 01/28/17 07:06 MCH 30 pg (28-32) 01/28/17 07:06 MCHC 32 % (32-34) 01/28/17 07:06 RDW 14.1 % (13.2-15.2) 01/28/17 07:06 Plt Count 237 K/mm3 (140-440) D 01/28/17 07:06 Lymph # [employer] 01/23/17 04:22 Add Manual Diff Complete 01/27/17 04:14 Total Counted 100 01/27/17 04:14 Seg Neutrophils % [employer] 01/27/17 04:14 Seg Neuts % (Manual) 84.0 % (40.0-70.0) H 01/27/17 04:14 Band Neutrophils % 8.0 % 01/27/17 04:14 Lymphocytes % (Manual) 4.0 % (13.4-35.0) L 01/27/17 04:14 Reactive Lymphs % (Man) 0 % 01/27/17 04:14 Monocytes % (Manual) 4.0 % (0.0-7.3) 01/27/17 04:14 Eosinophils % (Manual) 0 % (0.0-4.3) 01/27/17 04:14 Basophils % (Manual) 0 % (0.0-1.8) 01/27/17 04:14 Metamyelocytes % 0 % 01/27/17 04:14 Myelocytes % 0 % 01/27/17 04:14 Promyelocytes % 0 % 01/27/17 04:14 Blast Cells % 0 % 01/27/17 04:14 Nucleated RBC % Not Reportable 01/27/17 04:14 Seg Neutrophils # Man 3.9 K/mm3 (1.8-7.7) 01/27/17 04:14 Band Neutrophils # 0.4 K/mm3 01/27/17 04:14 Lymphocytes # (Manual) 0.2 K/mm3 (1.2-5.4) L 01/27/17 04:14 Abs React Lymphs (Man) 0.0 K/mm3 01/27/17 04:14 Monocytes # (Manual) 0.2 K/mm3 (0.0-0.8) 01/27/17 04:14 Eosinophils # (Manual) 0.0 K/mm3 (0.0-0.4) 01/27/17 04:14 Basophils # (Manual) 0.0 K/mm3 (0.0-0.1) 01/27/17 04:14 Metamyelocytes # 0.0 K/mm3 01/27/17 04:14 Myelocytes # 0.0 K/mm3 01/27/17 04:14 Promyelocytes # 0.0 K/mm3 01/27/17 04:14 Blast Cells # 0.0 K/mm3 01/27/17 04:14 WBC Morphology Not Reportable 01/27/17 04:14 Hypersegmented Neuts Not Reportable 01/27/17 04:14 Hyposegmented Neuts Not Reportable 01/27/17 04:14 Hypogranular Neuts Not Reportable 01/27/17 04:14 Smudge Cells Not Reportable 01/27/17 04:14 Toxic Granulation Not Reportable 01/27/17 04:14 Toxic Vacuolation Not Reportable 01/27/17 04:14 Dohle Bodies Not Reportable 01/27/17 04:14 Pelger-Huet Anomaly Not Reportable 01/27/17 04:14 Noe Rods Not Reportable 01/27/17 04:14 Platelet Estimate Consistent w auto 01/27/17 04:14 Clumped Platelets Not Reportable 01/27/17 04:14 Plt Clumps, EDTA Not Reportable 01/27/17 04:14 Large Platelets Not Reportable 01/27/17 04:14 Giant Platelets Not Reportable 01/27/17 04:14 Platelet Satelliting Not Reportable 01/27/17 04:14 Plt Morphology Comment Not Reportable 01/27/17 04:14 RBC Morphology Not Reportable 01/27/17 04:14 Dimorphic RBCs Not Reportable 01/27/17 04:14 Polychromasia Not Reportable 01/27/17 04:14 Hypochromasia Not Reportable 01/27/17 04:14 Poikilocytosis Not Reportable 01/27/17 04:14 Anisocytosis 1+ 01/27/17 04:14 Microcytosis Not Reportable 01/27/17 04:14 Macrocytosis Not Reportable 01/27/17 04:14 Spherocytes Not Reportable 01/27/17 04:14 Pappenheimer Bodies Not Reportable 01/27/17 04:14 Sickle Cells Not Reportable 01/27/17 04:14 Target Cells Not Reportable 01/27/17 04:14 Tear Drop Cells Not Reportable 01/27/17 04:14 Ovalocytes Not Reportable 01/27/17 04:14 Helmet Cells Not Reportable 01/27/17 04:14 [place] Bodies Not Reportable 01/27/17 04:14 [place] Rings Not Reportable 01/27/17 04:14 [place] Cells Not Reportable 01/27/17 04:14 Bite Cells Not Reportable 01/27/17 04:14 Crenated Cell Not Reportable 01/27/17 04:14 Elliptocytes Not Reportable 01/27/17 04:14 Acanthocytes (Spur) Not Reportable 01/27/17 04:14 Rouleaux Not Reportable 01/27/17 04:14 Hemoglobin C Crystals Not Reportable 01/27/17 04:14 Schistocytes Rare 01/27/17 04:14 Malaria parasites Not Reportable 01/27/17 04:14 Luis Carlos Bodies Not Reportable 01/27/17 04:14 Hem Pathologist Commnt No 01/27/17 04:14 PT 13.5 Sec. (12.2-14.9) 01/23/17 04:22 INR 0.98 (0.87-1.13) 01/23/17 04:22 APTT 27.6 Sec. (24.2-36.6) 01/23/17 04:22 D-Dimer 204.60 ng/mlDDU (0-234) 01/23/17 Unknown POC ABG pH 7.397 (7.35-7.45) 01/28/17 04:43 POC ABG pCO2 47.4 (35-45) H 01/28/17 04:43 POC ABG pO2 112 (80-105) H 01/28/17 04:43 POC ABG HCO3 29.1 01/28/17 04:43 POC ABG Total CO2 31 01/28/17 04:43 POC ABG O2 Sat 98 01/28/17 04:43 POC ABG Base Excess 4 01/28/17 04:43 FiO2 35 % 01/28/17 04:43 Sodium 143 mmol/L (137-145) 01/28/17 05:17 Potassium 4.8 mmol/L (3.6-5.0) D 01/28/17 05:17 Chloride 101.0 mmol/L (98-107) 01/28/17 05:17 Carbon Dioxide 33 mmol/L (22-30) H D 01/28/17 05:17 Anion Gap 14 mmol/L 01/28/17 05:17 BUN 38 mg/dL (9-20) H 01/28/17 05:17 Creatinine 0.7 mg/dL (0.8-1.5) L D 01/28/17 05:17 Estimated GFR > 60 ml/min 01/28/17 05:17 BUN/Creatinine Ratio 54.28 % 01/28/17 05:17 Glucose 270 mg/dL (75-100) H 01/28/17 05:17 POC Glucose 247 (70-105) H 01/28/17 10:11 Lactic Acid 1.80 mmol/L (0.7-2.0) 01/24/17 16:08 Calcium 9.2 mg/dL (8.4-10.2) 01/28/17 05:17 Phosphorus 2.60 mg/dL (2.5-4.5) D 01/24/17 07:31 Magnesium 3.30 mg/dL (1.7-2.3) H 01/23/17 10:24 Total Bilirubin 0.80 mg/dL (0.1-1.2) 01/25/17 05:37 AST 14 units/L (5-40) 01/25/17 05:37 ALT 26 units/L (7-56) 01/25/17 05:37 Alkaline Phosphatase 64 units/L (35-129) 01/25/17 05:37 Total Creatine Kinase 523 units/L (55-170) H 01/23/17 12:27 CK-MB (CK-2) 9.2 ng/mL (0.0-4.0) H 01/23/17 12:27 CK-MB (CK-2) Rel Index 1.7 (0-4) 01/23/17 12:27 Troponin T < 0.010 ng/mL (0.00-0.029) 01/23/17 12:27 NT-Pro-B Natriuret Pep 22.36 pg/mL (0-450) 01/23/17 04:23 Total Protein 7.9 g/dL (6.3-8.2) 01/25/17 05:37 Albumin 4.0 g/dL (3.9-5) 01/25/17 05:37 Albumin/Globulin Ratio 1.0 % 01/25/17 05:37 Triglycerides 235 mg/dL (2-149) H 01/26/17 08:00 Urine Color Yellow (Yellow) 01/23/17 Unknown Urine Turbidity Clear (Clear) 01/23/17 Unknown Urine pH 5.0 (5.0-7.0) 01/23/17 Unknown Ur Specific [place] 1.018 (1.003-1.030) 01/23/17 Unknown Urine Protein <15 mg/dl mg/dL (Negative) 01/23/17 Unknown Urine Glucose (UA) Neg mg/dL (Negative) 01/23/17 Unknown Urine Ketones Neg mg/dL (Negative) 01/23/17 Unknown Urine Blood Neg (Negative) 01/23/17 Unknown Urine Nitrite Neg (Negative) 01/23/17 Unknown Urine Bilirubin Neg (Negative) 01/23/17 Unknown Urine Urobilinogen < 2.0 mg/dL (<2.0) 01/23/17 Unknown Ur Leukocyte Esterase Neg (Negative) 01/23/17 Unknown Urine WBC (Auto) 2.0 /HPF (0.0-6.0) 01/23/17 Unknown Urine RBC (Auto) 1.0 /HPF (0.0-6.0) 01/23/17 Unknown Urine Mucus Few /HPF 01/23/17 Unknown Urine Sperm 2+ /HPF (TOP DISTRIBUTION EXECUTIVE) 01/23/17 Unknown Urine Opiates Screen Presumptive positive 01/23/17 Unknown Urine Methadone Screen Presumptive negative 01/23/17 Unknown Ur Barbiturates Screen Presumptive positive 01/23/17 Unknown Ur Phencyclidine Scrn Presumptive negative 01/23/17 Unknown Ur Amphetamines Screen Presumptive negative 01/23/17 Unknown U Benzodiazepines Scrn Presumptive positive 01/23/17 Unknown Urine Cocaine Screen Presumptive negative 01/23/17 Unknown U Marijuana (THC) Screen Presumptive negative 01/23/17 Unknown Drugs of Abuse Note Disclamer 01/23/17 Unknown Schistocytes Smear None seen 01/26/17 09:25 Blood Type O POSITIVE 01/24/17 11:15 Antibody Screen TNR 01/24/17 11:15 HENRY Antibody Screen Negative 01/24/17 11:15
[2017-01-28 12:23] LABS: Basophils % (Manual) 0 % (0.0-1.8); Blastocytes % (Manual) 0 %; Eosinophils % (Manual) 0 % (0.0-4.3); Total Cells Counted Percent 6.5
[2017-01-28 12:24] LABS: Anisocytosis 1+; Platelet Estimate Consistent w Auto
[2017-01-28 12:25] LABS: Diff Status Complete; Platelet Clumps 3+
[2017-01-28] MEDS: ATIVAN IV PRN ×3 (15:09→21:59)
[2017-01-28] MEDS: TYLENOL PO PRN (16:52)
[2017-01-28] MEDS: HALDOL IV PRN (16:53)
[2017-01-29] MEDS: ATIVAN IV PRN ×3 (03:24→18:06)
[2017-01-29] MEDS: HALDOL IV PRN (03:54)
[2017-01-29 04:32] LABS: ISTAT Base Excess 11; ISTAT HCO3 34.6; ISTAT PCO2 49.3 (35-45); ISTAT PH 7.454 (7.35-7.45); ISTAT PO2 96 (80-105); ISTAT SO2 98; ISTAT TCO2 36
[2017-01-29 05:19] LABS: Hematocrit 44.7 % (35.5-45.6); Hemoglobin 14.8 gm/dl (11.8-15.2); Mean Corpuscular HGB Conc 33 % (32-34); Mean Corpuscular Hemoglobin 30 pg (28-32); Mean Corpuscular Volume 91 fl (84-94); Red Blood Count 4.91 M/mm3 (3.65-5.03); Red Cell Distribution Width 14.1 % (13.2-15.2)
[2017-01-29 05:35] LABS: Anion Gap 20 mmol/L; BUN/Creatinine Ratio 36.25; Blood Urea Nitrogen 29 mg/dL (9-20); Calcium 9.4 mg/dL (8.4-10.2); Carbon Dioxide 29 mmol/L (22-30); Chloride 104.4 mmol/L (98-107); Glucose 164 mg/dL (75-100); Potassium 4.4 mmol/L (3.6-5.0); Sodium 149 mmol/L (137-145)
[2017-01-29 05:37] LABS: White Blood Count 29.7 K/mm3 (4.5-11.0)
[2017-01-29] MEDS: PULMICORT IH SCH ×2 (07:41→20:00)
[2017-01-29] MEDS: BROVANA NEBU IH SCH ×2 (07:41→20:00)
[2017-01-29 07:42] LABS: Basophils % (Manual) 0 % (0.0-1.8); Blastocytes % (Manual) 0 %; Eosinophils % (Manual) 0 % (0.0-4.3); Nucleated Red Blood Cells 0.5 % (0.0-0.9); Total Cells Counted Percent 8.5
[2017-01-29 07:43] LABS: EDTA Platelet Clumps 3+
[2017-01-29 07:44] LABS: Diff Status Complete; RBC Morphology Normal
[2017-01-29 09:16] LABS: Eosinophils % (Auto) 0.1 % (0.0-4.3)
--- NOTE | 2017-01-29 09:17 | XRay Report ---
Single view chest: Compared to 01/28/17. History: Follow up of respiratory failure. Findings Normal cardiomediastinal silhouette. Trachea is midline. No consolidation, pneumothorax or pleural effusion. Impression: No acute cardiopulmonary findings.
[2017-01-29] MEDS: KEPPRA PO SCH ×2 (09:44→21:54)
[2017-01-29] MEDS: VITAMIN B-1 PO SCH (09:45)
[2017-01-29] MEDS: PROTONIX FEEDTUBE SCH (09:45)
[2017-01-29] MEDS: FOLVITE PO SCH (09:45)
[2017-01-29] MEDS: LEVEMIR SUB-Q SCH (09:45)
[2017-01-29 10:04] LABS: Platelet Count 198 K/mm3 (140-440)
--- NOTE | 2017-01-29 10:38 | Progress Note ---
Assessment and Plan Assessment and plan: Cardiopulmonary arrest. Continue supportive care. Cardiac isoenzymes negative for acute CO. EKG with no ischemic changes. Echocardiogram okay. Acute asthma exacerbation. Continue IV solu-medrol, Duoneb, Pulmicort and Brovana. Acute respiratory failure due to asthma exacerbation. Cont vent management Anoxic Encephalopathy. Neurology following. 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 CT head negative. Continue Haldol. Sepsis. Patient still with a significant leukocytosis. Continue IV antibiotics and follow cultures. Thrombocytopenia. Improved. DVT prophylaxis with SCDs only. Not on heparin/Lovenox because of thrombocytopenia Full code status History Interval history: No new issues overnight. Hospitalist Physical - Constitutional Vitals: Temp Pulse Resp BP Pulse Ox 100.8 F H 113 H 16 110/69 97 01/29/17 08:00 01/29/17 10:00 01/29/17 09:31 01/29/17 09:31 01/29/17 09:31 General appearance: Present: other (patient is intubated.) - EENT Eyes: Present: PERRL, EOM intact ENT: hearing intact, clear oral mucosa, dentition normal - Neck Neck: Present: supple, normal ROM - Respiratory Respiratory effort: normal Respiratory: bilateral: CTA - Cardiovascular Rhythm: regular Heart Sounds: Present: S1 & S2. Absent: gallop, rub - Extremities Extremities: no ischemia, No edema, Full ROM - Abdominal General gastrointestinal: soft, non-tender, non-distended, normal bowel sounds - Integumentary Integumentary: Present: clear, warm, dry - Neurologic Neurologic: CNII-XII intact, moves all extremities Results - Labs CBC & Chem 7: 01/29/17 04:04 01/29/17 04:04 Labs: Laboratory Last Values WBC 29.7 K/mm3 (4.5-11.0) H 01/29/17 04:04 RBC 4.91 M/mm3 (3.65-5.03) 01/29/17 04:04 Hgb 14.8 gm/dl (11.8-15.2) 01/29/17 04:04 Hct 44.7 % (35.5-45.6) 01/29/17 04:04 MCV 91 fl (84-94) 01/29/17 04:04 MCH 30 pg (28-32) 01/29/17 04:04 MCHC 33 % (32-34) 01/29/17 04:04 RDW 14.1 % (13.2-15.2) 01/29/17 04:04 Plt Count 198 K/mm3 (140-440) 01/29/17 04:04 [place] % (Auto) 10.3 % (0.0-7.3) H 01/29/17 04:04 Eos % (Auto) 0.1 % (0.0-4.3) 01/29/17 04:04 Lymph # Cad Detailer 01/23/17 04:22 [place] # 3.5 K/mm3 (0.0-0.8) H 01/29/17 04:04 Eos # 0.0 K/mm3 (0.0-0.4) 01/29/17 04:04 Baso # 0.1 K/mm3 (0.0-0.1) 01/29/17 04:04 Add Manual Diff Complete 01/29/17 04:04 Total Counted 200 01/29/17 04:04 Seg Neutrophils % 84.0 % (40.0-70.0) H 01/29/17 04:04 Seg Neuts % (Manual) 86.0 % (40.0-70.0) H 01/29/17 04:04 Band Neutrophils % 0 % 01/29/17 04:04 Lymphocytes % (Manual) 5.5 % (13.4-35.0) L 01/29/17 04:04 Reactive Lymphs % (Man) 0 % 01/29/17 04:04 Monocytes % (Manual) 8.5 % (0.0-7.3) H 01/29/17 04:04 Eosinophils % (Manual) 0 % (0.0-4.3) 01/29/17 04:04 Basophils % (Manual) 0 % (0.0-1.8) 01/29/17 04:04 Metamyelocytes % 0 % 01/29/17 04:04 Myelocytes % 0 % 01/29/17 04:04 Promyelocytes % 0 % 01/29/17 04:04 Blast Cells % 0 % 01/29/17 04:04 Nucleated RBC % 0.5 % (0.0-0.9) 01/29/17 04:04 Seg Neutrophils # 28.5 K/mm3 (1.8-7.7) H 01/29/17 04:04 Seg Neutrophils # Man 25.5 K/mm3 (1.8-7.7) H 01/29/17 04:04 Band Neutrophils # 0.0 K/mm3 01/29/17 04:04 Lymphocytes # (Manual) 1.6 K/mm3 (1.2-5.4) 01/29/17 04:04 Abs React Lymphs (Man) 0.0 K/mm3 01/29/17 04:04 Monocytes # (Manual) 2.5 K/mm3 (0.0-0.8) H 01/29/17 04:04 Eosinophils # (Manual) 0.0 K/mm3 (0.0-0.4) 01/29/17 04:04 Basophils # (Manual) 0.0 K/mm3 (0.0-0.1) 01/29/17 04:04 Metamyelocytes # 0.0 K/mm3 01/29/17 04:04 Myelocytes # 0.0 K/mm3 01/29/17 04:04 Promyelocytes # 0.0 K/mm3 01/29/17 04:04 Blast Cells # 0.0 K/mm3 01/29/17 04:04 WBC Morphology Not Reportable 01/29/17 04:04 Hypersegmented Neuts Not Reportable 01/29/17 04:04 Hyposegmented Neuts Not Reportable 01/29/17 04:04 Hypogranular Neuts Not Reportable 01/29/17 04:04 Smudge Cells Not Reportable 01/29/17 04:04 Toxic Granulation Not Reportable 01/29/17 04:04 Toxic Vacuolation Not Reportable 01/29/17 04:04 Dohle Bodies Not Reportable 01/29/17 04:04 Pelger-Huet Anomaly Not Reportable 01/29/17 04:04 Noe Rods Not Reportable 01/29/17 04:04 Platelet Estimate Appears normal 01/29/17 04:04 Clumped Platelets Not Reportable 01/29/17 04:04 Plt Clumps, EDTA 3+ 01/29/17 04:04 Large Platelets Not Reportable 01/29/17 04:04 Giant Platelets Not Reportable 01/29/17 04:04 Platelet Satelliting Not Reportable 01/29/17 04:04 Plt Morphology Comment Not Reportable 01/29/17 04:04 RBC Morphology Normal 01/29/17 04:04 Dimorphic RBCs Not Reportable 01/29/17 04:04 Polychromasia Not Reportable 01/29/17 04:04 Hypochromasia Not Reportable 01/29/17 04:04 Poikilocytosis Not Reportable 01/29/17 04:04 Anisocytosis Not Reportable 01/29/17 04:04 Microcytosis Not Reportable 01/29/17 04:04 Macrocytosis Not Reportable 01/29/17 04:04 Spherocytes Not Reportable 01/29/17 04:04 Pappenheimer Bodies Not Reportable 01/29/17 04:04 Sickle Cells Not Reportable 01/29/17 04:04 Target Cells Not Reportable 01/29/17 04:04 Tear Drop Cells Not Reportable 01/29/17 04:04 Ovalocytes Not Reportable 01/29/17 04:04 Helmet Cells Not Reportable 01/29/17 04:04 Dawkins-Odell Bodies Not Reportable 01/29/17 04:04 [place] Rings Not Reportable 01/29/17 04:04 Lisa Cells Not Reportable 01/29/17 04:04 Bite Cells Not Reportable 01/29/17 04:04 Crenated Cell Not Reportable 01/29/17 04:04 Elliptocytes Not Reportable 01/29/17 04:04 Acanthocytes (Spur) Not Reportable 01/29/17 04:04 Rouleaux Not Reportable 01/29/17 04:04 Hemoglobin C Crystals Not Reportable 01/29/17 04:04 Schistocytes Not Reportable 01/29/17 04:04 Malaria parasites Not Reportable 01/29/17 04:04 Luis Carlos Bodies Not Reportable 01/29/17 04:04 Hem Pathologist Commnt No 01/29/17 04:04 PT 13.5 Sec. (12.2-14.9) 01/23/17 04:22 INR 0.98 (0.87-1.13) 01/23/17 04:22 APTT 27.6 Sec. (24.2-36.6) 01/23/17 04:22 D-Dimer 204.60 ng/mlDDU (0-234) 01/23/17 Unknown POC ABG pH 7.454 (7.35-7.45) H 01/29/17 04:24 POC ABG pCO2 49.3 (35-45) H 01/29/17 04:24 POC ABG pO2 96 (80-105) 01/29/17 04:24 POC ABG HCO3 34.6 01/29/17 04:24 POC ABG Total CO2 36 01/29/17 04:24 POC ABG O2 Sat 98 01/29/17 04:24 POC ABG Base Excess 11 01/29/17 04:24 FiO2 35 % 01/29/17 04:24 Sodium 149 mmol/L (137-145) H 01/29/17 04:04 Potassium 4.4 mmol/L (3.6-5.0) 01/29/17 04:04 Chloride 104.4 mmol/L (98-107) 01/29/17 04:04 Carbon Dioxide 29 mmol/L (22-30) 01/29/17 04:04 Anion Gap 20 mmol/L 01/29/17 04:04 BUN 29 mg/dL (9-20) H 01/29/17 04:04 Creatinine 0.8 mg/dL (0.8-1.5) 01/29/17 04:04 Estimated GFR > 60 ml/min 01/29/17 04:04 BUN/Creatinine Ratio 36.25 % 01/29/17 04:04 Glucose 164 mg/dL (75-100) H 01/29/17 04:04 POC Glucose 215 (70-105) H 01/29/17 09:48 Lactic Acid 1.80 mmol/L (0.7-2.0) 01/24/17 16:08 Calcium 9.4 mg/dL (8.4-10.2) 01/29/17 04:04 Phosphorus 2.60 mg/dL (2.5-4.5) D 01/24/17 07:31 Magnesium 3.30 mg/dL (1.7-2.3) H 01/23/17 10:24 Total Bilirubin 0.80 mg/dL (0.1-1.2) 01/25/17 05:37 AST 14 units/L (5-40) 01/25/17 05:37 ALT 26 units/L (7-56) 01/25/17 05:37 Alkaline Phosphatase 64 units/L (35-129) 01/25/17 05:37 Total Creatine Kinase 523 units/L (55-170) H 01/23/17 12:27 CK-MB (CK-2) 9.2 ng/mL (0.0-4.0) H 01/23/17 12:27 CK-MB (CK-2) Rel Index 1.7 (0-4) 01/23/17 12:27 Troponin T < 0.010 ng/mL (0.00-0.029) 01/23/17 12:27 NT-Pro-B Natriuret Pep 22.36 pg/mL (0-450) 01/23/17 04:23 Total Protein 7.9 g/dL (6.3-8.2) 01/25/17 05:37 Albumin 4.0 g/dL (3.9-5) 01/25/17 05:37 Albumin/Globulin Ratio 1.0 % 01/25/17 05:37 Triglycerides 235 mg/dL (2-149) H 01/26/17 08:00 Urine Color Yellow (Yellow) 01/23/17 Unknown Urine Turbidity Clear (Clear) 01/23/17 Unknown Urine pH 5.0 (5.0-7.0) 01/23/17 Unknown Ur Specific [place] 1.018 (1.003-1.030) 01/23/17 Unknown Urine Protein <15 mg/dl mg/dL (Negative) 01/23/17 Unknown Urine Glucose (UA) Neg mg/dL (Negative) 01/23/17 Unknown Urine Ketones Neg mg/dL (Negative) 01/23/17 Unknown Urine Blood Neg (Negative) 01/23/17 Unknown Urine Nitrite Neg (Negative) 01/23/17 Unknown Urine Bilirubin Neg (Negative) 01/23/17 Unknown Urine Urobilinogen < 2.0 mg/dL (<2.0) 01/23/17 Unknown Ur Leukocyte Esterase Neg (Negative) 01/23/17 Unknown Urine WBC (Auto) 2.0 /HPF (0.0-6.0) 01/23/17 Unknown Urine RBC (Auto) 1.0 /HPF (0.0-6.0) 01/23/17 Unknown Urine Mucus Few /HPF 01/23/17 Unknown Urine Sperm 2+ /HPF ([employer]) 01/23/17 Unknown Urine Opiates Screen Presumptive positive 01/23/17 Unknown Urine Methadone Screen Presumptive negative 01/23/17 Unknown Ur Barbiturates Screen Presumptive positive 01/23/17 Unknown Ur Phencyclidine Scrn Presumptive negative 01/23/17 Unknown Ur Amphetamines Screen Presumptive negative 01/23/17 Unknown U Benzodiazepines Scrn Presumptive positive 01/23/17 Unknown Urine Cocaine Screen Presumptive negative 01/23/17 Unknown U Marijuana (THC) Screen Presumptive negative 01/23/17 Unknown Drugs of Abuse Note Disclamer 01/23/17 Unknown Schistocytes Smear None seen 01/26/17 09:25 Blood Type O POSITIVE 01/24/17 11:15 Antibody Screen TNR 01/24/17 11:15 HENRY Antibody Screen Negative 01/24/17 11:15
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
[2017-01-30] MEDS: ATIVAN IV PRN ×5 (02:19→21:49)
[2017-01-30 04:55] LABS: ISTAT Base Excess 5; ISTAT HCO3 30.7; ISTAT PCO2 54.9 (35-45); ISTAT PH 7.356 (7.35-7.45); ISTAT PO2 135 (80-105); ISTAT SO2 99; ISTAT TCO2 32
[2017-01-30 07:20] LABS: Hematocrit 46.5 % (35.5-45.6); Hemoglobin 15.3 gm/dl (11.8-15.2); Mean Corpuscular HGB Conc 33 % (32-34); Mean Corpuscular Hemoglobin 30 pg (28-32); Mean Corpuscular Volume 92 fl (84-94); Red Blood Count 5.08 M/mm3 (3.65-5.03); Red Cell Distribution Width 14.1 % (13.2-15.2)
[2017-01-30] MEDS: TYLENOL PO PRN (07:49)
[2017-01-30] MEDS: HALDOL IV PRN ×2 (07:51→18:42)
[2017-01-30 08:07] LABS: Anion Gap 21 mmol/L; BUN/Creatinine Ratio 31.11; Blood Urea Nitrogen 28 mg/dL (9-20); Calcium 9.4 mg/dL (8.4-10.2); Carbon Dioxide 26 mmol/L (22-30); Chloride 103.4 mmol/L (98-107); Glucose 234 mg/dL (75-100); Potassium 4.8 mmol/L (3.6-5.0); Sodium 146 mmol/L (137-145)
[2017-01-30] MEDS: PULMICORT IH SCH ×2 (08:13→20:42)
[2017-01-30] MEDS: BROVANA NEBU IH SCH ×2 (08:13→20:42)
[2017-01-30 09:01] LABS: White Blood Count 33.1 K/mm3 (4.5-11.0)
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
--- NOTE | 2017-01-30 09:39 | XRay Report ---
AP CHEST: HISTORY: Followup respiratory failure The endotracheal tube and feeding tube remain in good position. AP view of the chest demonstrates a normal mediastinal and cardiac contour with clear lungs and normal bony and soft tissue structures. IMPRESSION: Unremarkable AP chest. No change since yesterday's exam.
[2017-01-30 09:45] LABS: Basophils % (Manual) 0 % (0.0-1.8); Blastocytes % (Manual) 0 %; EDTA Platelet Clumps 3+; Eosinophils % (Manual) 0 % (0.0-4.3); Stomatocytes 1+
[2017-01-30 09:46] LABS: Diff Status Complete
[2017-01-30 10:18] LABS: Platelet Count 252 K/mm3 (140-440)
[2017-01-30] MEDS: VITAMIN B-1 PO SCH (10:33)
[2017-01-30] MEDS: KEPPRA PO SCH ×2 (10:33→21:49)
[2017-01-30] MEDS: FOLVITE PO SCH (10:34)
[2017-01-30] MEDS: LEVEMIR SUB-Q SCH (10:34)
[2017-01-30] MEDS: PROTONIX FEEDTUBE SCH (10:34)
--- NOTE | 2017-01-30 12:08 | Progress Note ---
Assessment and Plan Assessment and plan: Cardiopulmonary arrest. Continue supportive care. Cardiac isoenzymes negative for acute [place]. EKG with no ischemic changes. Echocardiogram okay. Acute asthma exacerbation. Continue IV solu-medrol, Duoneb, Pulmicort and Brovana. Acute respiratory failure due to asthma exacerbation. Cont vent management Anoxic Encephalopathy. No significant improvement. Patient actually appears to be worse. Neurology follow-up needed. CT head negative. Continue Haldol. Sepsis. Patient still with a significant leukocytosis. Continue IV antibiotics and follow cultures. Thrombocytopenia. Improved. DVT prophylaxis with SCDs only. Not on heparin/Lovenox because of thrombocytopenia Full code status History Interval history: No new issues overnight. Hospitalist Physical - Constitutional Vitals: Temp Pulse Resp BP Pulse Ox 101.0 F H 100 H 17 125/83 92 01/30/17 07:28 01/30/17 11:30 01/30/17 11:30 01/30/17 11:30 01/30/17 11:30 General appearance: Present: other (patient is intubated.) - EENT Eyes: Present: PERRL, EOM intact ENT: hearing intact, clear oral mucosa, dentition normal - Neck Neck: Present: supple, normal ROM - Respiratory Respiratory effort: normal Respiratory: bilateral: CTA - Cardiovascular Rhythm: regular Heart Sounds: Present: S1 & S2. Absent: gallop, rub - Extremities Extremities: no ischemia, No edema, Full ROM - Abdominal General gastrointestinal: soft, non-tender, non-distended, normal bowel sounds - Integumentary Integumentary: Present: clear, warm, dry - Neurologic Neurologic: CNII-XII intact, moves all extremities Results - Labs CBC & Chem 7: 01/30/17 06:50 01/30/17 06:50 Labs: Laboratory Last Values WBC 33.1 K/mm3 (4.5-11.0) H 01/30/17 06:50 RBC 5.08 M/mm3 (3.65-5.03) H 01/30/17 06:50 Hgb 15.3 gm/dl (11.8-15.2) H 01/30/17 06:50 Hct 46.5 % (35.5-45.6) H 01/30/17 06:50 MCV 92 fl (84-94) 01/30/17 06:50 MCH 30 pg (28-32) 01/30/17 06:50 MCHC 33 % (32-34) 01/30/17 06:50 RDW 14.1 % (13.2-15.2) 01/30/17 06:50 Plt Count 252 K/mm3 (140-440) 01/30/17 06:50 [place] % (Auto) 10.3 % (0.0-7.3) H 01/29/17 04:04 Eos % (Auto) 0.1 % (0.0-4.3) 01/29/17 04:04 Lymph # Accounts Payable Payroll Coordinator 01/23/17 04:22 [place] # 3.5 K/mm3 (0.0-0.8) H 01/29/17 04:04 Eos # 0.0 K/mm3 (0.0-0.4) 01/29/17 04:04 Baso # 0.1 K/mm3 (0.0-0.1) 01/29/17 04:04 Add Manual Diff Complete 01/30/17 06:50 Total Counted 100 01/30/17 06:50 Seg Neutrophils % 84.0 % (40.0-70.0) H 01/29/17 04:04 Seg Neuts % (Manual) 73.0 % (40.0-70.0) H 01/30/17 06:50 Band Neutrophils % 4.0 % 01/30/17 06:50 Lymphocytes % (Manual) 10.0 % (13.4-35.0) L 01/30/17 06:50 Reactive Lymphs % (Man) 0 % 01/30/17 06:50 Monocytes % (Manual) 6.0 % (0.0-7.3) 01/30/17 06:50 Eosinophils % (Manual) 0 % (0.0-4.3) 01/30/17 06:50 Basophils % (Manual) 0 % (0.0-1.8) 01/30/17 06:50 Metamyelocytes % 2.0 % 01/30/17 06:50 Myelocytes % 4.0 % 01/30/17 06:50 Promyelocytes % 1.0 % 01/30/17 06:50 Blast Cells % 0 % 01/30/17 06:50 Nucleated RBC % Not Reportable 01/30/17 06:50 Seg Neutrophils # 28.5 K/mm3 (1.8-7.7) H 01/29/17 04:04 Seg Neutrophils # Man 24.2 K/mm3 (1.8-7.7) H 01/30/17 06:50 Band Neutrophils # 1.3 K/mm3 01/30/17 06:50 Lymphocytes # (Manual) 3.3 K/mm3 (1.2-5.4) 01/30/17 06:50 Abs React Lymphs (Man) 0.0 K/mm3 01/30/17 06:50 Monocytes # (Manual) 2.0 K/mm3 (0.0-0.8) H 01/30/17 06:50 Eosinophils # (Manual) 0.0 K/mm3 (0.0-0.4) 01/30/17 06:50 Basophils # (Manual) 0.0 K/mm3 (0.0-0.1) 01/30/17 06:50 Metamyelocytes # 0.7 K/mm3 01/30/17 06:50 Myelocytes # 1.3 K/mm3 01/30/17 06:50 Promyelocytes # 0.3 K/mm3 01/30/17 06:50 Blast Cells # 0.0 K/mm3 01/30/17 06:50 WBC Morphology Not Reportable 01/30/17 06:50 Hypersegmented Neuts Not Reportable 01/30/17 06:50 Hyposegmented Neuts Not Reportable 01/30/17 06:50 Hypogranular Neuts Not Reportable 01/30/17 06:50 Smudge Cells Not Reportable 01/30/17 06:50 Toxic Granulation Not Reportable 01/30/17 06:50 Toxic Vacuolation Not Reportable 01/30/17 06:50 Dohle Bodies Not Reportable 01/30/17 06:50 Pelger-Huet Anomaly Not Reportable 01/30/17 06:50 Noe Rods Not Reportable 01/30/17 06:50 Platelet Estimate Not Reportable 01/30/17 06:50 Clumped Platelets Not Reportable 01/30/17 06:50 Plt Clumps, EDTA 3+ 01/30/17 06:50 Large Platelets Not Reportable 01/30/17 06:50 Giant Platelets Not Reportable 01/30/17 06:50 Platelet Satelliting Not Reportable 01/30/17 06:50 Plt Morphology Comment Not Reportable 01/30/17 06:50 RBC Morphology Not Reportable 01/30/17 06:50 Dimorphic RBCs Not Reportable 01/30/17 06:50 Polychromasia Not Reportable 01/30/17 06:50 Hypochromasia Not Reportable 01/30/17 06:50 Poikilocytosis Not Reportable 01/30/17 06:50 Anisocytosis Not Reportable 01/30/17 06:50 Microcytosis Not Reportable 01/30/17 06:50 Macrocytosis Not Reportable 01/30/17 06:50 Spherocytes Not Reportable 01/30/17 06:50 Pappenheimer Bodies Not Reportable 01/30/17 06:50 Sickle Cells Not Reportable 01/30/17 06:50 Target Cells Not Reportable 01/30/17 06:50 Tear Drop Cells Not Reportable 01/30/17 06:50 Ovalocytes Not Reportable 01/30/17 06:50 Stomatocytes 1+ 01/30/17 06:50 Helmet Cells Not Reportable 01/30/17 06:50 [place] Bodies Not Reportable 01/30/17 06:50 [place] Rings Not Reportable 01/30/17 06:50 [place] Cells Not Reportable 01/30/17 06:50 Bite Cells Not Reportable 01/30/17 06:50 Crenated Cell Not Reportable 01/30/17 06:50 Elliptocytes Not Reportable 01/30/17 06:50 Acanthocytes (Spur) Not Reportable 01/30/17 06:50 Rouleaux Not Reportable 01/30/17 06:50 Hemoglobin C Crystals Not Reportable 01/30/17 06:50 Schistocytes Not Reportable 01/30/17 06:50 Malaria parasites Not Reportable 01/30/17 06:50 Luis Carlos Bodies Not Reportable 01/30/17 06:50 Hem Pathologist Commnt No 01/30/17 06:50 PT 13.5 Sec. (12.2-14.9) 01/23/17 04:22 INR 0.98 (0.87-1.13) 01/23/17 04:22 APTT 27.6 Sec. (24.2-36.6) 01/23/17 04:22 D-Dimer 204.60 ng/mlDDU (0-234) 01/23/17 Unknown POC ABG pH 7.356 (7.35-7.45) 01/30/17 04:29 POC ABG pCO2 54.9 (35-45) H 01/30/17 04:29 POC ABG pO2 135 (80-105) H 01/30/17 04:29 POC ABG HCO3 30.7 01/30/17 04:29 POC ABG Total CO2 32 01/30/17 04:29 POC ABG O2 Sat 99 01/30/17 04:29 POC ABG Base Excess 5 01/30/17 04:29 FiO2 35 % 01/30/17 04:29 Sodium 146 mmol/L (137-145) H 01/30/17 06:50 Potassium 4.8 mmol/L (3.6-5.0) 01/30/17 06:50 Chloride 103.4 mmol/L (98-107) 01/30/17 06:50 Carbon Dioxide 26 mmol/L (22-30) 01/30/17 06:50 Anion Gap 21 mmol/L 01/30/17 06:50 BUN 28 mg/dL (9-20) H 01/30/17 06:50 Creatinine 0.9 mg/dL (0.8-1.5) 01/30/17 06:50 Estimated GFR > 60 ml/min 01/30/17 06:50 BUN/Creatinine Ratio 31.11 % 01/30/17 06:50 Glucose 234 mg/dL (75-100) H 01/30/17 06:50 POC Glucose 247 (70-105) H 01/30/17 10:06 Lactic Acid 1.80 mmol/L (0.7-2.0) 01/24/17 16:08 Calcium 9.4 mg/dL (8.4-10.2) 01/30/17 06:50 Phosphorus 2.60 mg/dL (2.5-4.5) D 01/24/17 07:31 Magnesium 3.30 mg/dL (1.7-2.3) H 01/23/17 10:24 Total Bilirubin 0.80 mg/dL (0.1-1.2) 01/25/17 05:37 AST 14 units/L (5-40) 01/25/17 05:37 ALT 26 units/L (7-56) 01/25/17 05:37 Alkaline Phosphatase 64 units/L (35-129) 01/25/17 05:37 Total Creatine Kinase 523 units/L (55-170) H 01/23/17 12:27 CK-MB (CK-2) 9.2 ng/mL (0.0-4.0) H 01/23/17 12:27 CK-MB (CK-2) Rel Index 1.7 (0-4) 01/23/17 12:27 Troponin T < 0.010 ng/mL (0.00-0.029) 01/23/17 12:27 NT-Pro-B Natriuret Pep 22.36 pg/mL (0-450) 01/23/17 04:23 Total Protein 7.9 g/dL (6.3-8.2) 01/25/17 05:37 Albumin 4.0 g/dL (3.9-5) 01/25/17 05:37 Albumin/Globulin Ratio 1.0 % 01/25/17 05:37 Triglycerides 235 mg/dL (2-149) H 01/26/17 08:00 Urine Color Yellow (Yellow) 01/23/17 Unknown Urine Turbidity Clear (Clear) 01/23/17 Unknown Urine pH 5.0 (5.0-7.0) 01/23/17 Unknown Ur Specific [place] 1.018 (1.003-1.030) 01/23/17 Unknown Urine Protein <15 mg/dl mg/dL (Negative) 01/23/17 Unknown Urine Glucose (UA) Neg mg/dL (Negative) 01/23/17 Unknown Urine Ketones Neg mg/dL (Negative) 01/23/17 Unknown Urine Blood Neg (Negative) 01/23/17 Unknown Urine Nitrite Neg (Negative) 01/23/17 Unknown Urine Bilirubin Neg (Negative) 01/23/17 Unknown Urine Urobilinogen < 2.0 mg/dL (<2.0) 01/23/17 Unknown Ur Leukocyte Esterase Neg (Negative) 01/23/17 Unknown Urine WBC (Auto) 2.0 /HPF (0.0-6.0) 01/23/17 Unknown Urine RBC (Auto) 1.0 /HPF (0.0-6.0) 01/23/17 Unknown Urine Mucus Few /HPF 01/23/17 Unknown Urine Sperm 2+ /HPF (TOLL TICKET CLERK) 01/23/17 Unknown Urine Opiates Screen Presumptive positive 01/23/17 Unknown Urine Methadone Screen Presumptive negative 01/23/17 Unknown Ur Barbiturates Screen Presumptive positive 01/23/17 Unknown Ur Phencyclidine Scrn Presumptive negative 01/23/17 Unknown Ur Amphetamines Screen Presumptive negative 01/23/17 Unknown U Benzodiazepines Scrn Presumptive positive 01/23/17 Unknown Urine Cocaine Screen Presumptive negative 01/23/17 Unknown U Marijuana (THC) Screen Presumptive negative 01/23/17 Unknown Drugs of Abuse Note Disclamer 01/23/17 Unknown Schistocytes Smear None seen 01/26/17 09:25 Blood Type O POSITIVE 01/24/17 11:15 Antibody Screen TNR 01/24/17 11:15 HENRY Antibody Screen Negative 01/24/17 11:15
[2017-01-30 14:30] LABS: Bilirubin,Urine NEG (Negative); Blood,Urine MOD (Negative); Ketones,Urine NEG (Negative); Leukocyte Esterase,Urine NEG (Negative); Nitrite,Urine NEG (Negative)
[2017-01-31] MEDS: ATIVAN IV PRN ×2 (01:03→19:51)
[2017-01-31] MEDS: HALDOL IV PRN (03:14)
[2017-01-31 04:34] LABS: Hematocrit 45.9 % (35.5-45.6); Hemoglobin 15.2 gm/dl (11.8-15.2); Mean Corpuscular HGB Conc 33 % (32-34); Mean Corpuscular Hemoglobin 30 pg (28-32); Mean Corpuscular Volume 91 fl (84-94); Red Blood Count 5.05 M/mm3 (3.65-5.03); Red Cell Distribution Width 14.2 % (13.2-15.2)
[2017-01-31 04:35] LABS: Blood Urea Nitrogen 28 mg/dL (9-20); Calcium 9.6 mg/dL (8.4-10.2); Carbon Dioxide 35 mmol/L (22-30); Glucose 205 mg/dL (75-100)
[2017-01-31 05:05] LABS: Anion Gap 14 mmol/L; Chloride 107.4 mmol/L (98-107); Potassium 4.5 mmol/L (3.6-5.0); Sodium 152 mmol/L (137-145)
[2017-01-31 05:13] LABS: ISTAT Base Excess 11; ISTAT HCO3 34.1; ISTAT PCO2 41.7 (35-45); ISTAT PH 7.521 (7.35-7.45); ISTAT PO2 95 (80-105); ISTAT SO2 98; ISTAT TCO2 35
[2017-01-31] MEDS: PULMICORT IH SCH ×2 (07:26→19:59)
[2017-01-31] MEDS: BROVANA NEBU IH SCH ×2 (07:26→19:59)
[2017-01-31 08:04] LABS: Basophils % (Manual) 0 % (0.0-1.8); Blastocytes % (Manual) 0 %; EDTA Platelet Clumps 3+; Eosinophils % (Manual) 0 % (0.0-4.3); Stomatocytes 1+
[2017-01-31 08:05] LABS: Diff Status Complete
[2017-01-31 08:06] LABS: Platelet Count 284 K/mm3 (140-440)
[2017-01-31] MEDS: KEPPRA PO SCH ×2 (10:19→22:11)
[2017-01-31] MEDS: LEVEMIR SUB-Q SCH (10:20)
[2017-01-31] MEDS: VITAMIN B-1 PO SCH (10:20)
[2017-01-31] MEDS: PROTONIX FEEDTUBE SCH (10:20)
[2017-01-31] MEDS: FOLVITE PO SCH (10:20)
[2017-01-31] MEDS: TYLENOL PO PRN ×2 (10:28→15:32)
--- NOTE | 2017-01-31 11:36 | Progress Note ---
Assessment and Plan Assessment and plan: Cardiopulmonary arrest. Continue supportive care. Cardiac isoenzymes negative for acute [place]. EKG with no ischemic changes. Echocardiogram okay. Acute asthma exacerbation. Continue IV solu-medrol, Duoneb, Pulmicort and Brovana. Decrease IV steroids today per pulmonary. Acute respiratory failure due to asthma exacerbation. Cont vent management Anoxic Encephalopathy. No significant improvement. Neurology follow-up pending. CT head negative. Continue Haldol. Sepsis. Patient still with a significant leukocytosis. Continue IV antibiotics and follow cultures. Thrombocytopenia. Improved. DVT prophylaxis with SCDs only. Not on heparin/Lovenox because of thrombocytopenia Full code status The high probability of a clinically significant, sudden or life threatening deterioration of the [neurological and respiratory] system(s) required my full and direct attention, intervention and personal management. The aggregate critical care time was [32] minutes. This time is in addition to time spent performing reported procedures but includes the following: [x] Data Review and interpretation [x] Patient assessment and monitoring of vital signs [x] Documentation [x] Medication orders and management History Interval history: No new issues overnight. Hospitalist Physical - Constitutional Vitals: Temp Pulse Resp BP Pulse Ox 101.9 F H 114 H 18 109/71 96 01/31/17 08:00 01/31/17 11:30 01/31/17 09:00 01/31/17 11:30 01/31/17 11:30 General appearance: Present: other (patient is intubated.) - EENT Eyes: Present: PERRL, EOM intact ENT: hearing intact, clear oral mucosa, dentition normal - Neck Neck: Present: supple, normal ROM - Respiratory Respiratory effort: normal Respiratory: bilateral: diminished, rhonchi - Cardiovascular Rhythm: regular Heart Sounds: Present: S1 & S2. Absent: gallop, rub - Extremities Extremities: no ischemia, No edema, Full ROM - Abdominal General gastrointestinal: soft, non-tender, non-distended, normal bowel sounds - Integumentary Integumentary: Present: clear, warm, dry - Neurologic Neurologic: CNII-XII intact, moves all extremities Results - Labs CBC & Chem 7: 01/31/17 03:23 01/31/17 03:23 Labs: Laboratory Last Values WBC 33.0 K/mm3 (4.5-11.0) H 01/31/17 03:23 RBC 5.05 M/mm3 (3.65-5.03) H 01/31/17 03:23 Hgb 15.2 gm/dl (11.8-15.2) 01/31/17 03:23 Hct 45.9 % (35.5-45.6) H 01/31/17 03:23 MCV 91 fl (84-94) 01/31/17 03:23 MCH 30 pg (28-32) 01/31/17 03:23 MCHC 33 % (32-34) 01/31/17 03:23 RDW 14.2 % (13.2-15.2) 01/31/17 03:23 Plt Count 284 K/mm3 (140-440) 01/31/17 03:23 [place] % (Auto) 10.3 % (0.0-7.3) H 01/29/17 04:04 Eos % (Auto) 0.1 % (0.0-4.3) 01/29/17 04:04 Lymph # Clothes Drier Assembler 01/23/17 04:22 [place] # 3.5 K/mm3 (0.0-0.8) H 01/29/17 04:04 Eos # 0.0 K/mm3 (0.0-0.4) 01/29/17 04:04 Baso # 0.1 K/mm3 (0.0-0.1) 01/29/17 04:04 Add Manual Diff Complete 01/31/17 03:23 Total Counted 200 01/31/17 03:23 Seg Neutrophils % 84.0 % (40.0-70.0) H 01/29/17 04:04 Seg Neuts % (Manual) 86.5 % (40.0-70.0) H 01/31/17 03:23 Band Neutrophils % 0.5 % 01/31/17 03:23 Lymphocytes % (Manual) 8.5 % (13.4-35.0) L 01/31/17 03:23 Reactive Lymphs % (Man) 0 % 01/31/17 03:23 Monocytes % (Manual) 4.0 % (0.0-7.3) 01/31/17 03:23 Eosinophils % (Manual) 0 % (0.0-4.3) 01/31/17 03:23 Basophils % (Manual) 0 % (0.0-1.8) 01/31/17 03:23 Metamyelocytes % 0 % 01/31/17 03:23 Myelocytes % 0.5 % 01/31/17 03:23 Promyelocytes % 0 % 01/31/17 03:23 Blast Cells % 0 % 01/31/17 03:23 Nucleated RBC % Not Reportable 01/31/17 03:23 Seg Neutrophils # 28.5 K/mm3 (1.8-7.7) H 01/29/17 04:04 Seg Neutrophils # Man 28.5 K/mm3 (1.8-7.7) H 01/31/17 03:23 Band Neutrophils # 0.2 K/mm3 01/31/17 03:23 Lymphocytes # (Manual) 2.8 K/mm3 (1.2-5.4) 01/31/17 03:23 Abs React Lymphs (Man) 0.0 K/mm3 01/31/17 03:23 Monocytes # (Manual) 1.3 K/mm3 (0.0-0.8) H 01/31/17 03:23 Eosinophils # (Manual) 0.0 K/mm3 (0.0-0.4) 01/31/17 03:23 Basophils # (Manual) 0.0 K/mm3 (0.0-0.1) 01/31/17 03:23 Metamyelocytes # 0.0 K/mm3 01/31/17 03:23 Myelocytes # 0.2 K/mm3 01/31/17 03:23 Promyelocytes # 0.0 K/mm3 01/31/17 03:23 Blast Cells # 0.0 K/mm3 01/31/17 03:23 WBC Morphology Not Reportable 01/31/17 03:23 Hypersegmented Neuts Not Reportable 01/31/17 03:23 Hyposegmented Neuts Not Reportable 01/31/17 03:23 Hypogranular Neuts Not Reportable 01/31/17 03:23 Smudge Cells Not Reportable 01/31/17 03:23 Toxic Granulation Not Reportable 01/31/17 03:23 Toxic Vacuolation Not Reportable 01/31/17 03:23 Dohle Bodies Not Reportable 01/31/17 03:23 Pelger-Huet Anomaly Not Reportable 01/31/17 03:23 Noe Rods Not Reportable 01/31/17 03:23 Platelet Estimate Appears normal 01/31/17 03:23 Clumped Platelets Not Reportable 01/31/17 03:23 Plt Clumps, EDTA 3+ 01/31/17 03:23 Large Platelets Not Reportable 01/31/17 03:23 Giant Platelets Not Reportable 01/31/17 03:23 Platelet Satelliting Not Reportable 01/31/17 03:23 Plt Morphology Comment Not Reportable 01/31/17 03:23 RBC Morphology Not Reportable 01/31/17 03:23 Dimorphic RBCs Not Reportable 01/31/17 03:23 Polychromasia Not Reportable 01/31/17 03:23 Hypochromasia Not Reportable 01/31/17 03:23 Poikilocytosis Not Reportable 01/31/17 03:23 Anisocytosis Not Reportable 01/31/17 03:23 Microcytosis Not Reportable 01/31/17 03:23 Macrocytosis Not Reportable 01/31/17 03:23 Spherocytes Not Reportable 01/31/17 03:23 Pappenheimer Bodies Not Reportable 01/31/17 03:23 Sickle Cells Not Reportable 01/31/17 03:23 Target Cells Not Reportable 01/31/17 03:23 Tear Drop Cells Not Reportable 01/31/17 03:23 Ovalocytes Not Reportable 01/31/17 03:23 Stomatocytes 1+ 01/31/17 03:23 Helmet Cells Not Reportable 01/31/17 03:23 [place] Bodies Not Reportable 01/31/17 03:23 [place] Rings Not Reportable 01/31/17 03:23 [place] Cells Not Reportable 01/31/17 03:23 Bite Cells Not Reportable 01/31/17 03:23 Crenated Cell Not Reportable 01/31/17 03:23 Elliptocytes Not Reportable 01/31/17 03:23 Acanthocytes (Spur) Not Reportable 01/31/17 03:23 Rouleaux Not Reportable 01/31/17 03:23 Hemoglobin C Crystals Not Reportable 01/31/17 03:23 Schistocytes Not Reportable 01/31/17 03:23 Malaria parasites Not Reportable 01/31/17 03:23 Luis Carlos Bodies Not Reportable 01/31/17 03:23 Hem Pathologist Commnt No 01/31/17 03:23 PT 13.5 Sec. (12.2-14.9) 01/23/17 04:22 INR 0.98 (0.87-1.13) 01/23/17 04:22 APTT 27.6 Sec. (24.2-36.6) 01/23/17 04:22 D-Dimer 204.60 ng/mlDDU (0-234) 01/23/17 Unknown POC ABG pH 7.521 (7.35-7.45) H 01/31/17 04:31 POC ABG pCO2 41.7 (35-45) 01/31/17 04:31 POC ABG pO2 95 (80-105) 01/31/17 04:31 POC ABG HCO3 34.1 01/31/17 04:31 POC ABG Total CO2 35 01/31/17 04:31 POC ABG O2 Sat 98 01/31/17 04:31 POC ABG Base Excess 11 01/31/17 04:31 FiO2 25 % 01/31/17 04:31 Sodium 152 mmol/L (137-145) H 01/31/17 03:23 Potassium 4.5 mmol/L (3.6-5.0) 01/31/17 03:23 Chloride 107.4 mmol/L (98-107) H 01/31/17 03:23 Carbon Dioxide 35 mmol/L (22-30) H D 01/31/17 03:23 Anion Gap 14 mmol/L 01/31/17 03:23 BUN 28 mg/dL (9-20) H 01/31/17 03:23 Creatinine 0.8 mg/dL (0.8-1.5) 01/31/17 03:23 Estimated GFR > 60 ml/min 01/31/17 03:23 BUN/Creatinine Ratio 35.00 % 01/31/17 03:23 Glucose 205 mg/dL (75-100) H 01/31/17 03:23 POC Glucose 174 (70-105) H 01/31/17 05:34 Lactic Acid 1.80 mmol/L (0.7-2.0) 01/24/17 16:08 Calcium 9.6 mg/dL (8.4-10.2) 01/31/17 03:23 Phosphorus 2.60 mg/dL (2.5-4.5) D 01/24/17 07:31 Magnesium 3.30 mg/dL (1.7-2.3) H 01/23/17 10:24 Total Bilirubin 0.80 mg/dL (0.1-1.2) 01/25/17 05:37 AST 14 units/L (5-40) 01/25/17 05:37 ALT 26 units/L (7-56) 01/25/17 05:37 Alkaline Phosphatase 64 units/L (35-129) 01/25/17 05:37 Total Creatine Kinase 523 units/L (55-170) H 01/23/17 12:27 CK-MB (CK-2) 9.2 ng/mL (0.0-4.0) H 01/23/17 12:27 CK-MB (CK-2) Rel Index 1.7 (0-4) 01/23/17 12:27 Troponin T < 0.010 ng/mL (0.00-0.029) 01/23/17 12:27 NT-Pro-B Natriuret Pep 22.36 pg/mL (0-450) 01/23/17 04:23 Total Protein 7.9 g/dL (6.3-8.2) 01/25/17 05:37 Albumin 4.0 g/dL (3.9-5) 01/25/17 05:37 Albumin/Globulin Ratio 1.0 % 01/25/17 05:37 Triglycerides 235 mg/dL (2-149) H 01/26/17 08:00 Urine Color Yellow (Yellow) 01/30/17 13:50 Urine Turbidity Clear (Clear) 01/30/17 13:50 Urine pH 5.0 (5.0-7.0) 01/30/17 13:50 Ur Specific [place] 1.034 (1.003-1.030) H 01/30/17 13:50 Urine Protein 30 mg/dl mg/dL (Negative) 01/30/17 13:50 Urine Glucose (UA) 150 mg/dL (Negative) 01/30/17 13:50 Urine Ketones Neg mg/dL (Negative) 01/30/17 13:50 Urine Blood Mod (Negative) 01/30/17 13:50 Urine Nitrite Neg (Negative) 01/30/17 13:50 Ur Reducing Substances Not Reportable 01/30/17 13:50 Urine Bilirubin Neg (Negative) 01/30/17 13:50 Urine Ictotest Not Reportable 01/30/17 13:50 Urine Urobilinogen 2.0 mg/dL (<2.0) 01/30/17 13:50 Ur Leukocyte Esterase Neg (Negative) 01/30/17 13:50 Urine WBC (Auto) 4.0 /HPF (0.0-6.0) 01/30/17 13:50 Urine RBC (Auto) 22.0 /HPF (0.0-6.0) 01/30/17 13:50 U Epithel Cells (Auto) 2.0 /HPF (0-13.0) 01/30/17 13:50 Urine Mucus Few /HPF 01/23/17 Unknown Urine Sperm 2+ /HPF (YOUTH TEACHER) 01/23/17 Unknown Urine Opiates Screen Presumptive positive 01/23/17 Unknown Urine Methadone Screen Presumptive negative 01/23/17 Unknown Ur Barbiturates Screen Presumptive positive 01/23/17 Unknown Ur Phencyclidine Scrn Presumptive negative 01/23/17 Unknown Ur Amphetamines Screen Presumptive negative 01/23/17 Unknown U Benzodiazepines Scrn Presumptive positive 01/23/17 Unknown Urine Cocaine Screen Presumptive negative 01/23/17 Unknown U Marijuana (THC) Screen Presumptive negative 01/23/17 Unknown Drugs of Abuse Note Disclamer 01/23/17 Unknown Schistocytes Smear None seen 01/26/17 09:25 Blood Type O POSITIVE 01/24/17 11:15 Antibody Screen TNR 01/24/17 11:15 HENRY Antibody Screen Negative 01/24/17 11:15
--- NOTE | 2017-01-31 12:02 | Progress Note ---
Assessment and Plan 36 YO M Hx asthma p/w SOB c/b cardiopulmonary arrest requiring ACLS for 12 mins in hospital on 01/23 @ approx 3 AM. 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 On neuro exam as of 01/26 11 AM and 01/31 11 AM (off sedatives > 72 hrs) is that pt has all intact brainstem reflexes but no purposeful movements as UE and LE movement limited to myoclonus and LUE posturing. CTH neg and EEG mod nonspecific diffuse cerebral dysfunction some ? reactivity but no seizures. Final neuro prognosis on 01/31 as pt has been off sedative for > 72 hrs is that pt does meet AAN criteria for poor neuro prognosis (, unconsciousness after one month, or unconsciousness or severe disability after six months). Etiology is likely d/t mod-severe anoxic encephalopathy Recs: 1. Neuro checks Q4hrs 2. LEV 500mg IV BID to help control myoclonus 3. Will call mother to discuss impression and she will consider withdrawal of care vs. Trach/PEG-I suspect she will consent to Trach/PEG/LTACH route. Subjective Date of service: 01/31/17 Principal diagnosis: s/p cardiopulmonary arrest Interval history: off sedation since 01/28 Objective - Vital Sign Vital Signs - 12hr 01/31/17 01/31/17 01/31/17 00:00 01:00 02:00 Temperature Pulse Rate 113 H 119 H 114 H Pulse Rate [ Anterior Bilateral Throughout] Pulse Rate [ From Monitor] Respiratory 12 18 17 Rate Respiratory Rate [Anterior Bilateral Throughout] Blood Pressure 142/76 133/76 119/73 O2 Sat by Pulse 96 91 93 Oximetry 01/31/17 01/31/17 01/31/17 03:00 04:00 04:25 Temperature 100.8 F H Pulse Rate 119 H 121 H 121 H Pulse Rate [ Anterior Bilateral Throughout] Pulse Rate [ From Monitor] Respiratory 19 15 Rate Respiratory Rate [Anterior Bilateral Throughout] Blood Pressure 124/69 119/66 119/66 O2 Sat by Pulse 90 98 96 Oximetry 01/31/17 01/31/17 01/31/17 05:00 06:00 07:00 Temperature Pulse Rate 121 H 122 H 123 H Pulse Rate [ Anterior Bilateral Throughout] Pulse Rate [ From Monitor] Respiratory 16 16 19 Rate Respiratory Rate [Anterior Bilateral Throughout] Blood Pressure 121/67 117/71 114/72 O2 Sat by Pulse 94 92 90 Oximetry 01/31/17 01/31/17 01/31/17 07:22 07:33 08:00 Temperature 101.9 F H Pulse Rate 122 H 125 H Pulse Rate [ 122 H 122 H Anterior Bilateral Throughout] Pulse Rate [ 120 H From Monitor] Respiratory 19 Rate Respiratory 20 17 Rate [Anterior Bilateral Throughout] Blood Pressure 114/72 112/65 O2 Sat by Pulse 97 92 Oximetry 01/31/17 01/31/17 01/31/17 09:00 11:30 11:33 Temperature Pulse Rate 123 H 114 H 119 H Pulse Rate [ Anterior Bilateral Throughout] Pulse Rate [ From Monitor] Respiratory 18 19 Rate Respiratory Rate [Anterior Bilateral Throughout] Blood Pressure 118/65 109/71 109/71 O2 Sat by Pulse 92 96 96 Oximetry - General Apperance Constitutional: acutely ill - EENT EENT: ATNC, PERRL, mucous membranes dry - Respiratory Respiratory: chest non-tender, no respiratory distress, decreased breath sounds - Cardiovascular Cardiovascular: regular rate Extremities: no peripheral edema bilat, no clubbing, cyanosis, no inflammation, no ischemia or petechiae - Gastrointestinal Gastrointestinal: normoactive bowel sounds, soft, non-distended - Integumentary Integumentary: normal - Neurologic Cranial nerve examination: PERRL, V1/V2/V3 grossly intact, face symmetric, intact, intact gag reflex, Intact Vestibulo-ocular r, intact corneal reflex Speech examination: other (no speech) Detailed motor examination: other (myoclonus b/l LE and suspected ext posturing LUE) - Musculoskeletal Musculoskeletal: no fluid collection, no pain, normal range of motion - Laboratory Findings CBC and BMP: 01/31/17 03:23 01/31/17 03:23 Abnormal Lab Findings: Abnormal Labs 01/23/17 01/23/17 01/23/17 07:37 10:24 12:27 WBC RBC Hgb Hct RDW Plt Count [place] % (Auto) [place] # Seg Neutrophils % Seg Neuts % (Manual) Lymphocytes % (Manual) Monocytes % (Manual) Seg Neutrophils # Seg Neutrophils # Man Lymphocytes # (Manual) Monocytes # (Manual) POC ABG pH POC ABG pCO2 POC ABG pO2 Sodium Chloride Carbon Dioxide BUN Creatinine Glucose POC Glucose Lactic Acid Phosphorus Magnesium 3.30 H Total Creatine Kinase 503 H 523 H CK-MB (CK-2) 6.9 H 9.2 H Triglycerides Ur Specific [place] 01/23/17 01/23/17 01/23/17 12:27 16:50 21:21 WBC RBC Hgb Hct RDW Plt Count [place] % (Auto) [place] # Seg Neutrophils % Seg Neuts % (Manual) Lymphocytes % (Manual) Monocytes % (Manual) Seg Neutrophils # Seg Neutrophils # Man Lymphocytes # (Manual) Monocytes # (Manual) POC ABG pH POC ABG pCO2 POC ABG pO2 Sodium Chloride Carbon Dioxide BUN Creatinine Glucose POC Glucose 166 H 158 H Lactic Acid Phosphorus 1.30 L Magnesium Total Creatine Kinase CK-MB (CK-2) Triglycerides Ur Specific [place] 01/24/17 01/24/17 01/24/17 01:49 03:38 03:38 WBC 24.7 H RBC Hgb Hct RDW Plt Count 45 L [place] % (Auto) [place] # Seg Neutrophils % Seg Neuts % (Manual) 77.0 H Lymphocytes % (Manual) 6.0 L Monocytes % (Manual) Seg Neutrophils # Seg Neutrophils # Man 19.0 H Lymphocytes # (Manual) Monocytes # (Manual) 1.5 H POC ABG pH POC ABG pCO2 POC ABG pO2 Sodium 136 L D Chloride 97.3 L Carbon Dioxide BUN Creatinine 0.7 L Glucose 197 H POC Glucose 183 H Lactic Acid Phosphorus Magnesium Total Creatine Kinase CK-MB (CK-2) Triglycerides Ur Specific [place] 01/24/17 01/24/17 01/24/17 04:46 05:04 09:00 WBC RBC Hgb Hct RDW Plt Count [place] % (Auto) [place] # Seg Neutrophils % Seg Neuts % (Manual) Lymphocytes % (Manual) Monocytes % (Manual) Seg Neutrophils # Seg Neutrophils # Man Lymphocytes # (Manual) Monocytes # (Manual) POC ABG pH 7.472 H POC ABG pCO2 POC ABG pO2 Sodium Chloride Carbon Dioxide BUN Creatinine Glucose POC Glucose 193 H 220 H Lactic Acid Phosphorus Magnesium Total Creatine Kinase CK-MB (CK-2) Triglycerides Ur Specific [place] 01/24/17 01/24/17 01/24/17 12:26 14:07 18:00 WBC RBC Hgb Hct RDW Plt Count [place] % (Auto) [place] # Seg Neutrophils % Seg Neuts % (Manual) Lymphocytes % (Manual) Monocytes % (Manual) Seg Neutrophils # Seg Neutrophils # Man Lymphocytes # (Manual) Monocytes # (Manual) POC ABG pH POC ABG pCO2 POC ABG pO2 Sodium Chloride Carbon Dioxide BUN Creatinine Glucose POC Glucose 194 H 163 H Lactic Acid 2.30 H* Phosphorus Magnesium Total Creatine Kinase CK-MB (CK-2) Triglycerides Ur Specific [place] 01/24/17 01/25/17 01/25/17 22:39 02:20 04:36 WBC RBC Hgb Hct RDW Plt Count [place] % (Auto) [place] # Seg Neutrophils % Seg Neuts % (Manual) Lymphocytes % (Manual) Monocytes % (Manual) Seg Neutrophils # Seg Neutrophils # Man Lymphocytes # (Manual) Monocytes # (Manual) POC ABG pH POC ABG pCO2 46.7 H POC ABG pO2 Sodium Chloride Carbon Dioxide BUN Creatinine Glucose POC Glucose 215 H 194 H Lactic Acid Phosphorus Magnesium Total Creatine Kinase CK-MB (CK-2) Triglycerides Ur Specific [place] 01/25/17 01/25/17 01/25/17 05:37 05:37 06:03 WBC 34.5 H RBC Hgb Hct RDW Plt Count [place] % (Auto) [place] # Seg Neutrophils % Seg Neuts % (Manual) Lymphocytes % (Manual) Monocytes % (Manual) Seg Neutrophils # Seg Neutrophils # Man Lymphocytes # (Manual) Monocytes # (Manual) POC ABG pH POC ABG pCO2 POC ABG pO2 Sodium Chloride Carbon Dioxide BUN Creatinine 0.7 L Glucose 180 H POC Glucose 172 H Lactic Acid Phosphorus Magnesium Total Creatine Kinase CK-MB (CK-2) Triglycerides Ur Specific [place] 01/25/17 01/25/17 01/25/17 09:42 13:10 17:30 WBC RBC Hgb Hct RDW Plt Count [place] % (Auto) [place] # Seg Neutrophils % Seg Neuts % (Manual) Lymphocytes % (Manual) Monocytes % (Manual) Seg Neutrophils # Seg Neutrophils # Man Lymphocytes # (Manual) Monocytes # (Manual) POC ABG pH POC ABG pCO2 POC ABG pO2 Sodium Chloride Carbon Dioxide BUN Creatinine Glucose POC Glucose 177 H 190 H 179 H Lactic Acid Phosphorus Magnesium Total Creatine Kinase CK-MB (CK-2) Triglycerides Ur Specific [place] 01/25/17 01/26/17 01/26/17 21:25 00:00 05:23 WBC RBC Hgb Hct RDW Plt Count [place] % (Auto) [place] # Seg Neutrophils % Seg Neuts % (Manual) Lymphocytes % (Manual) Monocytes % (Manual) Seg Neutrophils # Seg Neutrophils # Man Lymphocytes # (Manual) Monocytes # (Manual) POC ABG pH POC ABG pCO2 POC ABG pO2 Sodium Chloride Carbon Dioxide BUN Creatinine Glucose POC Glucose 168 H 179 H 173 H Lactic Acid Phosphorus Magnesium Total Creatine Kinase CK-MB (CK-2) Triglycerides Ur Specific [place] 01/26/17 01/26/17 01/26/17 05:46 05:46 05:58 WBC 30.6 H RBC Hgb Hct RDW Plt Count [place] % (Auto) [place] # Seg Neutrophils % Seg Neuts % (Manual) 93.0 H Lymphocytes % (Manual) 5.0 L Monocytes % (Manual) Seg Neutrophils # Seg Neutrophils # Man 28.5 H Lymphocytes # (Manual) Monocytes # (Manual) POC ABG pH 7.472 H POC ABG pCO2 45.8 H POC ABG pO2 Sodium Chloride Carbon Dioxide BUN 28 H Creatinine Glucose 187 H POC Glucose Lactic Acid Phosphorus Magnesium Total Creatine Kinase CK-MB (CK-2) Triglycerides Ur Specific [place] 01/26/17 01/26/17 01/26/17 08:00 09:55 13:23 WBC RBC Hgb Hct RDW Plt Count [place] % (Auto) [place] # Seg Neutrophils % Seg Neuts % (Manual) Lymphocytes % (Manual) Monocytes % (Manual) Seg Neutrophils # Seg Neutrophils # Man Lymphocytes # (Manual) Monocytes # (Manual) POC ABG pH POC ABG pCO2 POC ABG pO2 Sodium Chloride Carbon Dioxide BUN Creatinine Glucose POC Glucose 162 H 191 H Lactic Acid Phosphorus Magnesium Total Creatine Kinase CK-MB (CK-2) Triglycerides 235 H Ur Specific [place] 01/26/17 01/26/17 01/27/17 17:53 21:30 01:49 WBC RBC Hgb Hct RDW Plt Count [place] % (Auto) [place] # Seg Neutrophils % Seg Neuts % (Manual) Lymphocytes % (Manual) Monocytes % (Manual) Seg Neutrophils # Seg Neutrophils # Man Lymphocytes # (Manual) Monocytes # (Manual) POC ABG pH POC ABG pCO2 POC ABG pO2 Sodium Chloride Carbon Dioxide BUN Creatinine Glucose POC Glucose 182 H 247 H 210 H Lactic Acid Phosphorus Magnesium Total Creatine Kinase CK-MB (CK-2) Triglycerides Ur Specific [place] 01/27/17 01/27/17 01/27/17 04:14 04:14 05:03 WBC RBC 3.27 L Hgb 9.4 L D Hct 29.4 L D RDW 18.2 H Plt Count 113 L [place] % (Auto) [place] # Seg Neutrophils % Seg Neuts % (Manual) 84.0 H Lymphocytes % (Manual) 4.0 L Monocytes % (Manual) Seg Neutrophils # Seg Neutrophils # Man Lymphocytes # (Manual) 0.2 L Monocytes # (Manual) POC ABG pH POC ABG pCO2 49.0 H POC ABG pO2 Sodium Chloride Carbon Dioxide BUN 33 H Creatinine Glucose 226 H POC Glucose Lactic Acid Phosphorus Magnesium Total Creatine Kinase CK-MB (CK-2) Triglycerides Ur Specific [place] 01/27/17 01/27/17 01/27/17 05:45 09:59 14:42 WBC RBC Hgb Hct RDW Plt Count [place] % (Auto) [place] # Seg Neutrophils % Seg Neuts % (Manual) Lymphocytes % (Manual) Monocytes % (Manual) Seg Neutrophils # Seg Neutrophils # Man Lymphocytes # (Manual) Monocytes # (Manual) POC ABG pH POC ABG pCO2 POC ABG pO2 Sodium Chloride Carbon Dioxide BUN Creatinine Glucose POC Glucose 229 H 266 H 257 H Lactic Acid Phosphorus Magnesium Total Creatine Kinase CK-MB (CK-2) Triglycerides Ur Specific [place] 01/27/17 01/27/17 01/28/17 17:28 21:54 02:00 WBC RBC Hgb Hct RDW Plt Count [place] % (Auto) [place] # Seg Neutrophils % Seg Neuts % (Manual) Lymphocytes % (Manual) Monocytes % (Manual) Seg Neutrophils # Seg Neutrophils # Man Lymphocytes # (Manual) Monocytes # (Manual) POC ABG pH POC ABG pCO2 POC ABG pO2 Sodium Chloride Carbon Dioxide BUN Creatinine Glucose POC Glucose 236 H 254 H 288 H Lactic Acid Phosphorus Magnesium Total Creatine Kinase CK-MB (CK-2) Triglycerides Ur Specific [place] 01/28/17 01/28/17 01/28/17 04:43 05:17 05:18 WBC RBC Hgb Hct RDW Plt Count [place] % (Auto) [place] # Seg Neutrophils % Seg Neuts % (Manual) Lymphocytes % (Manual) Monocytes % (Manual) Seg Neutrophils # Seg Neutrophils # Man Lymphocytes # (Manual) Monocytes # (Manual) POC ABG pH POC ABG pCO2 47.4 H POC ABG pO2 112 H Sodium Chloride Carbon Dioxide 33 H D BUN 38 H Creatinine 0.7 L D Glucose 270 H POC Glucose 198 H Lactic Acid Phosphorus Magnesium Total Creatine Kinase CK-MB (CK-2) Triglycerides Ur Specific [place] 01/28/17 01/28/17 01/28/17 07:06 10:11 14:14 WBC 31.0 H RBC Hgb Hct RDW Plt Count [place] % (Auto) [place] # Seg Neutrophils % Seg Neuts % (Manual) 93.0 H Lymphocytes % (Manual) 0.5 L Monocytes % (Manual) Seg Neutrophils # Seg Neutrophils # Man 28.8 H Lymphocytes # (Manual) 0.2 L Monocytes # (Manual) 2.0 H POC ABG pH POC ABG pCO2 POC ABG pO2 Sodium Chloride Carbon Dioxide BUN Creatinine Glucose POC Glucose 247 H 251 H Lactic Acid Phosphorus Magnesium Total Creatine Kinase CK-MB (CK-2) Triglycerides Ur Specific [place] 01/28/17 01/28/17 01/29/17 18:47 21:28 01:57 WBC RBC Hgb Hct RDW Plt Count [place] % (Auto) [place] # Seg Neutrophils % Seg Neuts % (Manual) Lymphocytes % (Manual) Monocytes % (Manual) Seg Neutrophils # Seg Neutrophils # Man Lymphocytes # (Manual) Monocytes # (Manual) POC ABG pH POC ABG pCO2 POC ABG pO2 Sodium Chloride Carbon Dioxide BUN Creatinine Glucose POC Glucose 239 H 254 H 209 H Lactic Acid Phosphorus Magnesium Total Creatine Kinase CK-MB (CK-2) Triglycerides Ur Specific [place] 01/29/17 01/29/17 01/29/17 04:04 04:04 04:24 WBC 29.7 H RBC Hgb Hct RDW Plt Count [place] % (Auto) 10.3 H [place] # 3.5 H Seg Neutrophils % 84.0 H Seg Neuts % (Manual) 86.0 H Lymphocytes % (Manual) 5.5 L Monocytes % (Manual) 8.5 H Seg Neutrophils # 28.5 H Seg Neutrophils # Man 25.5 H Lymphocytes # (Manual) Monocytes # (Manual) 2.5 H POC ABG pH 7.454 H POC ABG pCO2 49.3 H POC ABG pO2 Sodium 149 H Chloride Carbon Dioxide BUN 29 H Creatinine Glucose 164 H POC Glucose Lactic Acid Phosphorus Magnesium Total Creatine Kinase CK-MB (CK-2) Triglycerides Ur Specific [place] 01/29/17 01/29/17 01/29/17 05:23 09:48 13:12 WBC RBC Hgb Hct RDW Plt Count [place] % (Auto) [place] # Seg Neutrophils % Seg Neuts % (Manual) Lymphocytes % (Manual) Monocytes % (Manual) Seg Neutrophils # Seg Neutrophils # Man Lymphocytes # (Manual) Monocytes # (Manual) POC ABG pH POC ABG pCO2 POC ABG pO2 Sodium Chloride Carbon Dioxide BUN Creatinine Glucose POC Glucose 146 H 215 H 262 H Lactic Acid Phosphorus Magnesium Total Creatine Kinase CK-MB (CK-2) Triglycerides Ur Specific [place] 01/29/17 01/29/17 01/30/17 18:11 21:26 01:44 WBC RBC Hgb Hct RDW Plt Count [place] % (Auto) [place] # Seg Neutrophils % Seg Neuts % (Manual) Lymphocytes % (Manual) Monocytes % (Manual) Seg Neutrophils # Seg Neutrophils # Man Lymphocytes # (Manual) Monocytes # (Manual) POC ABG pH POC ABG pCO2 POC ABG pO2 Sodium Chloride Carbon Dioxide BUN Creatinine Glucose POC Glucose 228 H 211 H 202 H Lactic Acid Phosphorus Magnesium Total Creatine Kinase CK-MB (CK-2) Triglycerides Ur Specific [place] 01/30/17 01/30/17 01/30/17 04:29 05:34 06:50 WBC 33.1 H RBC 5.08 H Hgb 15.3 H Hct 46.5 H RDW Plt Count [place] % (Auto) [place] # Seg Neutrophils % Seg Neuts % (Manual) 73.0 H Lymphocytes % (Manual) 10.0 L Monocytes % (Manual) Seg Neutrophils # Seg Neutrophils # Man 24.2 H Lymphocytes # (Manual) Monocytes # (Manual) 2.0 H POC ABG pH POC ABG pCO2 54.9 H POC ABG pO2 135 H Sodium Chloride Carbon Dioxide BUN Creatinine Glucose POC Glucose 198 H Lactic Acid Phosphorus Magnesium Total Creatine Kinase CK-MB (CK-2) Triglycerides Ur Specific [place] 01/30/17 01/30/17 01/30/17 06:50 10:06 13:46 WBC RBC Hgb Hct RDW Plt Count [place] % (Auto) [place] # Seg Neutrophils % Seg Neuts % (Manual) Lymphocytes % (Manual) Monocytes % (Manual) Seg Neutrophils # Seg Neutrophils # Man Lymphocytes # (Manual) Monocytes # (Manual) POC ABG pH POC ABG pCO2 POC ABG pO2 Sodium 146 H Chloride Carbon Dioxide BUN 28 H Creatinine Glucose 234 H POC Glucose 247 H 254 H Lactic Acid Phosphorus Magnesium Total Creatine Kinase CK-MB (CK-2) Triglycerides Ur Specific [place] 01/30/17 01/30/17 01/30/17 13:50 17:50 22:04 WBC RBC Hgb Hct RDW Plt Count [place] % (Auto) [place] # Seg Neutrophils % Seg Neuts % (Manual) Lymphocytes % (Manual) Monocytes % (Manual) Seg Neutrophils # Seg Neutrophils # Man Lymphocytes # (Manual) Monocytes # (Manual) POC ABG pH POC ABG pCO2 POC ABG pO2 Sodium Chloride Carbon Dioxide BUN Creatinine Glucose POC Glucose 317 H 194 H Lactic Acid Phosphorus Magnesium Total Creatine Kinase CK-MB (CK-2) Triglycerides Ur Specific [place] 1.034 H 01/31/17 01/31/17 01/31/17 01:46 03:23 03:23 WBC 33.0 H RBC 5.05 H Hgb Hct 45.9 H RDW Plt Count [place] % (Auto) [place] # Seg Neutrophils % Seg Neuts % (Manual) 86.5 H Lymphocytes % (Manual) 8.5 L Monocytes % (Manual) Seg Neutrophils # Seg Neutrophils # Man 28.5 H Lymphocytes # (Manual) Monocytes # (Manual) 1.3 H POC ABG pH POC ABG pCO2 POC ABG pO2 Sodium 152 H Chloride 107.4 H Carbon Dioxide 35 H D BUN 28 H Creatinine Glucose 205 H POC Glucose 167 H Lactic Acid Phosphorus Magnesium Total Creatine Kinase CK-MB (CK-2) Triglycerides Ur Specific [place] 01/31/17 01/31/17 04:31 05:34 WBC RBC Hgb Hct RDW Plt Count [place] % (Auto) [place] # Seg Neutrophils % Seg Neuts % (Manual) Lymphocytes % (Manual) Monocytes % (Manual) Seg Neutrophils # Seg Neutrophils # Man Lymphocytes # (Manual) Monocytes # (Manual) POC ABG pH 7.521 H POC ABG pCO2 POC ABG pO2 Sodium Chloride Carbon Dioxide BUN Creatinine Glucose POC Glucose 174 H Lactic Acid Phosphorus Magnesium Total Creatine Kinase CK-MB (CK-2) Triglycerides Ur Specific [place]
[2017-01-31 13:10] LABS: ISTAT Base Excess 11; ISTAT HCO3 34.2; ISTAT PCO2 42.1 (35-45); ISTAT PH 7.518 (7.35-7.45); ISTAT PO2 84 (80-105); ISTAT SO2 97; ISTAT TCO2 35
[2017-01-31] MEDS ORDERED: PANCREAZE DR 10,500 UNIT FEEDTUBE PRN (15:49)
[2017-01-31] MEDS ORDERED: SODIUM BICARBONATE FEEDTUBE PRN (15:49)
[2017-01-31] MEDS ORDERED: SIMPLE SYRUP FEEDTUBE PRN ×2 (15:49)
--- NOTE | 2017-01-31 18:59 | Progress Note ---
Assessment and Plan Imp: 1. Asthma exac. 2. s/p CP arrest 3. Anoxic enceph. 4. SIRS, ? withdrawal syndrome (see admit UDS); sepsis work-up negative 5. Leukocytosis, suspect stress/steroid-related 6. Hypernatremia Rec: 1. F/u repeat cultures 2. Reduce Solumedrol 3. PSV trials but mentation precludes extubation; will need trach/peg, d/w mother 4. Increase free water + low-rate 1/2 NS 5. TFs, supportive care 6. Prognosis appears poor for meaningful functional recovery CCT 31 minutes Plan of care reviewed w/ mother, she understands/agrees Subjective Date of service: 01/31/17 Principal diagnosis: s/p cardiopulmonary arrest Interval history: + Fever. He is unresponsive on the ventilator and cannot provide history. Active Medications Acetaminophen (Tylenol) 650 mg PO Q4H PRN PRN Reason: Pain MILD(1-3)/Fever >100.5/YOUNG Last Admin: 01/31/17 15:32 Dose: 650 mg Albuterol (Proventil) 2.5 mg IH Q6HRT PRN PRN Reason: Shortness Of Breath Last Admin: 01/27/17 15:10 Dose: 2.5 mg Lipase/Protease/Amylase (Pancreaze Dr 10,500 Unit) 1 each FEEDTUBE PRN PRN PRN Reason: For Clogged Feeding Tube Arformoterol Tartrate (Brovana Nebu) 15 mcg IH Q12HRT [facility] Last Admin: 01/31/17 07:26 Dose: 15 mcg Budesonide (Pulmicort) 0.5 mg IH Q12HRT [facility] Last Admin: 01/31/17 07:26 Dose: 0.5 mg Folic Acid (Folvite) 1 mg PO QDAY [facility] Last Admin: 01/31/17 10:20 Dose: 1 mg Haloperidol Lactate (Haldol) 5 mg IV Q6H PRN PRN Reason: Agitation Last Admin: 01/31/17 03:14 Dose: 5 mg Hydrophilic Ointment (Vaseline Lip Therapy) 1 applic TP Q2HR PRN PRN Reason: Dry Lips Norepinephrine (Levophed Drip 4 Mg/Ns 250 Ml) 4 mg in 250 mls @ 7.5 mls/hr IV TITR [place]; 2 MCG/MIN PRN Reason: Protocol Last Titration: 01/23/17 09:05 Dose: 0 mcg/min, 0 mls/hr Propofol (Diprivan 10 Mg/Ml) 1,000 mg in 100 mls @ 2.517 mls/hr IV TITR [place]; 5 MCG/KG/MIN PRN Reason: Protocol Last Admin: 01/28/17 03:33 Dose: 10 mcg/kg/min, 5.035 mls/hr Sodium Chloride (Nacl 0.45% 1000 Ml) 1,000 mls @ 50 mls/hr IV DIRECT [place] Insulin Detemir (Levemir) 10 units SUB-Q DAILY [facility] Last Admin: 01/31/17 10:20 Dose: 10 units Insulin Human Regular (Novolin R) 0 units SUB-Q Q4HR [place] PRN Reason: Protocol Last Admin: 01/31/17 15:00 Dose: 6 units Levetiracetam (Keppra) 500 mg PO BID [facility] Last Admin: 01/31/17 10:19 Dose: 500 mg Lorazepam (Ativan) 1 mg IV Q2H PRN PRN Reason: TWITCHES Last Admin: 01/31/17 01:03 Dose: 1 mg Methylprednisolone Sodium Succinate (Solu-Medrol) 60 mg IV DAILY [facility] Last Admin: 01/31/17 10:20 Dose: 60 mg Multi-Ingred Cream/Lotion/Oil/Oint (Artificial Tears Ophth Oint) 1 applic OU Q4HR PRN PRN Reason: Dry Eye(s) Ondansetron HCl (Zofran) 4 mg IV Q8H PRN PRN Reason: N/V unrelieved by [place]y Last Admin: 01/28/17 03:33 Dose: 4 mg Pantoprazole (Protonix) 40 mg FEEDTUBE DAILY [facility] Last Admin: 01/31/17 10:20 Dose: 40 mg Simple Syrup (Simple Syrup) 15 ml FEEDTUBE PRN PRN PRN Reason: Hypoglycemia Simple Syrup (Simple Syrup) 30 ml FEEDTUBE PRN PRN PRN Reason: Hypoglycemia Sodium Bicarbonate (Sodium Bicarbonate) 325 mg FEEDTUBE PRN PRN PRN Reason: For Clogged Feeding Tube Sodium Chloride (Nacl 0.9% 500 Ml) 1 ml IV DIRECT [place] Thiamine HCl (Vitamin B-1) 100 mg PO QDAY [facility] Last Admin: 01/31/17 10:20 Dose: 100 mg Objective Vital Signs - 12hr 01/31/17 01/31/17 01/31/17 07:00 07:22 07:33 Temperature Pulse Rate 123 H 122 H Pulse Rate [ 122 H 122 H Anterior Bilateral Throughout] Pulse Rate [ From Monitor] Pulse Rate [ Right Dorsalis Pedis] Respiratory 19 Rate Respiratory 20 17 Rate [Anterior Bilateral Throughout] Blood Pressure 114/72 114/72 O2 Sat by Pulse 90 97 Oximetry 01/31/17 01/31/17 01/31/17 08:00 09:00 10:00 Temperature 101.9 F H Pulse Rate 125 H 123 H 126 H Pulse Rate [ Anterior Bilateral Throughout] Pulse Rate [ 120 H From Monitor] Pulse Rate [ Right Dorsalis Pedis] Respiratory 19 18 13 Rate Respiratory Rate [Anterior Bilateral Throughout] Blood Pressure 112/65 118/65 119/71 O2 Sat by Pulse 92 92 93 Oximetry 01/31/17 01/31/17 01/31/17 11:00 11:30 11:33 Temperature Pulse Rate 118 H 114 H 119 H Pulse Rate [ Anterior Bilateral Throughout] Pulse Rate [ From Monitor] Pulse Rate [ Right Dorsalis Pedis] Respiratory 23 19 Rate Respiratory Rate [Anterior Bilateral Throughout] Blood Pressure 109/71 109/71 109/71 O2 Sat by Pulse 96 96 96 Oximetry 01/31/17 01/31/17 01/31/17 12:00 12:38 13:00 Temperature 101.3 F H Pulse Rate 119 H 120 H 126 H Pulse Rate [ Anterior Bilateral Throughout] Pulse Rate [ 122 H From Monitor] Pulse Rate [ Right Dorsalis Pedis] Respiratory 16 16 38 H Rate Respiratory Rate [Anterior Bilateral Throughout] Blood Pressure 114/72 114/72 118/77 O2 Sat by Pulse 92 97 89 Oximetry 01/31/17 01/31/17 01/31/17 14:00 15:00 16:00 Temperature 100.6 F H Pulse Rate 117 H 115 H 121 H Pulse Rate [ Anterior Bilateral Throughout] Pulse Rate [ From Monitor] Pulse Rate [ 116 H Right Dorsalis Pedis] Respiratory 18 26 H 31 H Rate Respiratory Rate [Anterior Bilateral Throughout] Blood Pressure 118/70 113/69 113/63 O2 Sat by Pulse 94 94 89 Oximetry 01/31/17 01/31/17 16:12 17:00 Temperature Pulse Rate 118 H 116 H Pulse Rate [ Anterior Bilateral Throughout] Pulse Rate [ From Monitor] Pulse Rate [ Right Dorsalis Pedis] Respiratory 17 17 Rate Respiratory Rate [Anterior Bilateral Throughout] Blood Pressure 113/63 104/68 O2 Sat by Pulse 96 92 Oximetry Constitutional: no acute distress, comatose (secondary to medications) Eyes: non-icteric ENT: other (orally intubated sedated) Neck: supple Effort: normal Ascultation: Bilateral: other (coarse BS bilaterally) Cardiovascular: other (RR, sinus tachy, no mrg) Gastrointestinal: normoactive bowel sounds, soft, non-tender, non-distended Integumentary: normal Extremities: no cyanosis, no edema, pink and warm, pulses normal Neurologic: other (unresponsive) Psychiatric: other (unable to assess) CBC and BMP: 01/31/17 03:23 01/31/17 03:23 ABG, PT/INR, D-dimer: ABG POC ABG pH 7.518 (7.35-7.45) H 01/31/17 12:57 POC ABG pCO2 42.1 (35-45) 01/31/17 12:57 POC ABG pO2 84 (80-105) 01/31/17 12:57 POC ABG HCO3 34.2 01/31/17 12:57 POC ABG Total CO2 35 01/31/17 12:57 POC ABG O2 Sat 97 01/31/17 12:57 PT/INR, D-dimer PT 13.5 Sec. (12.2-14.9) 01/23/17 04:22 INR 0.98 (0.87-1.13) 01/23/17 04:22 D-Dimer 204.60 ng/mlDDU (0-234) 01/23/17 Unknown Abnormal lab findings: Abnormal Labs 01/23/17 01/23/17 01/23/17 07:37 10:24 12:27 WBC RBC Hgb Hct RDW Plt Count [place] % (Auto) [place] # Seg Neutrophils % Seg Neuts % (Manual) Lymphocytes % (Manual) Monocytes % (Manual) Seg Neutrophils # Seg Neutrophils # Man Lymphocytes # (Manual) Monocytes # (Manual) POC ABG pH POC ABG pCO2 POC ABG pO2 Sodium Chloride Carbon Dioxide BUN Creatinine Glucose POC Glucose Lactic Acid Phosphorus Magnesium 3.30 H Total Creatine Kinase 503 H 523 H CK-MB (CK-2) 6.9 H 9.2 H Triglycerides Ur Specific [place] 01/23/17 01/23/17 01/23/17 12:27 16:50 21:21 WBC RBC Hgb Hct RDW Plt Count [place] % (Auto) [place] # Seg Neutrophils % Seg Neuts % (Manual) Lymphocytes % (Manual) Monocytes % (Manual) Seg Neutrophils # Seg Neutrophils # Man Lymphocytes # (Manual) Monocytes # (Manual) POC ABG pH POC ABG pCO2 POC ABG pO2 Sodium Chloride Carbon Dioxide BUN Creatinine Glucose POC Glucose 166 H 158 H Lactic Acid Phosphorus 1.30 L Magnesium Total Creatine Kinase CK-MB (CK-2) Triglycerides Ur Specific [place] 01/24/17 01/24/17 01/24/17 01:49 03:38 03:38 WBC 24.7 H RBC Hgb Hct RDW Plt Count 45 L [place] % (Auto) [place] # Seg Neutrophils % Seg Neuts % (Manual) 77.0 H Lymphocytes % (Manual) 6.0 L Monocytes % (Manual) Seg Neutrophils # Seg Neutrophils # Man 19.0 H Lymphocytes # (Manual) Monocytes # (Manual) 1.5 H POC ABG pH POC ABG pCO2 POC ABG pO2 Sodium 136 L D Chloride 97.3 L Carbon Dioxide BUN Creatinine 0.7 L Glucose 197 H POC Glucose 183 H Lactic Acid Phosphorus Magnesium Total Creatine Kinase CK-MB (CK-2) Triglycerides Ur Specific [place] 01/24/17 01/24/17 01/24/17 04:46 05:04 09:00 WBC RBC Hgb Hct RDW Plt Count [place] % (Auto) [place] # Seg Neutrophils % Seg Neuts % (Manual) Lymphocytes % (Manual) Monocytes % (Manual) Seg Neutrophils # Seg Neutrophils # Man Lymphocytes # (Manual) Monocytes # (Manual) POC ABG pH 7.472 H POC ABG pCO2 POC ABG pO2 Sodium Chloride Carbon Dioxide BUN Creatinine Glucose POC Glucose 193 H 220 H Lactic Acid Phosphorus Magnesium Total Creatine Kinase CK-MB (CK-2) Triglycerides Ur Specific [place] 01/24/17 01/24/17 01/24/17 12:26 14:07 18:00 WBC RBC Hgb Hct RDW Plt Count [place] % (Auto) [place] # Seg Neutrophils % Seg Neuts % (Manual) Lymphocytes % (Manual) Monocytes % (Manual) Seg Neutrophils # Seg Neutrophils # Man Lymphocytes # (Manual) Monocytes # (Manual) POC ABG pH POC ABG pCO2 POC ABG pO2 Sodium Chloride Carbon Dioxide BUN Creatinine Glucose POC Glucose 194 H 163 H Lactic Acid 2.30 H* Phosphorus Magnesium Total Creatine Kinase CK-MB (CK-2) Triglycerides Ur Specific [place] 01/24/17 01/25/17 01/25/17 22:39 02:20 04:36 WBC RBC Hgb Hct RDW Plt Count [place] % (Auto) [place] # Seg Neutrophils % Seg Neuts % (Manual) Lymphocytes % (Manual) Monocytes % (Manual) Seg Neutrophils # Seg Neutrophils # Man Lymphocytes # (Manual) Monocytes # (Manual) POC ABG pH POC ABG pCO2 46.7 H POC ABG pO2 Sodium Chloride Carbon Dioxide BUN Creatinine Glucose POC Glucose 215 H 194 H Lactic Acid Phosphorus Magnesium Total Creatine Kinase CK-MB (CK-2) Triglycerides Ur Specific [place] 01/25/17 01/25/17 01/25/17 05:37 05:37 06:03 WBC 34.5 H RBC Hgb Hct RDW Plt Count [place] % (Auto) [place] # Seg Neutrophils % Seg Neuts % (Manual) Lymphocytes % (Manual) Monocytes % (Manual) Seg Neutrophils # Seg Neutrophils # Man Lymphocytes # (Manual) Monocytes # (Manual) POC ABG pH POC ABG pCO2 POC ABG pO2 Sodium Chloride Carbon Dioxide BUN Creatinine 0.7 L Glucose 180 H POC Glucose 172 H Lactic Acid Phosphorus Magnesium Total Creatine Kinase CK-MB (CK-2) Triglycerides Ur Specific [place] 01/25/17 01/25/17 01/25/17 09:42 13:10 17:30 WBC RBC Hgb Hct RDW Plt Count [place] % (Auto) [place] # Seg Neutrophils % Seg Neuts % (Manual) Lymphocytes % (Manual) Monocytes % (Manual) Seg Neutrophils # Seg Neutrophils # Man Lymphocytes # (Manual) Monocytes # (Manual) POC ABG pH POC ABG pCO2 POC ABG pO2 Sodium Chloride Carbon Dioxide BUN Creatinine Glucose POC Glucose 177 H 190 H 179 H Lactic Acid Phosphorus Magnesium Total Creatine Kinase CK-MB (CK-2) Triglycerides Ur Specific [place] 01/25/17 01/26/17 01/26/17 21:25 00:00 05:23 WBC RBC Hgb Hct RDW Plt Count [place] % (Auto) [place] # Seg Neutrophils % Seg Neuts % (Manual) Lymphocytes % (Manual) Monocytes % (Manual) Seg Neutrophils # Seg Neutrophils # Man Lymphocytes # (Manual) Monocytes # (Manual) POC ABG pH POC ABG pCO2 POC ABG pO2 Sodium Chloride Carbon Dioxide BUN Creatinine Glucose POC Glucose 168 H 179 H 173 H Lactic Acid Phosphorus Magnesium Total Creatine Kinase CK-MB (CK-2) Triglycerides Ur Specific [place] 01/26/17 01/26/17 01/26/17 05:46 05:46 05:58 WBC 30.6 H RBC Hgb Hct RDW Plt Count [place] % (Auto) [place] # Seg Neutrophils % Seg Neuts % (Manual) 93.0 H Lymphocytes % (Manual) 5.0 L Monocytes % (Manual) Seg Neutrophils # Seg Neutrophils # Man 28.5 H Lymphocytes # (Manual) Monocytes # (Manual) POC ABG pH 7.472 H POC ABG pCO2 45.8 H POC ABG pO2 Sodium Chloride Carbon Dioxide BUN 28 H Creatinine Glucose 187 H POC Glucose Lactic Acid Phosphorus Magnesium Total Creatine Kinase CK-MB (CK-2) Triglycerides Ur Specific [place] 01/26/17 01/26/17 01/26/17 08:00 09:55 13:23 WBC RBC Hgb Hct RDW Plt Count [place] % (Auto) [place] # Seg Neutrophils % Seg Neuts % (Manual) Lymphocytes % (Manual) Monocytes % (Manual) Seg Neutrophils # Seg Neutrophils # Man Lymphocytes # (Manual) Monocytes # (Manual) POC ABG pH POC ABG pCO2 POC ABG pO2 Sodium Chloride Carbon Dioxide BUN Creatinine Glucose POC Glucose 162 H 191 H Lactic Acid Phosphorus Magnesium Total Creatine Kinase CK-MB (CK-2) Triglycerides 235 H Ur Specific [place] 01/26/17 01/26/17 01/27/17 17:53 21:30 01:49 WBC RBC Hgb Hct RDW Plt Count [place] % (Auto) [place] # Seg Neutrophils % Seg Neuts % (Manual) Lymphocytes % (Manual) Monocytes % (Manual) Seg Neutrophils # Seg Neutrophils # Man Lymphocytes # (Manual) Monocytes # (Manual) POC ABG pH POC ABG pCO2 POC ABG pO2 Sodium Chloride Carbon Dioxide BUN Creatinine Glucose POC Glucose 182 H 247 H 210 H Lactic Acid Phosphorus Magnesium Total Creatine Kinase CK-MB (CK-2) Triglycerides Ur Specific [place] 01/27/17 01/27/17 01/27/17 04:14 04:14 05:03 WBC RBC 3.27 L Hgb 9.4 L D Hct 29.4 L D RDW 18.2 H Plt Count 113 L [place] % (Auto) [place] # Seg Neutrophils % Seg Neuts % (Manual) 84.0 H Lymphocytes % (Manual) 4.0 L Monocytes % (Manual) Seg Neutrophils # Seg Neutrophils # Man Lymphocytes # (Manual) 0.2 L Monocytes # (Manual) POC ABG pH POC ABG pCO2 49.0 H POC ABG pO2 Sodium Chloride Carbon Dioxide BUN 33 H Creatinine Glucose 226 H POC Glucose Lactic Acid Phosphorus Magnesium Total Creatine Kinase CK-MB (CK-2) Triglycerides Ur Specific [place] 01/27/17 01/27/17 01/27/17 05:45 09:59 14:42 WBC RBC Hgb Hct RDW Plt Count [place] % (Auto) [place] # Seg Neutrophils % Seg Neuts % (Manual) Lymphocytes % (Manual) Monocytes % (Manual) Seg Neutrophils # Seg Neutrophils # Man Lymphocytes # (Manual) Monocytes # (Manual) POC ABG pH POC ABG pCO2 POC ABG pO2 Sodium Chloride Carbon Dioxide BUN Creatinine Glucose POC Glucose 229 H 266 H 257 H Lactic Acid Phosphorus Magnesium Total Creatine Kinase CK-MB (CK-2) Triglycerides Ur Specific [place] 01/27/17 01/27/17 01/28/17 17:28 21:54 02:00 WBC RBC Hgb Hct RDW Plt Count [place] % (Auto) [place] # Seg Neutrophils % Seg Neuts % (Manual) Lymphocytes % (Manual) Monocytes % (Manual) Seg Neutrophils # Seg Neutrophils # Man Lymphocytes # (Manual) Monocytes # (Manual) POC ABG pH POC ABG pCO2 POC ABG pO2 Sodium Chloride Carbon Dioxide BUN Creatinine Glucose POC Glucose 236 H 254 H 288 H Lactic Acid Phosphorus Magnesium Total Creatine Kinase CK-MB (CK-2) Triglycerides Ur Specific [place] 01/28/17 01/28/17 01/28/17 04:43 05:17 05:18 WBC RBC Hgb Hct RDW Plt Count [place] % (Auto) [place] # Seg Neutrophils % Seg Neuts % (Manual) Lymphocytes % (Manual) Monocytes % (Manual) Seg Neutrophils # Seg Neutrophils # Man Lymphocytes # (Manual) Monocytes # (Manual) POC ABG pH POC ABG pCO2 47.4 H POC ABG pO2 112 H Sodium Chloride Carbon Dioxide 33 H D BUN 38 H Creatinine 0.7 L D Glucose 270 H POC Glucose 198 H Lactic Acid Phosphorus Magnesium Total Creatine Kinase CK-MB (CK-2) Triglycerides Ur Specific [place] 01/28/17 01/28/17 01/28/17 07:06 10:11 14:14 WBC 31.0 H RBC Hgb Hct RDW Plt Count [place] % (Auto) [place] # Seg Neutrophils % Seg Neuts % (Manual) 93.0 H Lymphocytes % (Manual) 0.5 L Monocytes % (Manual) Seg Neutrophils # Seg Neutrophils # Man 28.8 H Lymphocytes # (Manual) 0.2 L Monocytes # (Manual) 2.0 H POC ABG pH POC ABG pCO2 POC ABG pO2 Sodium Chloride Carbon Dioxide BUN Creatinine Glucose POC Glucose 247 H 251 H Lactic Acid Phosphorus Magnesium Total Creatine Kinase CK-MB (CK-2) Triglycerides Ur Specific [place] 01/28/17 01/28/17 01/29/17 18:47 21:28 01:57 WBC RBC Hgb Hct RDW Plt Count [place] % (Auto) [place] # Seg Neutrophils % Seg Neuts % (Manual) Lymphocytes % (Manual) Monocytes % (Manual) Seg Neutrophils # Seg Neutrophils # Man Lymphocytes # (Manual) Monocytes # (Manual) POC ABG pH POC ABG pCO2 POC ABG pO2 Sodium Chloride Carbon Dioxide BUN Creatinine Glucose POC Glucose 239 H 254 H 209 H Lactic Acid Phosphorus Magnesium Total Creatine Kinase CK-MB (CK-2) Triglycerides Ur Specific [place] 01/29/17 01/29/17 01/29/17 04:04 04:04 04:24 WBC 29.7 H RBC Hgb Hct RDW Plt Count [place] % (Auto) 10.3 H [place] # 3.5 H Seg Neutrophils % 84.0 H Seg Neuts % (Manual) 86.0 H Lymphocytes % (Manual) 5.5 L Monocytes % (Manual) 8.5 H Seg Neutrophils # 28.5 H Seg Neutrophils # Man 25.5 H Lymphocytes # (Manual) Monocytes # (Manual) 2.5 H POC ABG pH 7.454 H POC ABG pCO2 49.3 H POC ABG pO2 Sodium 149 H Chloride Carbon Dioxide BUN 29 H Creatinine Glucose 164 H POC Glucose Lactic Acid Phosphorus Magnesium Total Creatine Kinase CK-MB (CK-2) Triglycerides Ur Specific [place] 01/29/17 01/29/17 01/29/17 05:23 09:48 13:12 WBC RBC Hgb Hct RDW Plt Count [place] % (Auto) [place] # Seg Neutrophils % Seg Neuts % (Manual) Lymphocytes % (Manual) Monocytes % (Manual) Seg Neutrophils # Seg Neutrophils # Man Lymphocytes # (Manual) Monocytes # (Manual) POC ABG pH POC ABG pCO2 POC ABG pO2 Sodium Chloride Carbon Dioxide BUN Creatinine Glucose POC Glucose 146 H 215 H 262 H Lactic Acid Phosphorus Magnesium Total Creatine Kinase CK-MB (CK-2) Triglycerides Ur Specific [place] 01/29/17 01/29/17 01/30/17 18:11 21:26 01:44 WBC RBC Hgb Hct RDW Plt Count [place] % (Auto) [place] # Seg Neutrophils % Seg Neuts % (Manual) Lymphocytes % (Manual) Monocytes % (Manual) Seg Neutrophils # Seg Neutrophils # Man Lymphocytes # (Manual) Monocytes # (Manual) POC ABG pH POC ABG pCO2 POC ABG pO2 Sodium Chloride Carbon Dioxide BUN Creatinine Glucose POC Glucose 228 H 211 H 202 H Lactic Acid Phosphorus Magnesium Total Creatine Kinase CK-MB (CK-2) Triglycerides Ur Specific [place] 01/30/17 01/30/17 01/30/17 04:29 05:34 06:50 WBC 33.1 H RBC 5.08 H Hgb 15.3 H Hct 46.5 H RDW Plt Count [place] % (Auto) [place] # Seg Neutrophils % Seg Neuts % (Manual) 73.0 H Lymphocytes % (Manual) 10.0 L Monocytes % (Manual) Seg Neutrophils # Seg Neutrophils # Man 24.2 H Lymphocytes # (Manual) Monocytes # (Manual) 2.0 H POC ABG pH POC ABG pCO2 54.9 H POC ABG pO2 135 H Sodium Chloride Carbon Dioxide BUN Creatinine Glucose POC Glucose 198 H Lactic Acid Phosphorus Magnesium Total Creatine Kinase CK-MB (CK-2) Triglycerides Ur Specific [place] 01/30/17 01/30/17 01/30/17 06:50 10:06 13:46 WBC RBC Hgb Hct RDW Plt Count [place] % (Auto) [place] # Seg Neutrophils % Seg Neuts % (Manual) Lymphocytes % (Manual) Monocytes % (Manual) Seg Neutrophils # Seg Neutrophils # Man Lymphocytes # (Manual) Monocytes # (Manual) POC ABG pH POC ABG pCO2 POC ABG pO2 Sodium 146 H Chloride Carbon Dioxide BUN 28 H Creatinine Glucose 234 H POC Glucose 247 H 254 H Lactic Acid Phosphorus Magnesium Total Creatine Kinase CK-MB (CK-2) Triglycerides Ur Specific [place] 01/30/17 01/30/17 01/30/17 13:50 17:50 22:04 WBC RBC Hgb Hct RDW Plt Count [place] % (Auto) [place] # Seg Neutrophils % Seg Neuts % (Manual) Lymphocytes % (Manual) Monocytes % (Manual) Seg Neutrophils # Seg Neutrophils # Man Lymphocytes # (Manual) Monocytes # (Manual) POC ABG pH POC ABG pCO2 POC ABG pO2 Sodium Chloride Carbon Dioxide BUN Creatinine Glucose POC Glucose 317 H 194 H Lactic Acid Phosphorus Magnesium Total Creatine Kinase CK-MB (CK-2) Triglycerides Ur Specific [place] 1.034 H 01/31/17 01/31/17 01/31/17 01:46 03:23 03:23 WBC 33.0 H RBC 5.05 H Hgb Hct 45.9 H RDW Plt Count [place] % (Auto) [place] # Seg Neutrophils % Seg Neuts % (Manual) 86.5 H Lymphocytes % (Manual) 8.5 L Monocytes % (Manual) Seg Neutrophils # Seg Neutrophils # Man 28.5 H Lymphocytes # (Manual) Monocytes # (Manual) 1.3 H POC ABG pH POC ABG pCO2 POC ABG pO2 Sodium 152 H Chloride 107.4 H Carbon Dioxide 35 H D BUN 28 H Creatinine Glucose 205 H POC Glucose 167 H Lactic Acid Phosphorus Magnesium Total Creatine Kinase CK-MB (CK-2) Triglycerides Ur Specific [place] 01/31/17 01/31/17 01/31/17 04:31 05:34 12:57 WBC RBC Hgb Hct RDW Plt Count [place] % (Auto) [place] # Seg Neutrophils % Seg Neuts % (Manual) Lymphocytes % (Manual) Monocytes % (Manual) Seg Neutrophils # Seg Neutrophils # Man Lymphocytes # (Manual) Monocytes # (Manual) POC ABG pH 7.521 H 7.518 H POC ABG pCO2 POC ABG pO2 Sodium Chloride Carbon Dioxide BUN Creatinine Glucose POC Glucose 174 H Lactic Acid Phosphorus Magnesium Total Creatine Kinase CK-MB (CK-2) Triglycerides Ur Specific [place] Chest x-ray: report reviewed, image reviewed (clear)
[2017-01-31] MEDS: NACL 0.45% 1000 ML 1,000 ML IV SCH (19:25)
[2017-02-01] MEDS: ATIVAN IV PRN ×3 (00:31→17:53)
[2017-02-01] MEDS: HALDOL IV PRN (00:32)
[2017-02-01 05:47] LABS: ISTAT Base Excess 9; ISTAT HCO3 32.1; ISTAT PCO2 43.7 (35-45); ISTAT PH 7.474 (7.35-7.45); ISTAT PO2 79 (80-105); ISTAT SO2 96; ISTAT TCO2 33
[2017-02-01 06:29] LABS: BUN/Creatinine Ratio 35.55; Blood Urea Nitrogen 32 mg/dL (9-20); Carbon Dioxide 27 mmol/L (22-30); Chloride 104.1 mmol/L (98-107); Glucose 260 mg/dL (75-100); Sodium 150 mmol/L (137-145)
[2017-02-01 06:33] LABS: Anion Gap 24 mmol/L
[2017-02-01 06:34] LABS: Potassium 4.9 mmol/L (3.6-5.0)
[2017-02-01 08:07] LABS: Hematocrit 46.5 % (35.5-45.6); Hemoglobin 15.3 gm/dl (11.8-15.2); Mean Corpuscular HGB Conc 33 % (32-34); Mean Corpuscular Hemoglobin 30 pg (28-32); Mean Corpuscular Volume 92 fl (84-94); Red Blood Count 5.05 M/mm3 (3.65-5.03); Red Cell Distribution Width 14.3 % (13.2-15.2)
[2017-02-01 08:14] LABS: Platelet Count 247 K/mm3 (140-440); White Blood Count 41.1 K/mm3 (4.5-11.0)
[2017-02-01 09:08] LABS: Basophils % (Manual) 0 % (0.0-1.8); Blastocytes % (Manual) 0 %; Eosinophils % (Manual) 0 % (0.0-4.3); Nucleated Red Blood Cells 0.5 % (0.0-0.9); Total Cells Counted Percent 4.5
[2017-02-01 09:09] LABS: Diff Status Complete; EDTA Platelet Clumps 3+; Stomatocytes Few
[2017-02-01] MEDS: BROVANA NEBU IH SCH ×2 (09:25→19:50)
[2017-02-01] MEDS: PULMICORT IH SCH ×2 (09:25→19:49)
[2017-02-01] MEDS: PROTONIX FEEDTUBE SCH (09:48)
[2017-02-01] MEDS: VITAMIN B-1 PO SCH (09:48)
[2017-02-01] MEDS: FOLVITE PO SCH (09:48)
[2017-02-01] MEDS: KEPPRA PO SCH ×2 (09:48→22:02)
[2017-02-01] MEDS ORDERED: TYLENOL FEEDTUBE PRN (10:08)
[2017-02-01] MEDS: LEVEMIR SUB-Q SCH (11:10)
--- NOTE | 2017-02-01 11:20 | Progress Note ---
Assessment and Plan 36 YO M Hx asthma p/w SOB c/b cardiopulmonary arrest requiring ACLS for 12 mins in hospital on 01/23 @ approx 3 AM. 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 On neuro exam as of 01/26 11 AM and 01/31 and reaffirmed 02/01 11 AM (off sedatives > 72 hrs ) is that pt has all intact brainstem reflexes but no purposeful movements as UE and LE movement limited to myoclonus and UE extensor posturing. CTH neg and EEG mod nonspecific diffuse cerebral dysfunction some ? reactivity but no seizures. Final neuro prognosis on 01/31 reaffirmed on 02/01 as pt has been off sedative for > 72 hrs is that pt DOES meet AAN criteria for poor neuro prognosis (, unconsciousness after one month, or unconsciousness or severe disability after six months). Etiology is likely d/t mod-severe anoxic encephalopathy. Recs: 1. Neuro checks Q4hrs 2. LEV 500mg IV BID to help control myoclonus 3. I have discussed with mother via phone and in person 02/01 impression and she is considering withdrawal of care in next couple days. 4. I have requested hospice service eval to assist mother in this process until she comes to decision regarding withdrawal vs. Trach/PEG. 5. We can re-eval as needed. Subjective Date of service: 02/01/17 Principal diagnosis: s/p cardiopulmonary arrest Interval history: no clinical change Objective - Vital Sign Vital Signs - 12hr 02/01/17 02/01/17 02/01/17 00:00 01:00 02:00 Temperature 100.0 F H Pulse Rate 115 H 117 H 117 H Pulse Rate [ Anterior Throughout] Pulse Rate [ Right Dorsalis Pedis] Respiratory 16 17 17 Rate Respiratory Rate [Anterior Throughout] Blood Pressure 112/72 105/68 108/68 O2 Sat by Pulse 96 90 88 Oximetry 02/01/17 02/01/17 02/01/17 03:00 04:00 04:50 Temperature 98.2 F Pulse Rate 114 H 120 H 114 H Pulse Rate [ Anterior Throughout] Pulse Rate [ Right Dorsalis Pedis] Respiratory 18 18 Rate Respiratory Rate [Anterior Throughout] Blood Pressure 111/77 111/65 111/65 O2 Sat by Pulse 93 88 95 Oximetry 02/01/17 02/01/1702/01/17 05:01 06:00 07:00 Temperature Pulse Rate 109 H 114 H 116 H Pulse Rate [ Anterior Throughout] Pulse Rate [ Right Dorsalis Pedis] Respiratory 14 22 23 Rate Respiratory Rate [Anterior Throughout] Blood Pressure 123/69 118/78 122/74 O2 Sat by Pulse 94 92 94 Oximetry 02/01/17 02/01/17 02/01/17 08:00 08:01 08:45 Temperature 100.6 F H Pulse Rate 131 H Pulse Rate [ Anterior Throughout] Pulse Rate [ 136 H Right Dorsalis Pedis] Respiratory 46 H 31 H Rate Respiratory Rate [Anterior Throughout] Blood Pressure 90/49 133/79 O2 Sat by Pulse 96 95 Oximetry 02/01/17 02/01/17 08:55 09:37 Temperature Pulse Rate Pulse Rate [ 122 H 120 H Anterior Throughout] Pulse Rate [ Right Dorsalis Pedis] Respiratory Rate Respiratory 30 H 28 H Rate [Anterior Throughout] Blood Pressure O2 Sat by Pulse Oximetry - General Apperance Constitutional: acutely ill - EENT EENT: ATNC, PERRL - Respiratory Respiratory: chest non-tender, decreased breath sounds - Cardiovascular Cardiovascular: regular rate Extremities: no clubbing, cyanosis, no inflammation, no ischemia or petechiae - Gastrointestinal Gastrointestinal: normoactive bowel sounds, non-distended - Neurologic Cranial nerve examination: PERRL, intact, Intact Vestibulo-ocular r, intact corneal reflex Detailed motor examination: other (Ext posturing UE and myoclonus) Posture: decerebrate - Musculoskeletal Musculoskeletal: normal range of motion - Laboratory Findings CBC and BMP: 02/01/17 07:28 02/01/17 04:49 Abnormal Lab Findings: Abnormal Labs 01/23/17 01/23/17 01/23/17 07:37 10:24 12:27 WBC RBC Hgb Hct RDW Plt Count Dillon % (Auto) Dillon # Seg Neutrophils % Seg Neuts % (Manual) Lymphocytes % (Manual) Monocytes % (Manual) Seg Neutrophils # Seg Neutrophils # Man Lymphocytes # (Manual) Monocytes # (Manual) POC ABG pH POC ABG pCO2 POC ABG pO2 Sodium Chloride Carbon Dioxide BUN Creatinine Glucose POC Glucose Lactic Acid Phosphorus Magnesium 3.30 H Total Creatine Kinase 503 H 523 H CK-MB (CK-2) 6.9 H 9.2 H Triglycerides Ur Specific Drake 01/23/17 01/23/17 01/23/17 12:27 16:50 21:21 WBC RBC Hgb Hct RDW Plt Count Dillon % (Auto) Dillon # Seg Neutrophils % Seg Neuts % (Manual) Lymphocytes % (Manual) Monocytes % (Manual) Seg Neutrophils # Seg Neutrophils # Man Lymphocytes # (Manual) Monocytes # (Manual) POC ABG pH POC ABG pCO2 POC ABG pO2 Sodium Chloride Carbon Dioxide BUN Creatinine Glucose POC Glucose 166 H 158 H Lactic Acid Phosphorus 1.30 L Magnesium Total Creatine Kinase CK-MB (CK-2) Triglycerides Ur Specific Drake 01/24/17 01/24/17 01/24/17 01:49 03:38 03:38 WBC 24.7 H RBC Hgb Hct RDW Plt Count 45 L Dillon % (Auto) Dillon # Seg Neutrophils % Seg Neuts % (Manual) 77.0 H Lymphocytes % (Manual) 6.0 L Monocytes % (Manual) Seg Neutrophils # Seg Neutrophils # Man 19.0 H Lymphocytes # (Manual) Monocytes # (Manual) 1.5 H POC ABG pH POC ABG pCO2 POC ABG pO2 Sodium 136 L D Chloride 97.3 L Carbon Dioxide BUN Creatinine 0.7 L Glucose 197 H POC Glucose 183 H Lactic Acid Phosphorus Magnesium Total Creatine Kinase CK-MB (CK-2) Triglycerides Ur Specific Drake 01/24/17 01/24/17 01/24/17 04:46 05:04 09:00 WBC RBC Hgb Hct RDW Plt Count Dillon % (Auto) Dillon # Seg Neutrophils % Seg Neuts % (Manual) Lymphocytes % (Manual) Monocytes % (Manual) Seg Neutrophils # Seg Neutrophils # Man Lymphocytes # (Manual) Monocytes # (Manual) POC ABG pH 7.472 H POC ABG pCO2 POC ABG pO2 Sodium Chloride Carbon Dioxide BUN Creatinine Glucose POC Glucose 193 H 220 H Lactic Acid Phosphorus Magnesium Total Creatine Kinase CK-MB (CK-2) Triglycerides Ur Specific Drake 01/24/17 01/24/17 01/24/17 12:26 14:07 18:00 WBC RBC Hgb Hct RDW Plt Count Dillon % (Auto) Dillon # Seg Neutrophils % Seg Neuts % (Manual) Lymphocytes % (Manual) Monocytes % (Manual) Seg Neutrophils # Seg Neutrophils # Man Lymphocytes # (Manual) Monocytes # (Manual) POC ABG pH POC ABG pCO2 POC ABG pO2 Sodium Chloride Carbon Dioxide BUN Creatinine Glucose POC Glucose 194 H 163 H Lactic Acid 2.30 H* Phosphorus Magnesium Total Creatine Kinase CK-MB (CK-2) Triglycerides Ur Specific Drake 01/24/17 01/25/17 01/25/17 22:39 02:20 04:36 WBC RBC Hgb Hct RDW Plt Count Dillon % (Auto) Dillon # Seg Neutrophils % Seg Neuts % (Manual) Lymphocytes % (Manual) Monocytes % (Manual) Seg Neutrophils # Seg Neutrophils # Man Lymphocytes # (Manual) Monocytes # (Manual) POC ABG pH POC ABG pCO2 46.7 H POC ABG pO2 Sodium Chloride Carbon Dioxide BUN Creatinine Glucose POC Glucose 215 H 194 H Lactic Acid Phosphorus Magnesium Total Creatine Kinase CK-MB (CK-2) Triglycerides Ur Specific Drake 01/25/17 01/25/17 01/25/17 05:37 05:37 06:03 WBC 34.5 H RBC Hgb Hct RDW Plt Count Dillon % (Auto) Dillon # Seg Neutrophils % Seg Neuts % (Manual) Lymphocytes % (Manual) Monocytes % (Manual) Seg Neutrophils # Seg Neutrophils # Man Lymphocytes # (Manual) Monocytes # (Manual) POC ABG pH POC ABG pCO2 POC ABG pO2 Sodium Chloride Carbon Dioxide BUN Creatinine 0.7 L Glucose 180 H POC Glucose 172 H Lactic Acid Phosphorus Magnesium Total Creatine Kinase CK-MB (CK-2) Triglycerides Ur Specific Drake 01/25/17 01/25/17 01/25/17 09:42 13:10 17:30 WBC RBC Hgb Hct RDW Plt Count Dillon % (Auto) Dillon # Seg Neutrophils % Seg Neuts % (Manual) Lymphocytes % (Manual) Monocytes % (Manual) Seg Neutrophils # Seg Neutrophils # Man Lymphocytes # (Manual) Monocytes # (Manual) POC ABG pH POC ABG pCO2 POC ABG pO2 Sodium Chloride Carbon Dioxide BUN Creatinine Glucose POC Glucose 177 H 190 H 179 H Lactic Acid Phosphorus Magnesium Total Creatine Kinase CK-MB (CK-2) Triglycerides Ur Specific Drake 01/25/17 01/26/17 01/26/17 21:25 00:00 05:23 WBC RBC Hgb Hct RDW Plt Count Dillon % (Auto) Dillon # Seg Neutrophils % Seg Neuts % (Manual) Lymphocytes % (Manual) Monocytes % (Manual) Seg Neutrophils # Seg Neutrophils # Man Lymphocytes # (Manual) Monocytes # (Manual) POC ABG pH POC ABG pCO2 POC ABG pO2 Sodium Chloride Carbon Dioxide BUN Creatinine Glucose POC Glucose 168 H 179 H 173 H Lactic Acid Phosphorus Magnesium Total Creatine Kinase CK-MB (CK-2) Triglycerides Ur Specific Drake 01/26/17 01/26/17 01/26/17 05:46 05:46 05:58 WBC 30.6 H RBC Hgb Hct RDW Plt Count Dillon % (Auto) Dillon # Seg Neutrophils % Seg Neuts % (Manual) 93.0 H Lymphocytes % (Manual) 5.0 L Monocytes % (Manual) Seg Neutrophils # Seg Neutrophils # Man 28.5 H Lymphocytes # (Manual) Monocytes # (Manual) POC ABG pH 7.472 H POC ABG pCO2 45.8 H POC ABG pO2 Sodium Chloride Carbon Dioxide BUN 28 H Creatinine Glucose 187 H POC Glucose Lactic Acid Phosphorus Magnesium Total Creatine Kinase CK-MB (CK-2) Triglycerides Ur Specific Drake 01/26/17 01/26/17 01/26/17 08:00 09:55 13:23 WBC RBC Hgb Hct RDW Plt Count Dillon % (Auto) Dillon # Seg Neutrophils % Seg Neuts % (Manual) Lymphocytes % (Manual) Monocytes % (Manual) Seg Neutrophils # Seg Neutrophils # Man Lymphocytes # (Manual) Monocytes # (Manual) POC ABG pH POC ABG pCO2 POC ABG pO2 Sodium Chloride Carbon Dioxide BUN Creatinine Glucose POC Glucose 162 H 191 H Lactic Acid Phosphorus Magnesium Total Creatine Kinase CK-MB (CK-2) Triglycerides 235 H Ur Specific Drake 01/26/17 01/26/17 01/27/17 17:53 21:30 01:49 WBC RBC Hgb Hct RDW Plt Count Dillon % (Auto) Dillon # Seg Neutrophils % Seg Neuts % (Manual) Lymphocytes % (Manual) Monocytes % (Manual) Seg Neutrophils # Seg Neutrophils # Man Lymphocytes # (Manual) Monocytes # (Manual) POC ABG pH POC ABG pCO2 POC ABG pO2 Sodium Chloride Carbon Dioxide BUN Creatinine Glucose POC Glucose 182 H 247 H 210 H Lactic Acid Phosphorus Magnesium Total Creatine Kinase CK-MB (CK-2) Triglycerides Ur Specific Drake 01/27/17 01/27/17 01/27/17 04:14 04:14 05:03 WBC RBC 3.27 L Hgb 9.4 L D Hct 29.4 L D RDW 18.2 H Plt Count 113 L Dillon % (Auto) Dillon # Seg Neutrophils % Seg Neuts % (Manual) 84.0 H Lymphocytes % (Manual) 4.0 L Monocytes % (Manual) Seg Neutrophils # Seg Neutrophils # Man Lymphocytes # (Manual) 0.2 L Monocytes # (Manual) POC ABG pH POC ABG pCO2 49.0 H POC ABG pO2 Sodium Chloride Carbon Dioxide BUN 33 H Creatinine Glucose 226 H POC Glucose Lactic Acid Phosphorus Magnesium Total Creatine Kinase CK-MB (CK-2) Triglycerides Ur Specific Drake 01/27/17 01/27/17 01/27/17 05:45 09:59 14:42 WBC RBC Hgb Hct RDW Plt Count Dillon % (Auto) Dillon # Seg Neutrophils % Seg Neuts % (Manual) Lymphocytes % (Manual) Monocytes % (Manual) Seg Neutrophils # Seg Neutrophils # Man Lymphocytes # (Manual) Monocytes # (Manual) POC ABG pH POC ABG pCO2 POC ABG pO2 Sodium Chloride Carbon Dioxide BUN Creatinine Glucose POC Glucose 229 H 266 H 257 H Lactic Acid Phosphorus Magnesium Total Creatine Kinase CK-MB (CK-2) Triglycerides Ur Specific Drake 01/27/17 01/27/17 01/28/17 17:28 21:54 02:00 WBC RBC Hgb Hct RDW Plt Count Dillon % (Auto) Dillon # Seg Neutrophils % Seg Neuts % (Manual) Lymphocytes % (Manual) Monocytes % (Manual) Seg Neutrophils # Seg Neutrophils # Man Lymphocytes # (Manual) Monocytes # (Manual) POC ABG pH POC ABG pCO2 POC ABG pO2 Sodium Chloride Carbon Dioxide BUN Creatinine Glucose POC Glucose 236 H 254 H 288 H Lactic Acid Phosphorus Magnesium Total Creatine Kinase CK-MB (CK-2) Triglycerides Ur Specific Drake 01/28/17 01/28/17 01/28/17 04:43 05:17 05:18 WBC RBC Hgb Hct RDW Plt Count Dillon % (Auto) Dillon # Seg Neutrophils % Seg Neuts % (Manual) Lymphocytes % (Manual) Monocytes % (Manual) Seg Neutrophils # Seg Neutrophils # Man Lymphocytes # (Manual) Monocytes # (Manual) POC ABG pH POC ABG pCO2 47.4 H POC ABG pO2 112 H Sodium Chloride Carbon Dioxide 33 H D BUN 38 H Creatinine 0.7 L D Glucose 270 H POC Glucose 198 H Lactic Acid Phosphorus Magnesium Total Creatine Kinase CK-MB (CK-2) Triglycerides Ur Specific Drake 01/28/17 01/28/17 01/28/17 07:06 10:11 14:14 WBC 31.0 H RBC Hgb Hct RDW Plt Count Dillon % (Auto) Dillon # Seg Neutrophils % Seg Neuts % (Manual) 93.0 H Lymphocytes % (Manual) 0.5 L Monocytes % (Manual) Seg Neutrophils # Seg Neutrophils # Man 28.8 H Lymphocytes # (Manual) 0.2 L Monocytes # (Manual) 2.0 H POC ABG pH POC ABG pCO2 POC ABG pO2 Sodium Chloride Carbon Dioxide BUN Creatinine Glucose POC Glucose 247 H 251 H Lactic Acid Phosphorus Magnesium Total Creatine Kinase CK-MB (CK-2) Triglycerides Ur Specific Drake 01/28/17 01/28/17 01/29/17 18:47 21:28 01:57 WBC RBC Hgb Hct RDW Plt Count Dillon % (Auto) Dillon # Seg Neutrophils % Seg Neuts % (Manual) Lymphocytes % (Manual) Monocytes % (Manual) Seg Neutrophils # Seg Neutrophils # Man Lymphocytes # (Manual) Monocytes # (Manual) POC ABG pH POC ABG pCO2 POC ABG pO2 Sodium Chloride Carbon Dioxide BUN Creatinine Glucose POC Glucose 239 H 254 H 209 H Lactic Acid Phosphorus Magnesium Total Creatine Kinase CK-MB (CK-2) Triglycerides Ur Specific Drake 01/29/17 01/29/17 01/29/17 04:04 04:04 04:24 WBC 29.7 H RBC Hgb Hct RDW Plt Count Dillon % (Auto) 10.3 H Dillon # 3.5 H Seg Neutrophils % 84.0 H Seg Neuts % (Manual) 86.0 H Lymphocytes % (Manual) 5.5 L Monocytes % (Manual) 8.5 H Seg Neutrophils # 28.5 H Seg Neutrophils # Man 25.5 H Lymphocytes # (Manual) Monocytes # (Manual) 2.5 H POC ABG pH 7.454 H POC ABG pCO2 49.3 H POC ABG pO2 Sodium 149 H Chloride Carbon Dioxide BUN 29 H Creatinine Glucose 164 H POC Glucose Lactic Acid Phosphorus Magnesium Total Creatine Kinase CK-MB (CK-2) Triglycerides Ur Specific Drake 01/29/17 01/29/17 01/29/17 05:23 09:48 13:12 WBC RBC Hgb Hct RDW Plt Count [place] % (Auto) Dillon # Seg Neutrophils % Seg Neuts % (Manual) Lymphocytes % (Manual) Monocytes % (Manual) Seg Neutrophils # Seg Neutrophils # Man Lymphocytes # (Manual) Monocytes # (Manual) POC ABG pH POC ABG pCO2 POC ABG pO2 Sodium Chloride Carbon Dioxide BUN Creatinine Glucose POC Glucose 146 H 215 H 262 H Lactic Acid Phosphorus Magnesium Total Creatine Kinase CK-MB (CK-2) Triglycerides Ur Specific Drake 01/29/17 01/29/17 01/30/17 18:11 21:26 01:44 WBC RBC Hgb Hct RDW Plt Count Dillon % (Auto) Dillon # Seg Neutrophils % Seg Neuts % (Manual) Lymphocytes % (Manual) Monocytes % (Manual) Seg Neutrophils # Seg Neutrophils # Man Lymphocytes # (Manual) Monocytes # (Manual) POC ABG pH POC ABG pCO2 POC ABG pO2 Sodium Chloride Carbon Dioxide BUN Creatinine Glucose POC Glucose 228 H 211 H 202 H Lactic Acid Phosphorus Magnesium Total Creatine Kinase CK-MB (CK-2) Triglycerides Ur Specific Drake 01/30/17 01/30/17 01/30/17 04:29 05:34 06:50 WBC 33.1 H RBC 5.08 H Hgb 15.3 H Hct 46.5 H RDW Plt Count Dillon % (Auto) Dillon # Seg Neutrophils % Seg Neuts % (Manual) 73.0 H Lymphocytes % (Manual) 10.0 L Monocytes % (Manual) Seg Neutrophils # Seg Neutrophils # Man 24.2 H Lymphocytes # (Manual) Monocytes # (Manual) 2.0 H POC ABG pH POC ABG pCO2 54.9 H POC ABG pO2 135 H Sodium Chloride Carbon Dioxide BUN Creatinine Glucose POC Glucose 198 H Lactic Acid Phosphorus Magnesium Total Creatine Kinase CK-MB (CK-2) Triglycerides Ur Specific Drake 01/30/17 01/30/17 01/30/17 06:50 10:06 13:46 WBC RBC Hgb Hct RDW Plt Count [place] % (Auto) Dillon # Seg Neutrophils % Seg Neuts % (Manual) Lymphocytes % (Manual) Monocytes % (Manual) Seg Neutrophils # Seg Neutrophils # Man Lymphocytes # (Manual) Monocytes # (Manual) POC ABG pH POC ABG pCO2 POC ABG pO2 Sodium 146 H Chloride Carbon Dioxide BUN 28 H Creatinine Glucose 234 H POC Glucose 247 H 254 H Lactic Acid Phosphorus Magnesium Total Creatine Kinase CK-MB (CK-2) Triglycerides Ur Specific Drake 01/30/17 01/30/17 01/30/17 13:50 17:50 22:04 WBC RBC Hgb Hct RDW Plt Count [place] % (Auto) Dillon # Seg Neutrophils % Seg Neuts % (Manual) Lymphocytes % (Manual) Monocytes % (Manual) Seg Neutrophils # Seg Neutrophils # Man Lymphocytes # (Manual) Monocytes # (Manual) POC ABG pH POC ABG pCO2 POC ABG pO2 Sodium Chloride Carbon Dioxide BUN Creatinine Glucose POC Glucose 317 H 194 H Lactic Acid Phosphorus Magnesium Total Creatine Kinase CK-MB (CK-2) Triglycerides Ur Specific Drake 1.034 H 01/31/17 01/31/17 01/31/17 01:46 03:23 03:23 WBC 33.0 H RBC 5.05 H Hgb Hct 45.9 H RDW Plt Count Dillon % (Auto) Dillon # Seg Neutrophils % Seg Neuts % (Manual) 86.5 H Lymphocytes % (Manual) 8.5 L Monocytes % (Manual) Seg Neutrophils # Seg Neutrophils # Man 28.5 H Lymphocytes # (Manual) Monocytes # (Manual) 1.3 H POC ABG pH POC ABG pCO2 POC ABG pO2 Sodium 152 H Chloride 107.4 H Carbon Dioxide 35 H D BUN 28 H Creatinine Glucose 205 H POC Glucose 167 H Lactic Acid Phosphorus Magnesium Total Creatine Kinase CK-MB (CK-2) Triglycerides Ur Specific Drake 01/31/17 01/31/17 01/31/17 04:31 05:34 10:17 WBC RBC Hgb Hct RDW Plt Count [place] % (Auto) Dillon # Seg Neutrophils % Seg Neuts % (Manual) Lymphocytes % (Manual) Monocytes % (Manual) Seg Neutrophils # Seg Neutrophils # Man Lymphocytes # (Manual) Monocytes # (Manual) POC ABG pH 7.521 H POC ABG pCO2 POC ABG pO2 Sodium Chloride Carbon Dioxide BUN Creatinine Glucose POC Glucose 174 H 226 H Lactic Acid Phosphorus Magnesium Total Creatine Kinase CK-MB (CK-2) Triglycerides Ur Specific Drake 01/31/17 01/31/17 01/31/17 12:57 15:04 15:06 WBC RBC Hgb Hct RDW Plt Count [place] % (Auto) Dillon # Seg Neutrophils % Seg Neuts % (Manual) Lymphocytes % (Manual) Monocytes % (Manual) Seg Neutrophils # Seg Neutrophils # Man Lymphocytes # (Manual) Monocytes # (Manual) POC ABG pH 7.518 H POC ABG pCO2 POC ABG pO2 Sodium Chloride Carbon Dioxide BUN Creatinine Glucose POC Glucose 336 H 326 H Lactic Acid Phosphorus Magnesium Total Creatine Kinase CK-MB (CK-2) Triglycerides Ur Specific Drake 01/31/17 01/31/17 02/01/17 17:48 21:43 01:58 WBC RBC Hgb Hct RDW Plt Count [place] % (Auto) [place] # Seg Neutrophils % Seg Neuts % (Manual) Lymphocytes % (Manual) Monocytes % (Manual) Seg Neutrophils # Seg Neutrophils # Man Lymphocytes # (Manual) Monocytes # (Manual) POC ABG pH POC ABG pCO2 POC ABG pO2 Sodium Chloride Carbon Dioxide BUN Creatinine Glucose POC Glucose 303 H 288 H 237 H Lactic Acid Phosphorus Magnesium Total Creatine Kinase CK-MB (CK-2) Triglycerides Ur Specific Drake 02/01/17 02/01/17 02/01/17 04:49 05:22 07:28 WBC 41.1 H* RBC 5.05 H Hgb 15.3 H Hct 46.5 H RDW Plt Count Dillon % (Auto) Dillon # Seg Neutrophils % Seg Neuts % (Manual) 88.0 H Lymphocytes % (Manual) 7.0 L Monocytes % (Manual) Seg Neutrophils # Seg Neutrophils # Man 36.2 H Lymphocytes # (Manual) Monocytes # (Manual) 1.8 H POC ABG pH 7.474 H POC ABG pCO2 POC ABG pO2 79 L Sodium 150 H Chloride Carbon Dioxide BUN 32 H Creatinine Glucose 260 H POC Glucose Lactic Acid Phosphorus Magnesium Total Creatine Kinase CK-MB (CK-2) Triglycerides Ur Specific Drake
--- NOTE | 2017-02-01 12:27 | Progress Note ---
Assessment and Plan Imp: 1. Asthma exac. 2. s/p CP arrest 3. Anoxic enceph. 4. SIRS, ? withdrawal syndrome (see admit UDS) vs. central/neuro-related; sepsis work-up continues to be negative 5. Leukocytosis, suspect stress/steroid-related 6. Hypernatremia Rec: 1. F/u repeat cultures done 01/30/17; no need to repeat again today; holding off on ABX 2. Reduced Solumedrol 3. PSV trials but mentation precludes extubation; trach/peg vs. withdrawal/ hospice 4. Increased free water + low-rate 1/2 NS; monitor sodium 5. TFs, supportive care 6. Prognosis appears poor for meaningful functional recovery 7. Mother requesting hospice/withdrawal of care; recommend securing a DNR order as well; mother not present at time of this evaluation 8. Complex decision-making No family present today; discussed on rounds Subjective Date of service: 02/01/17 Principal diagnosis: s/p cardiopulmonary arrest Interval history: + Fever. He is unresponsive on the ventilator and cannot provide history. Active Medications Acetaminophen (Tylenol) 650 mg FEEDTUBE Q6H PRN PRN Reason: Non Cardiac Pain or Temp>100.5 Albuterol (Proventil) 2.5 mg IH Q6HRT PRN PRN Reason: Shortness Of Breath Last Admin: 01/27/17 15:10 Dose: 2.5 mg Lipase/Protease/Amylase (Pancreaze Dr 10,500 Unit) 1 each FEEDTUBE PRN PRN PRN Reason: For Clogged Feeding Tube Arformoterol Tartrate (Brovana Nebu) 15 mcg IH Q12HRT [facility] Last Admin: 02/01/17 09:25 Dose: 15 mcg Budesonide (Pulmicort) 0.5 mg IH Q12HRT [facility] Last Admin: 02/01/17 09:25 Dose: 0.5 mg Folic Acid (Folvite) 1 mg PO QDAY [facility] Last Admin: 02/01/17 09:48 Dose: 1 mg Haloperidol Lactate (Haldol) 5 mg IV Q6H PRN PRN Reason: Agitation Last Admin: 02/01/17 00:32 Dose: 5 mg Hydrophilic Ointment (Vaseline Lip Therapy) 1 applic TP Q2HR PRN PRN Reason: Dry Lips Norepinephrine (Levophed Drip 4 Mg/Ns 250 Ml) 4 mg in 250 mls @ 7.5 mls/hr IV TITR MAURICE; 2 MCG/MIN PRN Reason: Protocol Last Titration: 01/23/17 09:05 Dose: 0 mcg/min, 0 mls/hr Propofol (Diprivan 10 Mg/Ml) 1,000 mg in 100 mls @ 2.517 mls/hr IV TITR MAURICE; 5 MCG/KG/MIN PRN Reason: Protocol Last Admin: 01/28/17 03:33 Dose: 10 mcg/kg/min, 5.035 mls/hr Sodium Chloride (Nacl 0.45% 1000 Ml) 1,000 mls @ 50 mls/hr IV DIRECT MAURICE Last Admin: 01/31/17 19:25 Dose: 50 mls/hr Insulin Detemir (Levemir) 10 units SUB-Q DAILY [facility] Last Admin: 01/31/17 10:20 Dose: 10 units Insulin Human Regular (Novolin R) 0 units SUB-Q Q4HR [facility] PRN Reason: Protocol Last Admin: 02/01/17 06:17 Dose: 3 units Levetiracetam (Keppra) 500 mg PO BID [facility] Last Admin: 02/01/17 09:48 Dose: 500 mg Lorazepam (Ativan) 1 mg IV Q2H PRN PRN Reason: TWITCHES Last Admin: 02/01/17 00:31 Dose: 1 mg Methylprednisolone Sodium Succinate (Solu-Medrol) 20 mg IV BID [facility] Last Admin: 01/31/17 22:11 Dose: 20 mg Multi-Ingred Cream/Lotion/Oil/Oint (Artificial Tears Ophth Oint) 1 applic OU Q4HR PRN PRN Reason: Dry Eye(s) Ondansetron HCl (Zofran) 4 mg IV Q8H PRN PRN Reason: N/V unrelieved by Reglan Last Admin: 01/28/17 03:33 Dose: 4 mg Pantoprazole (Protonix) 40 mg FEEDTUBE DAILY [facility] Last Admin: 02/01/17 09:48 Dose: 40 mg Simple Syrup (Simple Syrup) 15 ml FEEDTUBE PRN PRN PRN Reason: Hypoglycemia Simple Syrup (Simple Syrup) 30 ml FEEDTUBE PRN PRN PRN Reason: Hypoglycemia Sodium Bicarbonate (Sodium Bicarbonate) 325 mg FEEDTUBE PRN PRN PRN Reason: For Clogged Feeding Tube Sodium Chloride (Nacl 0.9% 500 Ml) 1 ml IV DIRECT MAURICE Thiamine HCl (Vitamin B-1) 100 mg PO QDAY [facility] Last Admin: 02/01/17 09:48 Dose: 100 mg Objective Vital Signs - 12hr 02/01/17 02/01/17 02/01/17 01:00 02:00 03:00 Temperature Pulse Rate 117 H 117 H 114 H Pulse Rate [ Anterior Throughout] Pulse Rate [ Right Dorsalis Pedis] Respiratory 17 17 18 Rate Respiratory Rate [Anterior Throughout] Blood Pressure 105/68 108/68 111/77 O2 Sat by Pulse 90 88 93 Oximetry 02/01/17 02/01/17 02/01/17 04:00 04:50 05:01 Temperature 98.2 F Pulse Rate 120 H 114 H 109 H Pulse Rate [ Anterior Throughout] Pulse Rate [ Right Dorsalis Pedis] Respiratory 18 14 Rate Respiratory Rate [Anterior Throughout] Blood Pressure 111/65 111/65 123/69 O2 Sat by Pulse 88 95 94 Oximetry 02/01/17 02/01/17 02/01/17 06:00 07:00 08:00 Temperature 100.6 F H Pulse Rate 114 H 116 H Pulse Rate [ Anterior Throughout] Pulse Rate [ 136 H Right Dorsalis Pedis] Respiratory 22 23 Rate Respiratory Rate [Anterior Throughout] Blood Pressure 118/78 122/74 O2 Sat by Pulse 92 94 Oximetry 02/01/17 02/01/17 02/01/17 08:01 08:45 08:55 Temperature Pulse Rate 131 H Pulse Rate [ 122 H Anterior Throughout] Pulse Rate [ Right Dorsalis Pedis] Respiratory 46 H 31 H Rate Respiratory 30 H Rate [Anterior Throughout] Blood Pressure 90/49 133/79 O2 Sat by Pulse 96 95 Oximetry 02/01/17 09:37 Temperature Pulse Rate Pulse Rate [ 120 H Anterior Throughout] Pulse Rate [ Right Dorsalis Pedis] Respiratory Rate Respiratory 28 H Rate [Anterior Throughout] Blood Pressure O2 Sat by Pulse Oximetry Constitutional: no acute distress, comatose (secondary to medications) Eyes: non-icteric ENT: other (orally intubated sedated) Neck: supple Effort: normal Ascultation: Bilateral: other (coarse BS bilaterally) Cardiovascular: other (RR, sinus tachy, no mrg) Gastrointestinal: normoactive bowel sounds, non-distended Integumentary: normal Extremities: no cyanosis, no edema, pink and warm, pulses normal Neurologic: other (unresponsive) Psychiatric: other (unable to assess) CBC and BMP: 02/01/17 07:28 02/01/17 04:49 ABG, PT/INR, D-dimer: ABG POC ABG pH 7.474 (7.35-7.45) H 02/01/17 05:22 POC ABG pCO2 43.7 (35-45) 02/01/17 05:22 POC ABG pO2 79 (80-105) L 02/01/17 05:22 POC ABG HCO3 32.1 02/01/17 05:22 POC ABG Total CO2 33 02/01/17 05:22 POC ABG O2 Sat 96 02/01/17 05:22 PT/INR, D-dimer PT 13.5 Sec. (12.2-14.9) 01/23/17 04:22 INR 0.98 (0.87-1.13) 01/23/17 04:22 D-Dimer 204.60 ng/mlDDU (0-234) 01/23/17 Unknown Abnormal lab findings: Abnormal Labs 01/23/17 01/23/17 01/23/17 07:37 10:24 12:27 WBC RBC Hgb Hct RDW Plt Count [place] % (Auto) [place] # Seg Neutrophils % Seg Neuts % (Manual) Lymphocytes % (Manual) Monocytes % (Manual) Seg Neutrophils # Seg Neutrophils # Man Lymphocytes # (Manual) Monocytes # (Manual) POC ABG pH POC ABG pCO2 POC ABG pO2 Sodium Chloride Carbon Dioxide BUN Creatinine Glucose POC Glucose Lactic Acid Phosphorus Magnesium 3.30 H Total Creatine Kinase 503 H 523 H CK-MB (CK-2) 6.9 H 9.2 H Triglycerides Ur Specific [place] 01/23/17 01/23/17 01/23/17 12:27 16:50 21:21 WBC RBC Hgb Hct RDW Plt Count [place] % (Auto) [place] # Seg Neutrophils % Seg Neuts % (Manual) Lymphocytes % (Manual) Monocytes % (Manual) Seg Neutrophils # Seg Neutrophils # Man Lymphocytes # (Manual) Monocytes # (Manual) POC ABG pH POC ABG pCO2 POC ABG pO2 Sodium Chloride Carbon Dioxide BUN Creatinine Glucose POC Glucose 166 H 158 H Lactic Acid Phosphorus 1.30 L Magnesium Total Creatine Kinase CK-MB (CK-2) Triglycerides Ur Specific [place] 01/24/17 01/24/17 01/24/17 01:49 03:38 03:38 WBC 24.7 H RBC Hgb Hct RDW Plt Count 45 L [place] % (Auto) [place] # Seg Neutrophils % Seg Neuts % (Manual) 77.0 H Lymphocytes % (Manual) 6.0 L Monocytes % (Manual) Seg Neutrophils # Seg Neutrophils # Man 19.0 H Lymphocytes # (Manual) Monocytes # (Manual) 1.5 H POC ABG pH POC ABG pCO2 POC ABG pO2 Sodium 136 L D Chloride 97.3 L Carbon Dioxide BUN Creatinine 0.7 L Glucose 197 H POC Glucose 183 H Lactic Acid Phosphorus Magnesium Total Creatine Kinase CK-MB (CK-2) Triglycerides Ur Specific [place] 01/24/17 01/24/17 01/24/17 04:46 05:04 09:00 WBC RBC Hgb Hct RDW Plt Count [place] % (Auto) [place] # Seg Neutrophils % Seg Neuts % (Manual) Lymphocytes % (Manual) Monocytes % (Manual) Seg Neutrophils # Seg Neutrophils # Man Lymphocytes # (Manual) Monocytes # (Manual) POC ABG pH 7.472 H POC ABG pCO2 POC ABG pO2 Sodium Chloride Carbon Dioxide BUN Creatinine Glucose POC Glucose 193 H 220 H Lactic Acid Phosphorus Magnesium Total Creatine Kinase CK-MB (CK-2) Triglycerides Ur Specific [place] 01/24/17 01/24/17 01/24/17 12:26 14:07 18:00 WBC RBC Hgb Hct RDW Plt Count [place] % (Auto) [place] # Seg Neutrophils % Seg Neuts % (Manual) Lymphocytes % (Manual) Monocytes % (Manual) Seg Neutrophils # Seg Neutrophils # Man Lymphocytes # (Manual) Monocytes # (Manual) POC ABG pH POC ABG pCO2 POC ABG pO2 Sodium Chloride Carbon Dioxide BUN Creatinine Glucose POC Glucose 194 H 163 H Lactic Acid 2.30 H* Phosphorus Magnesium Total Creatine Kinase CK-MB (CK-2) Triglycerides Ur Specific [place] 01/24/17 01/25/17 01/25/17 22:39 02:20 04:36 WBC RBC Hgb Hct RDW Plt Count [place] % (Auto) [place] # Seg Neutrophils % Seg Neuts % (Manual) Lymphocytes % (Manual) Monocytes % (Manual) Seg Neutrophils # Seg Neutrophils # Man Lymphocytes # (Manual) Monocytes # (Manual) POC ABG pH POC ABG pCO2 46.7 H POC ABG pO2 Sodium Chloride Carbon Dioxide BUN Creatinine Glucose POC Glucose 215 H 194 H Lactic Acid Phosphorus Magnesium Total Creatine Kinase CK-MB (CK-2) Triglycerides Ur Specific [place] 01/25/17 01/25/17 01/25/17 05:37 05:37 06:03 WBC 34.5 H RBC Hgb Hct RDW Plt Count [place] % (Auto) [place] # Seg Neutrophils % Seg Neuts % (Manual) Lymphocytes % (Manual) Monocytes % (Manual) Seg Neutrophils # Seg Neutrophils # Man Lymphocytes # (Manual) Monocytes # (Manual) POC ABG pH POC ABG pCO2 POC ABG pO2 Sodium Chloride Carbon Dioxide BUN Creatinine 0.7 L Glucose 180 H POC Glucose 172 H Lactic Acid Phosphorus Magnesium Total Creatine Kinase CK-MB (CK-2) Triglycerides Ur Specific [place] 01/25/17 01/25/17 01/25/17 09:42 13:10 17:30 WBC RBC Hgb Hct RDW Plt Count [place] % (Auto) [place] # Seg Neutrophils % Seg Neuts % (Manual) Lymphocytes % (Manual) Monocytes % (Manual) Seg Neutrophils # Seg Neutrophils # Man Lymphocytes # (Manual) Monocytes # (Manual) POC ABG pH POC ABG pCO2 POC ABG pO2 Sodium Chloride Carbon Dioxide BUN Creatinine Glucose POC Glucose 177 H 190 H 179 H Lactic Acid Phosphorus Magnesium Total Creatine Kinase CK-MB (CK-2) Triglycerides Ur Specific [place] 01/25/17 01/26/17 01/26/17 21:25 00:00 05:23 WBC RBC Hgb Hct RDW Plt Count [place] % (Auto) [place] # Seg Neutrophils % Seg Neuts % (Manual) Lymphocytes % (Manual) Monocytes % (Manual) Seg Neutrophils # Seg Neutrophils # Man Lymphocytes # (Manual) Monocytes # (Manual) POC ABG pH POC ABG pCO2 POC ABG pO2 Sodium Chloride Carbon Dioxide BUN Creatinine Glucose POC Glucose 168 H 179 H 173 H Lactic Acid Phosphorus Magnesium Total Creatine Kinase CK-MB (CK-2) Triglycerides Ur Specific [place] 01/26/17 01/26/17 01/26/17 05:46 05:46 05:58 WBC 30.6 H RBC Hgb Hct RDW Plt Count [place] % (Auto) [place] # Seg Neutrophils % Seg Neuts % (Manual) 93.0 H Lymphocytes % (Manual) 5.0 L Monocytes % (Manual) Seg Neutrophils # Seg Neutrophils # Man 28.5 H Lymphocytes # (Manual) Monocytes # (Manual) POC ABG pH 7.472 H POC ABG pCO2 45.8 H POC ABG pO2 Sodium Chloride Carbon Dioxide BUN 28 H Creatinine Glucose 187 H POC Glucose Lactic Acid Phosphorus Magnesium Total Creatine Kinase CK-MB (CK-2) Triglycerides Ur Specific [place] 01/26/17 01/26/17 01/26/17 08:00 09:55 13:23 WBC RBC Hgb Hct RDW Plt Count [place] % (Auto) [place] # Seg Neutrophils % Seg Neuts % (Manual) Lymphocytes % (Manual) Monocytes % (Manual) Seg Neutrophils # Seg Neutrophils # Man Lymphocytes # (Manual) Monocytes # (Manual) POC ABG pH POC ABG pCO2 POC ABG pO2 Sodium Chloride Carbon Dioxide BUN Creatinine Glucose POC Glucose 162 H 191 H Lactic Acid Phosphorus Magnesium Total Creatine Kinase CK-MB (CK-2) Triglycerides 235 H Ur Specific [place] 01/26/17 01/26/17 01/27/17 17:53 21:30 01:49 WBC RBC Hgb Hct RDW Plt Count [place] % (Auto) [place] # Seg Neutrophils % Seg Neuts % (Manual) Lymphocytes % (Manual) Monocytes % (Manual) Seg Neutrophils # Seg Neutrophils # Man Lymphocytes # (Manual) Monocytes # (Manual) POC ABG pH POC ABG pCO2 POC ABG pO2 Sodium Chloride Carbon Dioxide BUN Creatinine Glucose POC Glucose 182 H 247 H 210 H Lactic Acid Phosphorus Magnesium Total Creatine Kinase CK-MB (CK-2) Triglycerides Ur Specific [place] 01/27/17 01/27/17 01/27/17 04:14 04:14 05:03 WBC RBC 3.27 L Hgb 9.4 L D Hct 29.4 L D RDW 18.2 H Plt Count 113 L [place] % (Auto) [place] # Seg Neutrophils % Seg Neuts % (Manual) 84.0 H Lymphocytes % (Manual) 4.0 L Monocytes % (Manual) Seg Neutrophils # Seg Neutrophils # Man Lymphocytes # (Manual) 0.2 L Monocytes # (Manual) POC ABG pH POC ABG pCO2 49.0 H POC ABG pO2 Sodium Chloride Carbon Dioxide BUN 33 H Creatinine Glucose 226 H POC Glucose Lactic Acid Phosphorus Magnesium Total Creatine Kinase CK-MB (CK-2) Triglycerides Ur Specific [place] 01/27/17 01/27/17 01/27/17 05:45 09:59 14:42 WBC RBC Hgb Hct RDW Plt Count [place] % (Auto) [place] # Seg Neutrophils % Seg Neuts % (Manual) Lymphocytes % (Manual) Monocytes % (Manual) Seg Neutrophils # Seg Neutrophils # Man Lymphocytes # (Manual) Monocytes # (Manual) POC ABG pH POC ABG pCO2 POC ABG pO2 Sodium Chloride Carbon Dioxide BUN Creatinine Glucose POC Glucose 229 H 266 H 257 H Lactic Acid Phosphorus Magnesium Total Creatine Kinase CK-MB (CK-2) Triglycerides Ur Specific [place] 01/27/17 01/27/17 01/28/17 17:28 21:54 02:00 WBC RBC Hgb Hct RDW Plt Count [place] % (Auto) [place] # Seg Neutrophils % Seg Neuts % (Manual) Lymphocytes % (Manual) Monocytes % (Manual) Seg Neutrophils # Seg Neutrophils # Man Lymphocytes # (Manual) Monocytes # (Manual) POC ABG pH POC ABG pCO2 POC ABG pO2 Sodium Chloride Carbon Dioxide BUN Creatinine Glucose POC Glucose 236 H 254 H 288 H Lactic Acid Phosphorus Magnesium Total Creatine Kinase CK-MB (CK-2) Triglycerides Ur Specific [place] 01/28/17 01/28/17 01/28/17 04:43 05:17 05:18 WBC RBC Hgb Hct RDW Plt Count [place] % (Auto) [place] # Seg Neutrophils % Seg Neuts % (Manual) Lymphocytes % (Manual) Monocytes % (Manual) Seg Neutrophils # Seg Neutrophils # Man Lymphocytes # (Manual) Monocytes # (Manual) POC ABG pH POC ABG pCO2 47.4 H POC ABG pO2 112 H Sodium Chloride Carbon Dioxide 33 H D BUN 38 H Creatinine 0.7 L D Glucose 270 H POC Glucose 198 H Lactic Acid Phosphorus Magnesium Total Creatine Kinase CK-MB (CK-2) Triglycerides Ur Specific [place] 01/28/17 01/28/17 01/28/17 07:06 10:11 14:14 WBC 31.0 H RBC Hgb Hct RDW Plt Count [place] % (Auto) [place] # Seg Neutrophils % Seg Neuts % (Manual) 93.0 H Lymphocytes % (Manual) 0.5 L Monocytes % (Manual) Seg Neutrophils # Seg Neutrophils # Man 28.8 H Lymphocytes # (Manual) 0.2 L Monocytes # (Manual) 2.0 H POC ABG pH POC ABG pCO2 POC ABG pO2 Sodium Chloride Carbon Dioxide BUN Creatinine Glucose POC Glucose 247 H 251 H Lactic Acid Phosphorus Magnesium Total Creatine Kinase CK-MB (CK-2) Triglycerides Ur Specific [place] 01/28/17 01/28/17 01/29/17 18:47 21:28 01:57 WBC RBC Hgb Hct RDW Plt Count [place] % (Auto) [place] # Seg Neutrophils % Seg Neuts % (Manual) Lymphocytes % (Manual) Monocytes % (Manual) Seg Neutrophils # Seg Neutrophils # Man Lymphocytes # (Manual) Monocytes # (Manual) POC ABG pH POC ABG pCO2 POC ABG pO2 Sodium Chloride Carbon Dioxide BUN Creatinine Glucose POC Glucose 239 H 254 H 209 H Lactic Acid Phosphorus Magnesium Total Creatine Kinase CK-MB (CK-2) Triglycerides Ur Specific [place] 01/29/17 01/29/17 01/29/17 04:04 04:04 04:24 WBC 29.7 H RBC Hgb Hct RDW Plt Count [place] % (Auto) 10.3 H [place] # 3.5 H Seg Neutrophils % 84.0 H Seg Neuts % (Manual) 86.0 H Lymphocytes % (Manual) 5.5 L Monocytes % (Manual) 8.5 H Seg Neutrophils # 28.5 H Seg Neutrophils # Man 25.5 H Lymphocytes # (Manual) Monocytes # (Manual) 2.5 H POC ABG pH 7.454 H POC ABG pCO2 49.3 H POC ABG pO2 Sodium 149 H Chloride Carbon Dioxide BUN 29 H Creatinine Glucose 164 H POC Glucose Lactic Acid Phosphorus Magnesium Total Creatine Kinase CK-MB (CK-2) Triglycerides Ur Specific [place] 01/29/17 01/29/17 01/29/17 05:23 09:48 13:12 WBC RBC Hgb Hct RDW Plt Count [place] % (Auto) [place] # Seg Neutrophils % Seg Neuts % (Manual) Lymphocytes % (Manual) Monocytes % (Manual) Seg Neutrophils # Seg Neutrophils # Man Lymphocytes # (Manual) Monocytes # (Manual) POC ABG pH POC ABG pCO2 POC ABG pO2 Sodium Chloride Carbon Dioxide BUN Creatinine Glucose POC Glucose 146 H 215 H 262 H Lactic Acid Phosphorus Magnesium Total Creatine Kinase CK-MB (CK-2) Triglycerides Ur Specific [place] 01/29/17 01/29/17 01/30/17 18:11 21:26 01:44 WBC RBC Hgb Hct RDW Plt Count [place] % (Auto) [place] # Seg Neutrophils % Seg Neuts % (Manual) Lymphocytes % (Manual) Monocytes % (Manual) Seg Neutrophils # Seg Neutrophils # Man Lymphocytes # (Manual) Monocytes # (Manual) POC ABG pH POC ABG pCO2 POC ABG pO2 Sodium Chloride Carbon Dioxide BUN Creatinine Glucose POC Glucose 228 H 211 H 202 H Lactic Acid Phosphorus Magnesium Total Creatine Kinase CK-MB (CK-2) Triglycerides Ur Specific [place] 01/30/17 01/30/17 01/30/17 04:29 05:34 06:50 WBC 33.1 H RBC 5.08 H Hgb 15.3 H Hct 46.5 H RDW Plt Count [place] % (Auto) [place] # Seg Neutrophils % Seg Neuts % (Manual) 73.0 H Lymphocytes % (Manual) 10.0 L Monocytes % (Manual) Seg Neutrophils # Seg Neutrophils # Man 24.2 H Lymphocytes # (Manual) Monocytes # (Manual) 2.0 H POC ABG pH POC ABG pCO2 54.9 H POC ABG pO2 135 H Sodium Chloride Carbon Dioxide BUN Creatinine Glucose POC Glucose 198 H Lactic Acid Phosphorus Magnesium Total Creatine Kinase CK-MB (CK-2) Triglycerides Ur Specific [place] 01/30/17 01/30/17 01/30/17 06:50 10:06 13:46 WBC RBC Hgb Hct RDW Plt Count [place] % (Auto) [place] # Seg Neutrophils % Seg Neuts % (Manual) Lymphocytes % (Manual) Monocytes % (Manual) Seg Neutrophils # Seg Neutrophils # Man Lymphocytes # (Manual) Monocytes # (Manual) POC ABG pH POC ABG pCO2 POC ABG pO2 Sodium 146 H Chloride Carbon Dioxide BUN 28 H Creatinine Glucose 234 H POC Glucose 247 H 254 H Lactic Acid Phosphorus Magnesium Total Creatine Kinase CK-MB (CK-2) Triglycerides Ur Specific [place] 01/30/17 01/30/17 01/30/17 13:50 17:50 22:04 WBC RBC Hgb Hct RDW Plt Count [place] % (Auto) [place] # Seg Neutrophils % Seg Neuts % (Manual) Lymphocytes % (Manual) Monocytes % (Manual) Seg Neutrophils # Seg Neutrophils # Man Lymphocytes # (Manual) Monocytes # (Manual) POC ABG pH POC ABG pCO2 POC ABG pO2 Sodium Chloride Carbon Dioxide BUN Creatinine Glucose POC Glucose 317 H 194 H Lactic Acid Phosphorus Magnesium Total Creatine Kinase CK-MB (CK-2) Triglycerides Ur Specific [place] 1.034 H 01/31/17 01/31/17 01/31/17 01:46 03:23 03:23 WBC 33.0 H RBC 5.05 H Hgb Hct 45.9 H RDW Plt Count [place] % (Auto) [place] # Seg Neutrophils % Seg Neuts % (Manual) 86.5 H Lymphocytes % (Manual) 8.5 L Monocytes % (Manual) Seg Neutrophils # Seg Neutrophils # Man 28.5 H Lymphocytes # (Manual) Monocytes # (Manual) 1.3 H POC ABG pH POC ABG pCO2 POC ABG pO2 Sodium 152 H Chloride 107.4 H Carbon Dioxide 35 H D BUN 28 H Creatinine Glucose 205 H POC Glucose 167 H Lactic Acid Phosphorus Magnesium Total Creatine Kinase CK-MB (CK-2) Triglycerides Ur Specific [place] 01/31/17 01/31/17 01/31/17 04:31 05:34 10:17 WBC RBC Hgb Hct RDW Plt Count [place] % (Auto) [place] # Seg Neutrophils % Seg Neuts % (Manual) Lymphocytes % (Manual) Monocytes % (Manual) Seg Neutrophils # Seg Neutrophils # Man Lymphocytes # (Manual) Monocytes # (Manual) POC ABG pH 7.521 H POC ABG pCO2 POC ABG pO2 Sodium Chloride Carbon Dioxide BUN Creatinine Glucose POC Glucose 174 H 226 H Lactic Acid Phosphorus Magnesium Total Creatine Kinase CK-MB (CK-2) Triglycerides Ur Specific [place] 01/31/17 01/31/17 01/31/17 12:57 15:04 15:06 WBC RBC Hgb Hct RDW Plt Count [place] % (Auto) [place] # Seg Neutrophils % Seg Neuts % (Manual) Lymphocytes % (Manual) Monocytes % (Manual) Seg Neutrophils # Seg Neutrophils # Man Lymphocytes # (Manual) Monocytes # (Manual) POC ABG pH 7.518 H POC ABG pCO2 POC ABG pO2 Sodium Chloride Carbon Dioxide BUN Creatinine Glucose POC Glucose 336 H 326 H Lactic Acid Phosphorus Magnesium Total Creatine Kinase CK-MB (CK-2) Triglycerides Ur Specific [place] 01/31/17 01/31/17 02/01/17 17:48 21:43 01:58 WBC RBC Hgb Hct RDW Plt Count [place] % (Auto) [place] # Seg Neutrophils % Seg Neuts % (Manual) Lymphocytes % (Manual) Monocytes % (Manual) Seg Neutrophils # Seg Neutrophils # Man Lymphocytes # (Manual) Monocytes # (Manual) POC ABG pH POC ABG pCO2 POC ABG pO2 Sodium Chloride Carbon Dioxide BUN Creatinine Glucose POC Glucose 303 H 288 H 237 H Lactic Acid Phosphorus Magnesium Total Creatine Kinase CK-MB (CK-2) Triglycerides Ur Specific [place] 02/01/17 02/01/17 02/01/17 04:49 05:22 07:28 WBC 41.1 H* RBC 5.05 H Hgb 15.3 H Hct 46.5 H RDW Plt Count [place] % (Auto) [place] # Seg Neutrophils % Seg Neuts % (Manual) 88.0 H Lymphocytes % (Manual) 7.0 L Monocytes % (Manual) Seg Neutrophils # Seg Neutrophils # Man 36.2 H Lymphocytes # (Manual) Monocytes # (Manual) 1.8 H POC ABG pH 7.474 H POC ABG pCO2 POC ABG pO2 79 L Sodium 150 H Chloride Carbon Dioxide BUN 32 H Creatinine Glucose 260 H POC Glucose Lactic Acid Phosphorus Magnesium Total Creatine Kinase CK-MB (CK-2) Triglycerides Ur Specific [place] Chest x-ray: report reviewed, image reviewed
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
[2017-02-01] MEDS: NACL 0.45% 1000 ML 1,000 ML IV SCH (19:54)
[2017-02-02] MEDS: ATIVAN IV PRN ×2 (00:02→12:52)
[2017-02-02] MEDS: KEPPRA PO SCH (09:25)
[2017-02-02] MEDS: PROTONIX FEEDTUBE SCH (09:25)
[2017-02-02] MEDS: VITAMIN B-1 PO SCH (09:25)
[2017-02-02] MEDS: FOLVITE PO SCH (09:25)
[2017-02-02] MEDS: LEVEMIR SUB-Q SCH (10:40)
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
[2017-02-02 12:57] VITALS: BP 117/76
[2017-02-02] MEDS: BROVANA NEBU IH SCH (13:09)
[2017-02-02] MEDS: PULMICORT IH SCH (13:09)
--- NOTE | 2017-02-02 17:24 | Progress Note ---
Assessment and Plan Imp: 1. Asthma exac. 2. s/p CP arrest 3. Anoxic enceph. 4. SIRS, ? withdrawal syndrome (see admit UDS) vs. central/neuro-related; sepsis work-up continues to be negative 5. Leukocytosis, suspect stress/steroid-related 6. Hypernatremia Rec: 1. F/u repeat cultures done 01/30/17; no need to repeat again today; holding off on ABX 2. Reduced Solumedrol 3. PSV trials but mentation precludes extubation; trach/peg vs. withdrawal/ hospice 4. Increased free water + low-rate 1/2 NS; monitor sodium 5. TFs, supportive care 6. Prognosis appears poor for meaningful functional recovery 7. Mother requesting hospice/withdrawal of care; recommend securing a DNR order as well; mother not present at time of this evaluation 8. Complex decision-making No family present today; discussed on rounds Subjective Date of service: 02/02/17 Principal diagnosis: s/p cardiopulmonary arrest Interval history: + Fever. He is unresponsive on the ventilator and cannot provide history. Active Medications Acetaminophen (Tylenol) 650 mg FEEDTUBE Q6H PRN PRN Reason: Non Cardiac Pain or Temp>100.5 Albuterol (Proventil) 2.5 mg IH Q6HRT PRN PRN Reason: Shortness Of Breath Last Admin: 01/27/17 15:10 Dose: 2.5 mg Lipase/Protease/Amylase (Pancreaze Dr 10,500 Unit) 1 each FEEDTUBE PRN PRN PRN Reason: For Clogged Feeding Tube Arformoterol Tartrate (Brovana Nebu) 15 mcg IH Q12HRT [facility] Last Admin: 02/01/17 09:25 Dose: 15 mcg Budesonide (Pulmicort) 0.5 mg IH Q12HRT [facility] Last Admin: 02/01/17 09:25 Dose: 0.5 mg Folic Acid (Folvite) 1 mg PO QDAY [facility] Last Admin: 02/01/17 09:48 Dose: 1 mg Haloperidol Lactate (Haldol) 5 mg IV Q6H PRN PRN Reason: Agitation Last Admin: 02/01/17 00:32 Dose: 5 mg Hydrophilic Ointment (Vaseline Lip Therapy) 1 applic TP Q2HR PRN PRN Reason: Dry Lips Norepinephrine (Levophed Drip 4 Mg/Ns 250 Ml) 4 mg in 250 mls @ 7.5 mls/hr IV TITR MAURICE; 2 MCG/MIN PRN Reason: Protocol Last Titration: 01/23/17 09:05 Dose: 0 mcg/min, 0 mls/hr Propofol (Diprivan 10 Mg/Ml) 1,000 mg in 100 mls @ 2.517 mls/hr IV TITR MAURICE; 5 MCG/KG/MIN PRN Reason: Protocol Last Admin: 01/28/17 03:33 Dose: 10 mcg/kg/min, 5.035 mls/hr Sodium Chloride (Nacl 0.45% 1000 Ml) 1,000 mls @ 50 mls/hr IV DIRECT MAURICE Last Admin: 01/31/17 19:25 Dose: 50 mls/hr Insulin Detemir (Levemir) 10 units SUB-Q DAILY [facility] Last Admin: 01/31/17 10:20 Dose: 10 units Insulin Human Regular (Novolin R) 0 units SUB-Q Q4HR MA[place]ICE PRN Reason: Protocol Last Admin: 02/01/17 06:17 Dose: 3 units Levetiracetam (Keppra) 500 mg PO BID [facility] Last Admin: 02/01/17 09:48 Dose: 500 mg Lorazepam (Ativan) 1 mg IV Q2H PRN PRN Reason: TWITCHES Last Admin: 02/01/17 00:31 Dose: 1 mg Methylprednisolone Sodium Succinate (Solu-Medrol) 20 mg IV BID [facility] Last Admin: 01/31/17 22:11 Dose: 20 mg Multi-Ingred Cream/Lotion/Oil/Oint (Artificial Tears Ophth Oint) 1 applic OU Q4HR PRN PRN Reason: Dry Eye(s) Ondansetron HCl (Zofran) 4 mg IV Q8H PRN PRN Reason: N/V unrelieved by Reglan Last Admin: 01/28/17 03:33 Dose: 4 mg Pantoprazole (Protonix) 40 mg FEEDTUBE DAILY [facility] Last Admin: 02/01/17 09:48 Dose: 40 mg Simple Syrup (Simple Syrup) 15 ml FEEDTUBE PRN PRN PRN Reason: Hypoglycemia Simple Syrup (Simple Syrup) 30 ml FEEDTUBE PRN PRN PRN Reason: Hypoglycemia Sodium Bicarbonate (Sodium Bicarbonate) 325 mg FEEDTUBE PRN PRN PRN Reason: For Clogged Feeding Tube Sodium Chloride (Nacl 0.9% 500 Ml) 1 ml IV DIRECT MA[place] Thiamine HCl (Vitamin B-1) 100 mg PO QDAY MAURICE Last Admin: 02/01/17 09:48 Dose: 100 mg Objective Vital Signs - 12hr 02/02/17 02/02/17 02/02/17 06:00 07:00 08:00 Temperature 98.8 F Pulse Rate 116 H 112 H 118 H Respiratory 16 16 16 Rate Blood Pressure 131/74 117/64 127/70 O2 Sat by Pulse 99 100 Oximetry 02/02/17 02/02/17 02/02/17 09:00 09:30 10:00 Temperature Pulse Rate 111 H 112 H 110 H Respiratory 16 Rate Blood Pressure 128/84 123/70 O2 Sat by Pulse 95 98 Oximetry 02/02/17 02/02/17 02/02/17 10:01 11:00 12:00 Temperature 100.0 F H Pulse Rate 119 H 102 H 97 H Respiratory 19 16 16 Rate Blood Pressure 128/84 123/72 117/76 O2 Sat by Pulse 99 97 Oximetry Constitutional: no acute distress, comatose (secondary to medications) Eyes: non-icteric ENT: oropharynx moist Neck: supple Effort: normal Ascultation: Bilateral: other (coarse BS bilaterally) Percussion: Bilateral: not dull Cardiovascular: other (RR, sinus tachy, no mrg) Gastrointestinal: normoactive bowel sounds, non-distended Integumentary: normal Extremities: no cyanosis, no edema, pink and warm, pulses normal Neurologic: other (unresponsive) Psychiatric: other (unable to assess) CBC and BMP: 02/01/17 07:28 02/01/17 04:49 ABG, PT/INR, D-dimer: ABG POC ABG pH 7.474 (7.35-7.45) H 02/01/17 05:22 POC ABG pCO2 43.7 (35-45) 02/01/17 05:22 POC ABG pO2 79 (80-105) L 02/01/17 05:22 POC ABG HCO3 32.1 02/01/17 05:22 POC ABG Total CO2 33 02/01/17 05:22 POC ABG O2 Sat 96 02/01/17 05:22 PT/INR, D-dimer PT 13.5 Sec. (12.2-14.9) 01/23/17 04:22 INR 0.98 (0.87-1.13) 01/23/17 04:22 D-Dimer 204.60 ng/mlDDU (0-234) 01/23/17 Unknown Abnormal lab findings: Abnormal Labs 01/23/17 01/23/17 01/23/17 07:37 10:24 12:27 WBC RBC Hgb Hct RDW Plt Count [place] % (Auto) [place] # Seg Neutrophils % Seg Neuts % (Manual) Lymphocytes % (Manual) Monocytes % (Manual) Seg Neutrophils # Seg Neutrophils # Man Lymphocytes # (Manual) Monocytes # (Manual) POC ABG pH POC ABG pCO2 POC ABG pO2 Sodium Chloride Carbon Dioxide BUN Creatinine Glucose POC Glucose Lactic Acid Phosphorus Magnesium 3.30 H Total Creatine Kinase 503 H 523 H CK-MB (CK-2) 6.9 H 9.2 H Triglycerides Ur Specific [place] 01/23/17 01/23/17 01/23/17 12:27 16:50 21:21 WBC RBC Hgb Hct RDW Plt Count [place] % (Auto) [place] # Seg Neutrophils % Seg Neuts % (Manual) Lymphocytes % (Manual) Monocytes % (Manual) Seg Neutrophils # Seg Neutrophils # Man Lymphocytes # (Manual) Monocytes # (Manual) POC ABG pH POC ABG pCO2 POC ABG pO2 Sodium Chloride Carbon Dioxide BUN Creatinine Glucose POC Glucose 166 H 158 H Lactic Acid Phosphorus 1.30 L Magnesium Total Creatine Kinase CK-MB (CK-2) Triglycerides Ur Specific [place] 01/24/17 01/24/17 01/24/17 01:49 03:38 03:38 WBC 24.7 H RBC Hgb Hct RDW Plt Count 45 L [place] % (Auto) [place] # Seg Neutrophils % Seg Neuts % (Manual) 77.0 H Lymphocytes % (Manual) 6.0 L Monocytes % (Manual) Seg Neutrophils # Seg Neutrophils # Man 19.0 H Lymphocytes # (Manual) Monocytes # (Manual) 1.5 H POC ABG pH POC ABG pCO2 POC ABG pO2 Sodium 136 L D Chloride 97.3 L Carbon Dioxide BUN Creatinine 0.7 L Glucose 197 H POC Glucose 183 H Lactic Acid Phosphorus Magnesium Total Creatine Kinase CK-MB (CK-2) Triglycerides Ur Specific [place] 01/24/17 01/24/17 01/24/17 04:46 05:04 09:00 WBC RBC Hgb Hct RDW Plt Count [place] % (Auto) [place] # Seg Neutrophils % Seg Neuts % (Manual) Lymphocytes % (Manual) Monocytes % (Manual) Seg Neutrophils # Seg Neutrophils # Man Lymphocytes # (Manual) Monocytes # (Manual) POC ABG pH 7.472 H POC ABG pCO2 POC ABG pO2 Sodium Chloride Carbon Dioxide BUN Creatinine Glucose POC Glucose 193 H 220 H Lactic Acid Phosphorus Magnesium Total Creatine Kinase CK-MB (CK-2) Triglycerides Ur Specific [place] 01/24/17 01/24/17 01/24/17 12:26 14:07 18:00 WBC RBC Hgb Hct RDW Plt Count [place] % (Auto) [place] # Seg Neutrophils % Seg Neuts % (Manual) Lymphocytes % (Manual) Monocytes % (Manual) Seg Neutrophils # Seg Neutrophils # Man Lymphocytes # (Manual) Monocytes # (Manual) POC ABG pH POC ABG pCO2 POC ABG pO2 Sodium Chloride Carbon Dioxide BUN Creatinine Glucose POC Glucose 194 H 163 H Lactic Acid 2.30 H* Phosphorus Magnesium Total Creatine Kinase CK-MB (CK-2) Triglycerides Ur Specific [place] 01/24/17 01/25/17 01/25/17 22:39 02:20 04:36 WBC RBC Hgb Hct RDW Plt Count [place] % (Auto) [place] # Seg Neutrophils % Seg Neuts % (Manual) Lymphocytes % (Manual) Monocytes % (Manual) Seg Neutrophils # Seg Neutrophils # Man Lymphocytes # (Manual) Monocytes # (Manual) POC ABG pH POC ABG pCO2 46.7 H POC ABG pO2 Sodium Chloride Carbon Dioxide BUN Creatinine Glucose POC Glucose 215 H 194 H Lactic Acid Phosphorus Magnesium Total Creatine Kinase CK-MB (CK-2) Triglycerides Ur Specific [place] 01/25/17 01/25/17 01/25/17 05:37 05:37 06:03 WBC 34.5 H RBC Hgb Hct RDW Plt Count [place] % (Auto) [place] # Seg Neutrophils % Seg Neuts % (Manual) Lymphocytes % (Manual) Monocytes % (Manual) Seg Neutrophils # Seg Neutrophils # Man Lymphocytes # (Manual) Monocytes # (Manual) POC ABG pH POC ABG pCO2 POC ABG pO2 Sodium Chloride Carbon Dioxide BUN Creatinine 0.7 L Glucose 180 H POC Glucose 172 H Lactic Acid Phosphorus Magnesium Total Creatine Kinase CK-MB (CK-2) Triglycerides Ur Specific [place] 0701/25/17 01/25/17 09:42 13:10 17:30 WBC RBC Hgb Hct RDW Plt Count [place] % (Auto) [place] # Seg Neutrophils % Seg Neuts % (Manual) Lymphocytes % (Manual) Monocytes % (Manual) Seg Neutrophils # Seg Neutrophils # Man Lymphocytes # (Manual) Monocytes # (Manual) POC ABG pH POC ABG pCO2 POC ABG pO2 Sodium Chloride Carbon Dioxide BUN Creatinine Glucose POC Glucose 177 H 190 H 179 H Lactic Acid Phosphorus Magnesium Total Creatine Kinase CK-MB (CK-2) Triglycerides Ur Specific [place] 01/25/17 01/26/17 01/26/17 21:25 00:00 05:23 WBC RBC Hgb Hct RDW Plt Count [place] % (Auto) [place] # Seg Neutrophils % Seg Neuts % (Manual) Lymphocytes % (Manual) Monocytes % (Manual) Seg Neutrophils # Seg Neutrophils # Man Lymphocytes # (Manual) Monocytes # (Manual) POC ABG pH POC ABG pCO2 POC ABG pO2 Sodium Chloride Carbon Dioxide BUN Creatinine Glucose POC Glucose 168 H 179 H 173 H Lactic Acid Phosphorus Magnesium Total Creatine Kinase CK-MB (CK-2) Triglycerides Ur Specific [place] 01/26/17 01/26/17 01/26/17 05:46 05:46 05:58 WBC 30.6 H RBC Hgb Hct RDW Plt Count [place] % (Auto) [place] # Seg Neutrophils % Seg Neuts % (Manual) 93.0 H Lymphocytes % (Manual) 5.0 L Monocytes % (Manual) Seg Neutrophils # Seg Neutrophils # Man 28.5 H Lymphocytes # (Manual) Monocytes # (Manual) POC ABG pH 7.472 H POC ABG pCO2 45.8 H POC ABG pO2 Sodium Chloride Carbon Dioxide BUN 28 H Creatinine Glucose 187 H POC Glucose Lactic Acid Phosphorus Magnesium Total Creatine Kinase CK-MB (CK-2) Triglycerides Ur Specific [place] 01/26/17 01/26/17 01/26/17 08:00 09:55 13:23 WBC RBC Hgb Hct RDW Plt Count [place] % (Auto) [place] # Seg Neutrophils % Seg Neuts % (Manual) Lymphocytes % (Manual) Monocytes % (Manual) Seg Neutrophils # Seg Neutrophils # Man Lymphocytes # (Manual) Monocytes # (Manual) POC ABG pH POC ABG pCO2 POC ABG pO2 Sodium Chloride Carbon Dioxide BUN Creatinine Glucose POC Glucose 162 H 191 H Lactic Acid Phosphorus Magnesium Total Creatine Kinase CK-MB (CK-2) Triglycerides 235 H Ur Specific [place] 01/26/17 01/26/17 01/27/17 17:53 21:30 01:49 WBC RBC Hgb Hct RDW Plt Count [place] % (Auto) [place] # Seg Neutrophils % Seg Neuts % (Manual) Lymphocytes % (Manual) Monocytes % (Manual) Seg Neutrophils # Seg Neutrophils # Man Lymphocytes # (Manual) Monocytes # (Manual) POC ABG pH POC ABG pCO2 POC ABG pO2 Sodium Chloride Carbon Dioxide BUN Creatinine Glucose POC Glucose 182 H 247 H 210 H Lactic Acid Phosphorus Magnesium Total Creatine Kinase CK-MB (CK-2) Triglycerides Ur Specific [place] 01/27/17 01/27/17 01/27/17 04:14 04:14 05:03 WBC RBC 3.27 L Hgb 9.4 L D Hct 29.4 L D RDW 18.2 H Plt Count 113 L [place] % (Auto) [place] # Seg Neutrophils % Seg Neuts % (Manual) 84.0 H Lymphocytes % (Manual) 4.0 L Monocytes % (Manual) Seg Neutrophils # Seg Neutrophils # Man Lymphocytes # (Manual) 0.2 L Monocytes # (Manual) POC ABG pH POC ABG pCO2 49.0 H POC ABG pO2 Sodium Chloride Carbon Dioxide BUN 33 H Creatinine Glucose 226 H POC Glucose Lactic Acid Phosphorus Magnesium Total Creatine Kinase CK-MB (CK-2) Triglycerides Ur Specific [place] 01/27/17 01/27/17 01/27/17 05:45 09:59 14:42 WBC RBC Hgb Hct RDW Plt Count [place] % (Auto) [place] # Seg Neutrophils % Seg Neuts % (Manual) Lymphocytes % (Manual) Monocytes % (Manual) Seg Neutrophils # Seg Neutrophils # Man Lymphocytes # (Manual) Monocytes # (Manual) POC ABG pH POC ABG pCO2 POC ABG pO2 Sodium Chloride Carbon Dioxide BUN Creatinine Glucose POC Glucose 229 H 266 H 257 H Lactic Acid Phosphorus Magnesium Total Creatine Kinase CK-MB (CK-2) Triglycerides Ur Specific [place] 01/27/17 01/27/17 01/28/17 17:28 21:54 02:00 WBC RBC Hgb Hct RDW Plt Count [place] % (Auto) [place] # Seg Neutrophils % Seg Neuts % (Manual) Lymphocytes % (Manual) Monocytes % (Manual) Seg Neutrophils # Seg Neutrophils # Man Lymphocytes # (Manual) Monocytes # (Manual) POC ABG pH POC ABG pCO2 POC ABG pO2 Sodium Chloride Carbon Dioxide BUN Creatinine Glucose POC Glucose 236 H 254 H 288 H Lactic Acid Phosphorus Magnesium Total Creatine Kinase CK-MB (CK-2) Triglycerides Ur Specific [place] 01/28/17 01/28/17 01/28/17 04:43 05:17 05:18 WBC RBC Hgb Hct RDW Plt Count [place] % (Auto) [place] # Seg Neutrophils % Seg Neuts % (Manual) Lymphocytes % (Manual) Monocytes % (Manual) Seg Neutrophils # Seg Neutrophils # Man Lymphocytes # (Manual) Monocytes # (Manual) POC ABG pH POC ABG pCO2 47.4 H POC ABG pO2 112 H Sodium Chloride Carbon Dioxide 33 H D BUN 38 H Creatinine 0.7 L D Glucose 270 H POC Glucose 198 H Lactic Acid Phosphorus Magnesium Total Creatine Kinase CK-MB (CK-2) Triglycerides Ur Specific [place] 01/28/17 01/28/17 01/28/17 07:06 10:11 14:14 WBC 31.0 H RBC Hgb Hct RDW Plt Count [place] % (Auto) [place] # Seg Neutrophils % Seg Neuts % (Manual) 93.0 H Lymphocytes % (Manual) 0.5 L Monocytes % (Manual) Seg Neutrophils # Seg Neutrophils # Man 28.8 H Lymphocytes # (Manual) 0.2 L Monocytes # (Manual) 2.0 H POC ABG pH POC ABG pCO2 POC ABG pO2 Sodium Chloride Carbon Dioxide BUN Creatinine Glucose POC Glucose 247 H 251 H Lactic Acid Phosphorus Magnesium Total Creatine Kinase CK-MB (CK-2) Triglycerides Ur Specific [place] 01/28/17 01/28/17 01/29/17 18:47 21:28 01:57 WBC RBC Hgb Hct RDW Plt Count [place] % (Auto) [place] # Seg Neutrophils % Seg Neuts % (Manual) Lymphocytes % (Manual) Monocytes % (Manual) Seg Neutrophils # Seg Neutrophils # Man Lymphocytes # (Manual) Monocytes # (Manual) POC ABG pH POC ABG pCO2 POC ABG pO2 Sodium Chloride Carbon Dioxide BUN Creatinine Glucose POC Glucose 239 H 254 H 209 H Lactic Acid Phosphorus Magnesium Total Creatine Kinase CK-MB (CK-2) Triglycerides Ur Specific [place] 01/29/17 01/29/17 01/29/17 04:04 04:04 04:24 WBC 29.7 H RBC Hgb Hct RDW Plt Count [place] % (Auto) 10.3 H [place] # 3.5 H Seg Neutrophils % 84.0 H Seg Neuts % (Manual) 86.0 H Lymphocytes % (Manual) 5.5 L Monocytes % (Manual) 8.5 H Seg Neutrophils # 28.5 H Seg Neutrophils # Man 25.5 H Lymphocytes # (Manual) Monocytes # (Manual) 2.5 H POC ABG pH 7.454 H POC ABG pCO2 49.3 H POC ABG pO2 Sodium 149 H Chloride Carbon Dioxide BUN 29 H Creatinine Glucose 164 H POC Glucose Lactic Acid Phosphorus Magnesium Total Creatine Kinase CK-MB (CK-2) Triglycerides Ur Specific [place] 01/29/17 01/29/17 01/29/17 05:23 09:48 13:12 WBC RBC Hgb Hct RDW Plt Count [place] % (Auto) [place] # Seg Neutrophils % Seg Neuts % (Manual) Lymphocytes % (Manual) Monocytes % (Manual) Seg Neutrophils # Seg Neutrophils # Man Lymphocytes # (Manual) Monocytes # (Manual) POC ABG pH POC ABG pCO2 POC ABG pO2 Sodium Chloride Carbon Dioxide BUN Creatinine Glucose POC Glucose 146 H 215 H 262 H Lactic Acid Phosphorus Magnesium Total Creatine Kinase CK-MB (CK-2) Triglycerides Ur Specific [place] 01/29/17 01/29/17 01/30/17 18:11 21:26 01:44 WBC RBC Hgb Hct RDW Plt Count [place] % (Auto) [place] # Seg Neutrophils % Seg Neuts % (Manual) Lymphocytes % (Manual) Monocytes % (Manual) Seg Neutrophils # Seg Neutrophils # Man Lymphocytes # (Manual) Monocytes # (Manual) POC ABG pH POC ABG pCO2 POC ABG pO2 Sodium Chloride Carbon Dioxide BUN Creatinine Glucose POC Glucose 228 H 211 H 202 H Lactic Acid Phosphorus Magnesium Total Creatine Kinase CK-MB (CK-2) Triglycerides Ur Specific [place] 01/30/17 01/30/17 01/30/17 04:29 05:34 06:50 WBC 33.1 H RBC 5.08 H Hgb 15.3 H Hct 46.5 H RDW Plt Count [place] % (Auto) [place] # Seg Neutrophils % Seg Neuts % (Manual) 73.0 H Lymphocytes % (Manual) 10.0 L Monocytes % (Manual) Seg Neutrophils # Seg Neutrophils # Man 24.2 H Lymphocytes # (Manual) Monocytes # (Manual) 2.0 H POC ABG pH POC ABG pCO2 54.9 H POC ABG pO2 135 H Sodium Chloride Carbon Dioxide BUN Creatinine Glucose POC Glucose 198 H Lactic Acid Phosphorus Magnesium Total Creatine Kinase CK-MB (CK-2) Triglycerides Ur Specific [place] 01/30/17 01/30/17 01/30/17 06:50 10:06 13:46 WBC RBC Hgb Hct RDW Plt Count [place] % (Auto) [place] # Seg Neutrophils % Seg Neuts % (Manual) Lymphocytes % (Manual) Monocytes % (Manual) Seg Neutrophils # Seg Neutrophils # Man Lymphocytes # (Manual) Monocytes # (Manual) POC ABG pH POC ABG pCO2 POC ABG pO2 Sodium 146 H Chloride Carbon Dioxide BUN 28 H Creatinine Glucose 234 H POC Glucose 247 H 254 H Lactic Acid Phosphorus Magnesium Total Creatine Kinase CK-MB (CK-2) Triglycerides Ur Specific [place] 01/30/17 01/30/17 01/30/17 13:50 17:50 22:04 WBC RBC Hgb Hct RDW Plt Count [place] % (Auto) [place] # Seg Neutrophils % Seg Neuts % (Manual) Lymphocytes % (Manual) Monocytes % (Manual) Seg Neutrophils # Seg Neutrophils # Man Lymphocytes # (Manual) Monocytes # (Manual) POC ABG pH POC ABG pCO2 POC ABG pO2 Sodium Chloride Carbon Dioxide BUN Creatinine Glucose POC Glucose 317 H 194 H Lactic Acid Phosphorus Magnesium Total Creatine Kinase CK-MB (CK-2) Triglycerides Ur Specific [place] 1.034 H 01/31/17 01/31/17 01/31/17 01:46 03:23 03:23 WBC 33.0 H RBC 5.05 H Hgb Hct 45.9 H RDW Plt Count [place] % (Auto) [place] # Seg Neutrophils % Seg Neuts % (Manual) 86.5 H Lymphocytes % (Manual) 8.5 L Monocytes % (Manual) Seg Neutrophils # Seg Neutrophils # Man 28.5 H Lymphocytes # (Manual) Monocytes # (Manual) 1.3 H POC ABG pH POC ABG pCO2 POC ABG pO2 Sodium 152 H Chloride 107.4 H Carbon Dioxide 35 H D BUN 28 H Creatinine Glucose 205 H POC Glucose 167 H Lactic Acid Phosphorus Magnesium Total Creatine Kinase CK-MB (CK-2) Triglycerides Ur Specific [place] 01/31/17 01/31/17 01/31/17 04:31 05:34 10:17 WBC RBC Hgb Hct RDW Plt Count [place] % (Auto) [place] # Seg Neutrophils % Seg Neuts % (Manual) Lymphocytes % (Manual) Monocytes % (Manual) Seg Neutrophils # Seg Neutrophils # Man Lymphocytes # (Manual) Monocytes # (Manual) POC ABG pH 7.521 H POC ABG pCO2 POC ABG pO2 Sodium Chloride Carbon Dioxide BUN Creatinine Glucose POC Glucose 174 H 226 H Lactic Acid Phosphorus Magnesium Total Creatine Kinase CK-MB (CK-2) Triglycerides Ur Specific [place] 01/31/17 01/31/17 01/31/17 12:57 15:04 15:06 WBC RBC Hgb Hct RDW Plt Count [place] % (Auto) [place] # Seg Neutrophils % Seg Neuts % (Manual) Lymphocytes % (Manual) Monocytes % (Manual) Seg Neutrophils # Seg Neutrophils # Man Lymphocytes # (Manual) Monocytes # (Manual) POC ABG pH 7.518 H POC ABG pCO2 POC ABG pO2 Sodium Chloride Carbon Dioxide BUN Creatinine Glucose POC Glucose 336 H 326 H Lactic Acid Phosphorus Magnesium Total Creatine Kinase CK-MB (CK-2) Triglycerides Ur Specific [place] 01/31/17 01/31/17 02/01/17 17:48 21:43 01:58 WBC RBC Hgb Hct RDW Plt Count [place] % (Auto) [place] # Seg Neutrophils % Seg Neuts % (Manual) Lymphocytes % (Manual) Monocytes % (Manual) Seg Neutrophils # Seg Neutrophils # Man Lymphocytes # (Manual) Monocytes # (Manual) POC ABG pH POC ABG pCO2 POC ABG pO2 Sodium Chloride Carbon Dioxide BUN Creatinine Glucose POC Glucose 303 H 288 H 237 H Lactic Acid Phosphorus Magnesium Total Creatine Kinase CK-MB (CK-2) Triglycerides Ur Specific [place] 02/01/17 02/01/17 02/01/17 04:49 05:22 05:51 WBC RBC Hgb Hct RDW Plt Count [place] % (Auto) [place] # Seg Neutrophils % Seg Neuts % (Manual) Lymphocytes % (Manual) Monocytes % (Manual) Seg Neutrophils # Seg Neutrophils # Man Lymphocytes # (Manual) Monocytes # (Manual) POC ABG pH 7.474 H POC ABG pCO2 POC ABG pO2 79 L Sodium 150 H Chloride Carbon Dioxide BUN 32 H Creatinine Glucose 260 H POC Glucose 243 H Lactic Acid Phosphorus Magnesium Total Creatine Kinase CK-MB (CK-2) Triglycerides Ur Specific [place] 02/01/17 02/01/17 02/01/17 07:28 09:40 14:30 WBC 41.1 H* RBC 5.05 H Hgb 15.3 H Hct 46.5 H RDW Plt Count [place] % (Auto) [place] # Seg Neutrophils % Seg Neuts % (Manual) 88.0 H Lymphocytes % (Manual) 7.0 L Monocytes % (Manual) Seg Neutrophils # Seg Neutrophils # Man 36.2 H Lymphocytes # (Manual) Monocytes # (Manual) 1.8 H POC ABG pH POC ABG pCO2 POC ABG pO2 Sodium Chloride Carbon Dioxide BUN Creatinine Glucose POC Glucose 196 H 306 H Lactic Acid Phosphorus Magnesium Total Creatine Kinase CK-MB (CK-2) Triglycerides Ur Specific [place] 02/01/17 02/01/17 02/02/17 16:52 21:15 01:57 WBC RBC Hgb Hct RDW Plt Count [place] % (Auto) [place] # Seg Neutrophils % Seg Neuts % (Manual) Lymphocytes % (Manual) Monocytes % (Manual) Seg Neutrophils # Seg Neutrophils # Man Lymphocytes # (Manual) Monocytes # (Manual) POC ABG pH POC ABG pCO2 POC ABG pO2 Sodium Chloride Carbon Dioxide BUN Creatinine Glucose POC Glucose 296 H 185 H 126 H Lactic Acid Phosphorus Magnesium Total Creatine Kinase CK-MB (CK-2) Triglycerides Ur Specific [place] 02/02/17 02/02/17 05:07 10:10 WBC RBC Hgb Hct RDW Plt Count [place] % (Auto) [place] # Seg Neutrophils % Seg Neuts % (Manual) Lymphocytes % (Manual) Monocytes % (Manual) Seg Neutrophils # Seg Neutrophils # Man Lymphocytes # (Manual) Monocytes # (Manual) POC ABG pH POC ABG pCO2 POC ABG pO2 Sodium Chloride Carbon Dioxide BUN Creatinine Glucose POC Glucose 202 H 143 H Lactic Acid Phosphorus Magnesium Total Creatine Kinase CK-MB (CK-2) Triglycerides Ur Specific [place] Chest x-ray: report reviewed, image reviewed
== END 2017-02-02 12:55 | disposition hospice, inpatient (51) | DRG 870 ==
LOC: ED 04:10 → CC1 06:10
PROVIDERS: ADMIT Internal Medicine; ATTEND Internal Medicine
PROC: 4A033R1 Measurement of Arterial Saturation, Peripheral, Percutaneous Approach (ICD-10-PCS; principal; 2017-01-23)
PROC: 5A1955Z Respiratory Ventilation, Greater than 96 Consecutive Hours (ICD-10-PCS; 2017-01-23)
PROC: 0BH17EZ Insertion of Endotracheal Airway into Trachea, Via Natural or Artificial Opening (ICD-10-PCS; 2017-01-23)
DX: A41.9 Sepsis, unspecified organism (principal); J96.01 Acute respiratory failure with hypoxia; I46.9 Cardiac arrest, cause unspecified; G93.40 Encephalopathy, unspecified; Z51.5 Encounter for palliative care; J45.902 Unspecified asthma with status asthmaticus; G93.1 Anoxic brain damage, not elsewhere classified; I48.92 Unspecified atrial flutter; J45.901 Unspecified asthma with (acute) exacerbation; E87.0 Hyperosmolality and hypernatremia; G25.3 Myoclonus; D69.6 Thrombocytopenia, unspecified
CPT/HCPCS: 36415; 36600; 70450; 71010; 74000; 80048; 80053; 80307; 81001; 82140; 82550; 82553; 82803; 82962; 83735; 83880; 84100; 84132; 84478; 84484; 85007; 85025; 85027; 85379; 85610; 85730; 86850; 86900; 86901; 87040; 87070; 87086; 87205; 92950; 93005; 93010; 93306; 94002; 94003; 94640; 94644; 95819; 96365; 96375; J1200; J1265; J1630; J1650; J1815; J1818; J1953; J2060; J2250; J2270; J2405; J2704; J2920; J2930; J3010; J3246; J3475; J7030; J7040